=== PATIENT | male | born 1960 | race Hispanic/Latino ===

== ENCOUNTER 2020-02-08 14:04 | Inpatient (IN) | payer OTHER ==
--- OUTSIDE RECORDS SUMMARY | 2020-02-08 14:07 | XMS REPORT | Continuity of Care Document ---
:1960 Author Organization [facility] t Address [address] [place] [address] Dr. Gray [address] [place] [id number] Care Team Providers Name Role Phone Unavailable Unavailable Unavailable Problems This patient has no known problems. Allergies, Adverse Reactions, Alerts This patient has no known allergies or adverse reactions. Medications This patient has no known medications. Procedures This patient has no known procedures. Results This patient has no known results.
--- NOTE | 2020-02-08 15:05 | RAD REPORT ---
EXAM DESCRIPTION: RAD - Chest Single View - 02/08/2020 2:56 pm CLINICAL HISTORY: CONGESTION Chest pain. COMPARISON: No comparisons FINDINGS: Portable technique limits examination quality. Mild bilateral pulmonary opacities are present likely representing interstitial pneumonia. The heart is mildly enlarged in size. No displaced fractures.
[2020-02-08] MEDS ORDERED: AZITHROMYCIN 250 MG TAB ONE (15:24)
[2020-02-08] MEDS ORDERED: prednisoLONE 15 MG/5 ML OSYR ONE (15:25)
--- NOTE | 2020-02-08 15:50 | EDPHYS ---
Physician Documentation [facility] Name: Tobin Alfonso Sr Age: 59 yrs Sex: Male : 1960 Arrival Date: 02/08/2020 Time: 14:11 Bed 19 Private MD: ED Physician Radu Medel HPI: 02/07 14:45 This 59 yrs old Male presents to ER via Ambulatory with complaints of ma2 Weakness, Fever, Vomiting/Diarrhea, Low O2, COVID positive. 14:45 This 59 yrs old Male presents to ER via Ambulatory with complaints of ma2 Weakness, Fever, Vomiting/Diarrhea, Low O2, COVID positive. 14:45 Onset: The symptoms/episode began/occurred gradually. Onset: The symptoms/episode ma2 began/occurred 1 day(s) ago. Associated signs and symptoms: Pertinent negatives: dizziness, headache, paresthesias, syncope, visual field changes, weakness. Severity of symptoms: At their worst the symptoms were moderate in the emergency department the symptoms are unchanged. Current symptoms:. The patient has not experienced similar symptoms in the past. flu like symptoms . Historical: - Allergies: 14:24 No Known Allergies; dm5 - Home Meds: 14:24 unknown HTN and cholesterol meds [Active]; dm5 - PMHx: 14:24 Hypertension; Hyperlipidemia; dm5 - PSHx: 14:24 Hernia repair; nasal surgery; Cholecystectomy; back surgery; dm5 - Immunization history:: Adult Immunizations up to date. - Social history:: Patient/guardian denies using alcohol, street drugs, The patient lives with family, Smoking status: Patient denies any tobacco usage or history of. - Family history:: not pertinent. ROS: 14:47 Constitutional: Negative for fever, chills, and weight loss. ma2 14:47 All other systems are negative. Exam: 14:47 Constitutional: This is a well developed, well nourished patient who is awake, alert, ma2 and in no acute distress. Head/Face: Normocephalic, atraumatic. Eyes: Pupils equal round and reactive to light, extra-ocular motions intact. Lids and lashes normal. Conjunctiva and sclera are non-icteric and not injected. Cornea within normal limits. Periorbital areas with no swelling, redness, or edema. ENT: Nares patent. No nasal discharge, no septal abnormalities noted. Tympanic membranes are normal and external auditory canals are clear. Oropharynx with no redness, swelling, or masses, exudates, or evidence of obstruction, uvula midline. Mucous membranes moist. Neck: Trachea midline, no thyromegaly or masses palpated, and no cervical lymphadenopathy. Supple, full range of motion without nuchal rigidity, or vertebral point tenderness. No Meningismus. Chest/axilla: Normal chest wall appearance and motion. Nontender with no deformity. No lesions are appreciated. Cardiovascular: Regular rate and rhythm with a normal S1 and S2. No gallops, murmurs, or rubs. Normal PMI, no JVD. No pulse deficits. Respiratory: Lungs have equal breath sounds bilaterally, clear to auscultation and percussion. No rales, rhonchi or wheezes noted. No increased work of breathing, no retractions or nasal flaring. Abdomen/GI: Soft, non-tender, with normal bowel sounds. No distension or tympany. No guarding or rebound. No evidence of tenderness throughout. Back: No spinal tenderness. No costovertebral tenderness. Full range of motion. MS/ Extremity: Pulses equal, no cyanosis. Neurovascular intact. Full, normal range of motion. Neuro: Awake and alert, GCS 15, oriented to person, place, time, and situation. Cranial nerves II-XII grossly intact. Motor strength 5/5 in all extremities. Sensory grossly intact. Cerebellar exam normal. Normal gait. Vital Signs: 15:30 BP 158 / 83; Pulse 110; Resp 22; Temp 102.6(O); Pulse Ox 82% on R/A; vc 15:56 BP 171 / 76; Pulse 108; Resp 24; Pulse Ox 93% on R/A; vc 17:00 BP 138 / 77; Pulse 98; Resp 20; Temp 100.7(O); Pulse Ox 92% on 4 lpm NC; vc 17:48 BP 145 / 66; Pulse 99; Resp 20; Pulse Ox 91% on 4 lpm NC; vc MDM: 14:21 Patient medically screened. [facility] 15:48 Data reviewed: vital signs, nurses notes. id2 15:48 Counseling: I had a detailed discussion with the patient and/or guardian regarding: the [facility] historical points, exam findings, and any diagnostic results supporting the discharge/admit diagnosis, the presence of at least one elevated blood pressure reading (>120/80) during this emergency department visit, the need for further work-up and treatment in the hospital. Response to treatment: the patient's symptoms have markedly improved after treatment. 02/07 14:39 Order name: COVID-19 [facility] 02/07 14:39 Order name: Flu [facility] 02/07 14:39 Order name: Strep [facility] 02/07 15:31 Order name: CBC with Diff [facility] 02/07 15:31 Order name: CMP [facility] 02/07 16:20 Order name: Throat Culture [facility] 02/07 14:39 Order name: CXR XRAY; Complete Time: 15:25 [facility] 02/07 16:29 Order name: CBC Smear Scan [facility] 02/07 14:39 Order name: Droplet/Contact Precautions; Complete Time: 16:36 [facility] 02/07 14:39 Order name: Labs collected and sent; Complete Time: 15:54 [facility] 02/07 14:39 Order name: Notify Health Dept [phone]/ ; Complete Time: 16:36 [facility] 02/07 14:39 Order name: O2 Per Protocol; Complete Time: 16:36 [facility] 02/07 14:42 Order name: Vital Signs; Complete Time: 15:54 ma2 Administered Medications: 15:48 CANCELLED (recommend d/c by dr. serna): NS 0.9% 1000 ml IV at 1 bolus Per protocol; ma2 1000 mL bolus 15:53 Drug: Tylenol 1000 mg Route: PO; vc 15:54 Drug: prednisoLONE Liquid 60 mg Route: PO; vc 15:54 Drug: AZITHromycin 500 mg Route: PO; vc 16:32 Drug: Lasix 20 mg Route: IVP; Site: right antecubital; vc 17:00 Follow up: Response: No adverse reaction vc Disposition: 02/08/20 15:50 Hospitalization ordered by Dom Serna for Inpatient Admission. Preliminary diagnosis are Hypoxemia, Pneumonia due to other specified infectious organisms, Coronavirus infection, unspecified. - Bed requested for Intensive Care Unit. - Status is Inpatient Admission. vc - Condition is Stable. - Problem is new. - Symptoms are unchanged. Signatures: Dispatcher [employer] EDPA Asha Shaikh, RN RN Aurelio Berry em1 Radu Medel MD MD id2 Vanessa Hernandez RN RN vc Corrections: (The following items were deleted from the chart) 15:48 15:33 NS 0.9% 1000 ml IV at 1 bolus Per protocol; 1000 mL bolus ordered. id2 id2 16:36 14:39 Document PUI# ordered. id2 vc 17:31 15:50 Hospitalization Ordered by Dom Serna MD for Inpatient Admission. em1 Preliminary diagnosis is Hypoxemia; Pneumonia due to other specified infectious organisms; Coronavirus infection, unspecified. Bed requested for Telemetry/MedSurg (Inpatient). Status is Inpatient Admission. Condition is Stable. Problem is new. Symptoms are unchanged. id2 18:13 17:31 02/08/2020 15:50 Hospitalization Ordered by Dom Serna MD for Inpatient vc Admission. Preliminary diagnosis is Hypoxemia; Pneumonia due to other specified infectious organisms; Coronavirus infection, unspecified. Bed requested for Intensive Care Unit. Status is Inpatient Admission. Condition is Stable. Problem is new. Symptoms are unchanged. em1
--- NOTE | 2020-02-08 15:50 | ER ---
Nurse's Notes [facility] Name: Tobin Alfonso Sr Age: 59 yrs Sex: Male : 1960 Arrival Date: 02/08/2020 Time: 14:11 Bed 19 Private MD: Diagnosis: Hypoxemia;Pneumonia due to other specified infectious organisms;Coronavirus infection, unspecified Presentation: 02/07 14:20 Chief complaint: Patient states: tested for COVID 2 weeks ago and was negative. Mother dm5 in law tested positive and he has been around her. Pt c/o difficulty breathing, cough, sneezing, n/v, temp of 102.8 reported at home. O2 saturation reported to be 85% at home. Coronavirus screen: Surgical mask placed on patient. Patient moved to private room, placed in contact and droplet isolation with eye protection until further assessment. Patient reports a cough. Patient reports shortness of breath or difficulty breathing. Patient reports a measured and/or subjective temperature greater than 100.4F. Patient reports contact with known and/or suspected case of COVID-19. Ebola Screen: Patient negative for fever greater than or equal to 101.5 degrees Fahrenheit, and additional compatible Ebola Virus Disease symptoms Patient denies exposure to infectious person. Patient denies travel to an Ebola-affected area in the 21 days before illness onset. No symptoms or risks identified at this time. Risk Assessment: Do you want to hurt yourself or someone else? Patient reports no desire to harm self or others. Onset of symptoms was February 08, 2020. 14:20 Method Of Arrival: Ambulatory [facility] 14:20 Acuity: ANGELICA 3 dm5 15:15 Initial Sepsis Screen: Does the patient meet any 2 criteria? RR > 20 per min. Temp vc <36.0*C (96.8*F)) or > 38.3*C (100.9*F). HR > 90 bpm. Yes Does the patient have a suspected source of infection? Yes: Productive cough/pneumonia If YES to both, name of provider notified: Radu Medel MD. Historical: - Allergies: 14:24 No Known Allergies; dm5 - Home Meds: 14:24 unknown HTN and cholesterol meds [Active]; dm5 - PMHx: 14:24 Hypertension; Hyperlipidemia; dm5 - PSHx: 14:24 Hernia repair; nasal surgery; Cholecystectomy; back surgery; dm5 - Immunization history:: Adult Immunizations up to date. - Social history:: Patient/guardian denies using alcohol, street drugs, The patient lives with family, Smoking status: Patient denies any tobacco usage or history of. - Family history:: not pertinent. Screenin:15 Abuse screen: Denies threats or abuse. Nutritional screening: No deficits noted. vc Tuberculosis screening: No symptoms or risk factors identified. Fall Risk None identified. Assessment: 15:15 General: Appears in no apparent distress. uncomfortable, ill, Behavior is calm, vc cooperative, appropriate for age. 15:15 Pain: Complains of pain in generalized Pain does not radiate. Pain currently is 8 out vc of 10 on a pain scale. Quality of pain is described as aching. Neuro: Level of Consciousness is awake, alert, obeys commands, Oriented to person, place, time, situation, Appropriate for age. Cardiovascular: Capillary refill < 3 seconds Patient's skin is warm and dry. Respiratory: Airway is patent Respiratory effort is even, unlabored, Respiratory pattern is regular, symmetrical. GI: No signs and/or symptoms were reported involving the gastrointestinal system. : No signs and/or symptoms were reported regarding the genitourinary system. EENT: No signs and/or symptoms were reported regarding the EENT system. Derm: Skin is intact, Skin is clammy, Skin is flushed, Skin temperature is hot. 15:30 Reassessment: No blood cultures need, per MD, symptoms consistent with viral infection. vc 16:15 Reassessment: Patient appears in no apparent distress at this time. Patient and/or vc family updated on plan of care and expected duration. Pain level reassessed. 17:15 Reassessment: Patient appears in no apparent distress at this time. Patient and/or vc family updated on plan of care and expected duration. Pain level reassessed. Patient states feeling better. 17:40 Reassessment: Patient appears in no apparent distress at this time. Patient and/or vc family updated on plan of care and expected duration. Pain level reassessed. Patient is alert, oriented x 3, equal unlabored respirations, skin warm/dry/pink. Patient states feeling better. Patient states symptoms have improved. 18:13 Reassessment: Patient admitted to ICU as a bed 10. Patient will be a tele patient. vc Vital Signs: 15:30 BP 158 / 83; Pulse 110; Resp 22; Temp 102.6(O); Pulse Ox 82% on R/A; vc 15:56 BP 171 / 76; Pulse 108; Resp 24; Pulse Ox 93% on R/A; vc 17:00 BP 138 / 77; Pulse 98; Resp 20; Temp 100.7(O); Pulse Ox 92% on 4 lpm NC; vc 17:48 BP 145 / 66; Pulse 99; Resp 20; Pulse Ox 91% on 4 lpm NC; vc ED Course: 14:11 Patient arrived in ED. mr 14:21 Radu Medel MD is Attending Physician. ma2 14:22 Triage completed. dm5 14:45 Vanessa Hernandez, RN is Primary Nurse. vc 14:56 CXR XRAY In Process Unspecified. EDMS 15:15 Arm band placed on. vc 15:15 Patient has correct armband on for positive identification. Bed in low position. Pulse vc ox on. NIBP on. 15:49 Dom Serna MD is Hospitalizing Provider. ma2 18:12 No provider procedures requiring assistance completed. Patient admitted, IV remains in vc place. Administered Medications: 15:48 CANCELLED (recommend d/c by dr. serna): NS 0.9% 1000 ml IV at 1 bolus Per protocol; ma2 1000 mL bolus 15:53 Drug: Tylenol 1000 mg Route: PO; vc 15:54 Drug: prednisoLONE Liquid 60 mg Route: PO; vc 15:54 Drug: AZITHromycin 500 mg Route: PO; vc 16:32 Drug: Lasix 20 mg Route: IVP; Site: right antecubital; vc 17:00 Follow up: Response: No adverse reaction vc Outcome: 15:50 Decision to Hospitalize by Provider. ma2 18:12 Admitted to accompanied by tech, via wheelchair, with oxygen, with chart, Report called vc to TOMAS Mason 18:12 Condition: improved 18:13 Patient left the ED. vc Signatures: Dispatcher [employer] EDMS Asha Shaikh, RN RN raymundo HernandezaNely mr Radu Medel MD MD ma2 Vanessa Hernandez RN RN vc
[2020-02-08 15:59] LABS: Absolute Lymphocytes (CBC) 0.6 K/uL (0.7-4.9); Hematocrit 44.1 % (39.6-49.0); Lymphocytes % 5.9 % (15.3-44.8); MPV 7.5 fL (7.6-11.3); RBC Red Blood Cell Count 5.03 M/uL (4.33-5.43)
[2020-02-08 16:18] LABS: Albumin 2.8 g/dL (3.4-5.0); Potassium 3.4 mmol/L (3.5-5.1); Protein, Total 7.6 g/dL (6.4-8.2)
[2020-02-08] MEDS ORDERED: FUROSEMIDE 20 MG/ 2ML VIAL ONE (16:21)
[2020-02-08 16:29] LABS: Blood Morphology Comment NOT SEEN (NOT SEEN); Platelet Estimate ADEQ; Urine White Blood Cell Casts OK
--- NOTE | 2020-02-08 16:39 | P.HP ---
Certification for Inpatient Patient admitted to: Observation With expected LOS: <2 Midnights Patient will require the following post-hospital care: None Practitioner: I am a practitioner with admitting privileges, knowledge of patient current condition, hospital course, and medical plan of care. Services: Services provided to patient in accordance with Admission requirements found in Title 42 Section 412.3 of the Code of Federal Regulations <Sergio Wells - Last Filed: 02/08/20 16:44> Patient History Date of Service: 02/08/20 Primary Care Provider: Humberto Wells MD Reason for admission: Covid Pneumonia History of Present Illness: 59-year-old male with past medical history of hypertension and hyperlipidemia presents to the emergency room complaining of worsening shortness of breath. Patient states that 2 weeks ago patient was screened for Covid and was informed last week that he was negative. Since then he states that his [id number], brother and sister have all tested positive. States that brother and sister were in [facility] floating the [place] and shortly after tested positive. Patient also states that at work he is usually in contact with many people. States that he has not been very compliant with wearing a mask. States that approximately 1 week ago patient started with a cough. States that the cough has progressively worsened. States that he vomited 6 x 2 days ago, 2 x 1 day ago and has not vomited today. States that he continues with the cough and feels short of breath. In the emergency room patient was tested for Covid pneumonia. Currently blood work is pending. He is requiring O2 support at 2 L nasal cannula to maintain his oxygen saturations above 90% patient states he does not use oxygen at home. States that he is a little sore across the upper right and left abdominal quadrants likely from vomiting. In emergency room patient received IV steroids and IV Lasix. Fluids were discontinued and patient was placed on O2 support. On examination patient is stable. He is not in respiratory distress. His breath sounds are clear with no wheezing or rhonchi. He is minimally tender to palpation in the left upper and right upper abdominal quadrants. Patient will be admitted to observation. Home medications list reviewed: No - Past Medical/Surgical History Diabetic: No Past Medical History: Reviewed- Non-Contributory -: Nasal septal surgery -: Inguinal Hernia repair Psychosocial/ Personal History: Patient lives at home with - Family History Family History: Reviewed- Non-Contributory - Social History Smoking Status: Never smoker Alcohol use: Yes CD- Drugs: No Caffeine use: Yes Place of Residence: Home <Sergio Wells - Last Filed: 02/08/20 16:44> Date of Service: 02/08/20 <Dom Serna - Last Filed: 02/08/20 17:30> Allergies Unable to Assess Allergy (Unverified 02/08/20 17:22) Review of Systems General: As per HPI Eyes: Unremarkable ENT: Unremarkable Respiratory: Cough, Shortness of Breath Cardiovascular: Unremarkable Gastrointestinal: Vomiting Musculoskeletal: Unremarkable Integumentary: Unremarkable Neurological: Unremarkable <Sergio Wells - Last Filed: 02/08/20 16:44> Physical Examination - Vital Signs Temperature: 100.7 F Blood Pressure: 124/97 Pulse: 107 Respirations: 20 Pulse Ox (%): 90 - Physical Exam General: Alert, In no apparent distress, Oriented x3 HEENT: Atraumatic, Normocephalic, PERRLA Neck: Supple, Other (Trachea midline) Respiratory: Clear to auscultation bilaterally, Normal air movement Cardiovascular: No edema, Normal pulses, Normal S1 S2 Capillary refill: <2 Seconds Gastrointestinal: Normal bowel sounds, Soft and benign, Non-distended, Tenderness (Mild abdominal tenderness with palpation at right and left upper quadrant) Musculoskeletal: No swelling, No contractures, No erythema, No tenderness Integumentary: No rashes, No breakdown, No significant lesion Neurological: Normal gait, Normal speech, Normal strength at 5/5 x4 extr, Normal tone - Studies Laboratory Data (last 24 hrs) 02/08/20 15:48: Sodium 138, Potassium 3.4 L, BUN 25 H, Creatinine 1.71 H, Glucose 134 H, Total Bilirubin 1.0, AST 49 H, ALT 58, Alkaline Phosphatase 92 02/08/20 15:48: WBC 9.6, Hgb 14.7, Hct 44.1, Plt Count 254 Microbiology Data (last 24 hrs): 02/08/20 15:35 Nasopharnyx Influenza Type A Antigen Screen - Final 02/08/20 15:35 Nasopharnyx Influenza Type B Antigen Screen - Final 02/08/20 15:35 Throat Group A Streptococcus Rapid Screen - Final <Sergio Wells - Last Filed: 02/08/20 16:44> - Studies Laboratory Data (last 24 hrs) 02/08/20 15:48: Sodium 138, Potassium 3.4 L, BUN 25 H, Creatinine 1.71 H, Glucose 134 H, Total Bilirubin 1.0, AST 49 H, ALT 58, Alkaline Phosphatase 92 02/08/20 15:48: WBC 9.6, Hgb 14.7, Hct 44.1, Plt Count 254 Microbiology Data (last 24 hrs): 02/08/20 15:35 Nasopharnyx Coronavirus COVID-19 PCR - Final 02/08/20 15:35 Nasopharnyx Influenza Type A Antigen Screen - Final 02/08/20 15:35 Nasopharnyx Influenza Type B Antigen Screen - Final 02/08/20 15:35 Throat Group A Streptococcus Rapid Screen - Final <DaphneDom Pennington - Last Filed: 02/08/20 17:30> Assessment and Plan - Plan Impression: Acute respiratory failure secondary to suspected Covid pneumonia Essential hypertension Hyperlipidemia Cough Plan: Acute respiratory failure secondary to suspected Covid pneumonia: Patient requiring 4 L nasal cannula to maintain oxygen saturations at 90%. Will continue O2 support. Consult pulmonology. Will continue pulmonology recommendations. Continue IV Lasix 20 mg daily dose, IV dexamethasone 2 mg q.8 hr, will hold off on IV fluids. The goal is to return patient to his breathing baseline. Patient does not use home oxygen. Will monitor Covid screen test results. Patient will likely require oral steroids for 10 days on discharge and home isolation until results of Covid screen test are available. Essential hypertension: Will monitor blood pressure. Will resume home medications once verified. Hyperlipidemia: Will resume home medications once verified Cough: Will order Tessalon Perles Discharge Plan: Home Plan to discharge in: 48 Hours - Advance Directives Does patient have a Living Will: No Does patient have a Durable POA for Healthcare: No - Code Status/Comfort Care Code Status Assessed: Yes Time Spent Managing Pts Care (In Minutes): 55 <Sergio Wells - Last Filed: 02/08/20 16:44> Physician Review Additional Text: History and physical reviewed patient interviewed agree with diagnosis of adan virus pneumonia patient has been vomiting start on IV fluids patient has a renal insufficiency probably acute start on IV fluids Dc Lasix monitor electrolytes patient is febrile CBCs normal <Dom Serna - Last Filed: 02/08/20 17:30>
[2020-02-08] MEDS ORDERED: ONDANSETRON 4 MG/2 ML VIAL IV PRN (17:52)
[2020-02-08] MEDS: NA CHLORIDE 0.9% 1,000 ML IV SCH (20:12)
[2020-02-08] MEDS: BENZONATATE 100 MG CAP PO PRN (20:22)
[2020-02-08] MEDS ORDERED: AZITHROMYCIN IV 500 MG in NA CHLORIDE 0.9% 250 ML IVPB ONE (21:08)
[2020-02-08] MEDS: ALBUTEROL INHALER 60 PUFF/8 GM IH PRN (22:30)
[2020-02-09] MEDS: ENOXAPARIN 40 MG/0.4 ML SQ SCH ×3 (00:41→20:17)
[2020-02-09] MEDS: dexAMETHasone 10 MG/ML VIAL IV SCH ×2 (00:41→09:00)
[2020-02-09] MEDS ORDERED: dexAMETHasone 10 MG/ML VIAL IV SCH (02:00)
[2020-02-09 05:45] LABS: Absolute Lymphocytes (CBC) 0.3 K/uL (0.7-4.9); Hematocrit 45.7 % (39.6-49.0); Lymphocytes % 2.8 % (15.3-44.8); MPV 8.2 fL (7.6-11.3); RBC Red Blood Cell Count 5.14 M/uL (4.33-5.43)
[2020-02-09 06:12] LABS: Protime INR 1.36
--- NOTE | 2020-02-09 07:00 | P.PN ---
Date of Service: 02/09/20 Persistent hypoxemia; not in negative pressure room; at this time will increase oxygentaion; do not have high flow O2 available; will place on 100% NRB. Lovenox q12h; antibiotics pending procalc. IV dexamethasone dosage increased.
[2020-02-09] MEDS: NA CHLORIDE 0.9% 1,000 ML IV SCH (07:20)
[2020-02-09 07:51] LABS: ALT/SGPT 55 U/L (12-78); AST/SGOT 49 U/L (15-37); Albumin 2.7 g/dL (3.4-5.0); Alkaline Phosphatase 88 U/L (45-117); BUN Blood Urea Nitrogen 22 mg/dL (7-18); Bicarbonate 24 mmol/L (21-32); Bilirubin Total 0.6 mg/dL (0.2-1.0); Ferritin 826.9 ng/mL (26-388); Glucose Level 165 mg/dL (74-106); Magnesium 2.3 mg/dL (1.8-2.4); NT PRO-BNP 374 pg/mL (<125); Phosphorus 1.4 mg/dL (2.5-4.9); Potassium 3.7 mmol/L (3.5-5.1); Protein, Total 7.8 g/dL (6.4-8.2); Sodium Level 140 mmol/L (136-145); Troponin I < 0.02 ng/mL (0.0-0.045)
[2020-02-09] MEDS ORDERED: FUROSEMIDE 20 MG/ 2ML VIAL IV ONE (08:00)
[2020-02-09] MEDS ORDERED: VALSARTAN 160 MG TAB PO SCH (09:00)
[2020-02-09] MEDS ORDERED: FUROSEMIDE 20 MG/ 2ML VIAL IV SCH (09:00)
[2020-02-09] MEDS: hydroCHLOROthiazide 12.5 MG CAP PO SCH (09:17)
[2020-02-09] MEDS: ASCORBIC ACID 500 MG TABLET PO SCH (09:18)
[2020-02-09] MEDS: EZETIMIBE 10 MG TAB PO SCH (09:18)
[2020-02-09] MEDS: ROSUVASTATIN 10 MG TAB PO SCH (09:22)
[2020-02-09] MEDS: dexAMETHasone 4 MG/ML VIAL IV SCH ×2 (09:23→17:24)
[2020-02-09] MEDS: levoFLOXacin 500 MG TAB PO SCH (09:53)
[2020-02-09] MEDS: BENZONATATE 100 MG CAP PO PRN (09:54)
[2020-02-09] MEDS: BISOPROLOL 5 MG TABLET PO SCH (09:59)
[2020-02-09] MEDS: ZINC SULFATE 220 MG CAP PO SCH ×2 (09:59→20:18)
--- NOTE | 2020-02-09 11:00 | P.PN ---
Subjective Date of Service: 02/09/20 Primary Care Provider: Humberto Wells MD Chief Complaint: Covid Pneumonia Subjective: Tolerating diet, New changes (Patient was having difficulty with breathing. Despite being on a non-rebreather mask patient was having difficulty maintaining O2 saturations above 90%. He was placed on BiPAP to help with his breathing. Is doing well now.) Review of Systems General: Fever Eyes: Unremarkable ENT: Unremarkable Respiratory: Cough, Shortness of Breath, As per HPI Cardiovascular: Unremarkable Gastrointestinal: Unremarkable Musculoskeletal: Unremarkable Integumentary: Unremarkable Neurological: Unremarkable Physical Examination - Vital Signs Temperature: 99.8 F Blood Pressure: 157/76 Pulse: 123 Respirations: 24 Pulse Ox (%): 93 - Physical Exam General: Alert, In no apparent distress, Oriented x3 HEENT: Atraumatic, Normocephalic, PERRLA Neck: Supple, Other (Trachea midline) Respiratory: Normal air movement Cardiovascular: No edema, Normal pulses, Regular rate/rhythm, Normal S1 S2 Capillary refill: <2 Seconds Gastrointestinal: Normal bowel sounds, Soft and benign, Non-distended Musculoskeletal: No swelling, No erythema Integumentary: No rashes, No breakdown, No significant lesion Neurological: Normal gait, Normal speech, Normal strength at 5/5 x4 extr - Studies Laboratory Data (last 24 hrs) 02/09/20 05:00: Sodium Cancelled, Potassium Cancelled, BUN Cancelled, Creatinine Cancelled, Glucose Cancelled 02/09/20 04:50: Sodium 140, Potassium 3.7, BUN 22 H, Creatinine 1.39 H, Glucose 165 H, Phosphorus 1.4 L, Magnesium 2.3, Total Bilirubin 0.6, AST 49 H, ALT 55, Alkaline Phosphatase 88, Troponin I < 0.02 02/09/20 04:50: PT 15.9 H, INR 1.36, APTT 35.9 02/09/20 04:50: WBC 12.1 H D, Hgb 15.2, Hct 45.7, Plt Count 290 02/08/20 15:48: Sodium 138, Potassium 3.4 L, BUN 25 H, Creatinine 1.71 H, Glucose 134 H, Total Bilirubin 1.0, AST 49 H, ALT 58, Alkaline Phosphatase 92 02/08/20 15:48: WBC 9.6, Hgb 14.7, Hct 44.1, Plt Count 254 Microbiology Data (last 24 hrs): 02/08/20 15:35 Nasopharnyx Coronavirus COVID-19 PCR - Final 02/08/20 15:35 Nasopharnyx Influenza Type A Antigen Screen - Final 02/08/20 15:35 Nasopharnyx Influenza Type B Antigen Screen - Final 02/08/20 15:35 Throat Group A Streptococcus Rapid Screen - Final Assessment And Plan - Plan Impression: Acute respiratory failure secondary to suspected Covid pneumonia Essential hypertension Hyperlipidemia Cough Plan: Acute respiratory failure secondary to suspected Covid pneumonia: Patient was having difficulty maintaining O2 saturations above 90% on nasal cannula and then on non-rebreather mask. Patient was placed on BiPAP support and is doing well with current settings. Will continue O2/BiPAP support. Will continue pulmonology recommendations. Continue IV Lasix 20 mg daily dose as needed, IV dexamethasone 2 mg q.8 hr, will hold off on IV fluids. Will start p.o. levofloxacin 500 mg daily dose for empiric coverage. Of note, patient's D-dimer is 1209 this morning, procalcitonin is 3.59 and creatinine improved from 1.7 down to 1.3. After speaking to Pulmonology - Dr Serna Elevation in D-dimer and procalcitonin related to Covid PNA. Patient has adequate anticoagulation with Lovenox 40 mg subq b.i.d. Patient does not appear septic. Patient is tolerating p.o. diet but desaturates quickly when eating. The goal is to return patient to his breathing baseline. Patient does not use home oxygen. Will monitor Covid screen test results. Patient will likely require oral steroids for 10 days on discharge and home isolation until results of Covid screen test are available. Spoke with patient's -Carlene today. Gave updated on patient's status. very appreciative of update. Essential hypertension: Will monitor blood pressure. Will resume home medications once verified. Blood pressure slightly elevated at 150 7/76 this morning with a pulse rate of 123 Hyperlipidemia: Will resume home medications once verified Cough: Continue Tespromiseon Alison Physician Review Additional Text: History and physical reviewed patient interviewed agree with diagnosis of adan virus pneumonia patient has been vomiting start on IV fluids patient has a renal insufficiency probably acute start on IV fluids Dc Lasix monitor electrolytes patient is febrile CBCs normal
[2020-02-09] MEDS: ACETAMINOPHEN 325 MG TABLET PO PRN ×2 (11:23→17:47)
[2020-02-09] MEDS ORDERED: AZITHROMYCIN IV 500 MG in NA CHLORIDE 0.9% 250 ML IVPB SCH (17:00)
[2020-02-10] MEDS: dexAMETHasone 4 MG/ML VIAL IV SCH ×3 (00:08→17:16)
[2020-02-10] MEDS: ALBUTEROL INHALER 60 PUFF/8 GM IH PRN (04:40)
[2020-02-10] MEDS: BISOPROLOL 5 MG TABLET PO SCH (08:05)
[2020-02-10] MEDS: EZETIMIBE 10 MG TAB PO SCH (08:06)
[2020-02-10] MEDS: ASCORBIC ACID 500 MG TABLET PO SCH (08:06)
[2020-02-10] MEDS: levoFLOXacin 500 MG TAB PO SCH (08:06)
[2020-02-10] MEDS: ROSUVASTATIN 10 MG TAB PO SCH (08:06)
[2020-02-10] MEDS: hydroCHLOROthiazide 12.5 MG CAP PO SCH (08:07)
[2020-02-10] MEDS: ZINC SULFATE 220 MG CAP PO SCH ×2 (08:07→19:30)
[2020-02-10] MEDS: ENOXAPARIN 40 MG/0.4 ML SQ SCH ×2 (08:08→19:29)
[2020-02-10] MEDS: BENZONATATE 100 MG CAP PO PRN ×2 (08:39→20:04)
[2020-02-10] MEDS ORDERED: FUROSEMIDE 20 MG/ 2ML VIAL IV SCH (09:00)
[2020-02-10 10:49] LABS: Absolute Lymphocytes (CBC) 0.3 K/uL (0.7-4.9); Basophils % 1.2 % (0-1.3); Hematocrit 42.7 % (39.6-49.0); MPV 8.2 fL (7.6-11.3)
[2020-02-10 11:12] LABS: Potassium 3.9 mmol/L (3.5-5.1)
--- NOTE | 2020-02-10 11:15 | P.PN ---
Subjective Date of Service: 02/10/20 Primary Care Provider: Humberto Wells MD Chief Complaint: Covid Pneumonia Subjective: Tolerating diet, Doing well (Still on CPAP oxygen support. Maintaining oxygen saturations at 93%.) Review of Systems General: Unremarkable Eyes: Unremarkable ENT: Unremarkable Respiratory: Cough, Shortness of Breath Cardiovascular: Unremarkable Gastrointestinal: Unremarkable Musculoskeletal: Unremarkable Neurological: Unremarkable Physical Examination - Vital Signs Temperature: 97.5 F Blood Pressure: 125/58 Pulse: 88 Respirations: 28 Pulse Ox (%): 95 - Physical Exam General: Alert, In no apparent distress, Oriented x3, Cooperative HEENT: Atraumatic, Normocephalic, PERRLA Neck: Supple, Other (Trachea midline) Respiratory: Clear to auscultation bilaterally, Normal air movement, Other (On CPAP) Cardiovascular: No edema, Regular rate/rhythm, Normal S1 S2 Capillary refill: <2 Seconds Gastrointestinal: Normal bowel sounds, Soft and benign, Non-distended Musculoskeletal: No swelling, No erythema, No tenderness Integumentary: No breakdown, No significant lesion, No tenderness/swelling Neurological: Normal speech, Normal strength at 5/5 x4 extr, Normal tone - Studies Microbiology Data (last 24 hrs): 02/08/20 15:35 Throat Culture & Sensitivity - Final NORMAL UPPER RESPIRATORY MARISSA GROWN. Assessment And Plan - Plan Impression: Acute respiratory failure secondary to suspected Covid pneumonia Essential hypertension Hyperlipidemia Cough Plan: Acute respiratory failure secondary to suspected Covid pneumonia: Patient continues having difficulty maintaining O2 saturations above 90%. Patient zoraida nues on BiPAP support and is doing well with current settings. He is maintaining oxygen saturations of 95% this morning. Will continue O2/CPAP support. Will continue pulmonology recommendations. Continue IV Lasix 20 mg daily dose as needed, IV dexamethasone 2 mg q.8 hr, will hold off on IV fluids. Continue p.o. levofloxacin 500 mg daily dose for empiric coverage. Patient will also receive convalescent plasma this morning. Of note, patient's D-dimer is 1209 this morning, procalcitonin is 3.59 and creatinine improved from 1.7 down to 1.3 and has remained at 1.3 today. After speaking to Pulmonology - Dr Serna Elevation in D-dimer and procalcitonin related to Covid PNA. Patient has adequate anticoagulation with Lovenox 40 mg subq b.i.d. Patient does not appear septic. Patient is tolerating p.o. diet but desaturates quickly when eating. The goal is to return patient to his breathing baseline. Patient does not use home oxygen. Will continue to wean patient off CPAP as tolerated. Covid screen test was positive results. Patient will likely require oral steroids for 10 days on discharge and home isolation. Spoke with patient's -Carlene today. Gave updated on patient's status. very appreciative of update. Essential hypertension: Continue to monitor blood pressure. Continue hydrochlorothiazide 12.5 p.o. daily. Blood pressure has remained stable today. Hyperlipidemia: Will resume home medications as needed. Cough: Continue Tessalon Perles Discharge Plan: Home Plan to discharge in: 48 Hours - Code Status/Comfort Care Code Status Assessed: Yes Physician Review Additional Text: History and physical reviewed patient interviewed agree with diagnosis of adan virus pneumonia patient has been vomiting start on IV fluids patient has a renal insufficiency probably acute start on IV fluids Dc Lasix monitor electrolytes patient is febrile CBCs normal Time Spent Managing PTS Care (In Minutes): 45
[2020-02-10 12:46] LABS: Blood Morphology Comment NOT SEEN (NOT SEEN); Platelet Estimate ADEQ; Urine White Blood Cell Casts OK
[2020-02-10] MEDS ORDERED: NA CHLORIDE 0.9% 250 ML IV SCH (16:00)
--- NOTE | 2020-02-10 16:16 | P.CNS ---
Date of Consult: 02/10/20 Primary Care Provider: Humberto Wells MD Chief Complaint: respiratory failure History of Present Illness: patient is 59 years of age medical history of hypertension hyperlipidemia admitted with coronal virus pneumonia he was hypoxic became worse was placed on BiPAP currently requiring very high concentrations of oxygen multiple family members of tested positive been sick for about a week his cough has gotten progressively worse Allergies No Known Allergies Allergy (Unverified 02/08/20 18:43) Home Medications: Candesartan/Hydrochlorothiazid [Candesartan-Hctz 32-12.5 mg Tb] 1 tab PO DAILY 02/08/20 Ezetimibe [Zetia] 10 mg PO DAILY 02/08/20 Rosuvastatin [Crestor] 10 mg PO DAILY 02/08/20 bisoproloL fumarate [Zebeta] 10 mg PO DAILY 02/08/20 - Past Medical/Surgical History Diabetic: No -: HTN -: HLD -: Nasal septal surgery -: Inguinal Hernia repair -: back sx -: ligia Psychosocial/ Personal History: Patient lives at home with - Social History Alcohol use: Yes CD- Drugs: No Caffeine use: Yes Place of Residence: Home Review of Systems is unable to be obtained Physical Examination Temp Pulse Resp BP Pulse Ox 98.5 F 80 21 H 126/75 89 L 02/10/20 12:00 02/10/20 13:00 02/10/20 13:00 02/10/20 13:00 02/10/20 13:00 General: Other ( deferred) - Problems (1) Pneumonia due to human coronavirus Current Visit: Yes Status: Acute Plan: patient is 59 years of age admitted with pneumonia due to jonel is very hypoxic continue with steroids anti in negative fluid balance agree with the convalescent plasma he is in no longer febrile renal function is mildly impaired increase Lasix to 40 mg daily is currently on CPAP of 14 this 75% FiO2
[2020-02-10] MEDS ORDERED: ONDANSETRON 4 MG/2 ML VIAL IV PRN (16:17)
[2020-02-10] MEDS: FUROSEMIDE 20 MG/ 2ML VIAL IV SCH (17:15)
[2020-02-10] MEDS ORDERED: NA CHLORIDE 0.9% 250 ML ONE (22:04)
[2020-02-11] MEDS: dexAMETHasone 4 MG/ML VIAL IV SCH ×3 (00:11→17:04)
--- NOTE | 2020-02-11 07:31 | RAD REPORT ---
EXAM DESCRIPTION: RAD - Chest Single View - 02/11/2020 6:55 am CLINICAL HISTORY: respiratory failure COMPARISON: Portable February 07 TECHNIQUE: AP portable chest image was obtained 02/11/2020 6:55 am . FINDINGS: Lung volumes remain low. Interstitial and minimal alveolar opacities are scattered in the lung spencer. Chest is not substantially different from the February 07 imaging. Heart and vasculature are normal. No measurable pleural effusion and no pneumothorax. No acute bony abnormality seen. No acute aortic findings suspected. IMPRESSION: Patchy interstitial and alveolar opacities similar to the February 07 study. No new or progressive finding.
[2020-02-11] MEDS: ENOXAPARIN 40 MG/0.4 ML SQ SCH ×2 (08:07→19:32)
[2020-02-11] MEDS: levoFLOXacin 500 MG TAB PO SCH (08:08)
[2020-02-11] MEDS: ROSUVASTATIN 10 MG TAB PO SCH (08:08)
[2020-02-11] MEDS: FUROSEMIDE 20 MG/ 2ML VIAL IV SCH ×2 (08:08→17:03)
[2020-02-11] MEDS: EZETIMIBE 10 MG TAB PO SCH (08:09)
[2020-02-11] MEDS: ZINC SULFATE 220 MG CAP PO SCH ×2 (08:09→19:32)
[2020-02-11] MEDS: BISOPROLOL 5 MG TABLET PO SCH (08:09)
[2020-02-11] MEDS: ASCORBIC ACID 500 MG TABLET PO SCH (08:09)
[2020-02-11] MEDS: hydroCHLOROthiazide 12.5 MG CAP PO SCH (08:09)
[2020-02-11] MEDS: BENZONATATE 100 MG CAP PO PRN ×2 (08:09→17:04)
[2020-02-11] MEDS ORDERED: Remdesivir 200 MG in NA CHLORIDE 0.9% 250 ML IV ONE (09:00)
[2020-02-11 11:04] LABS: Blood Gas Oxyhemoglobin 87.1 % (94-97); Blood O2 Saturation 88.9 % (92-98.5)
[2020-02-11 11:07] LABS: Albumin 2.3 g/dL (3.4-5.0); Bilirubin Direct 0.2 mg/dL (0-0.2); Bilirubin Total 0.4 mg/dL (0.2-1.0); Protein, Total 7.2 g/dL (6.4-8.2)
--- NOTE | 2020-02-11 12:10 | P.PN ---
Subjective Date of Service: 02/11/20 Primary Care Provider: Humberto Wells MD Chief Complaint: respiratory failure Subjective: Other (Patient clinically it appears improved. He reports some improvement but still requiring BiPAP at high-level oxygen.) Physical Examination - Vital Signs Temperature: 97 F Blood Pressure: 122/69 Pulse: 67 Respirations: 34 Pulse Ox (%): 100 - Physical Exam General: Alert Neck: Supple Respiratory: Clear to auscultation bilaterally (Anteriorly), Diminished (Decreased to the bases) Cardiovascular: Normal pulses, Regular rate/rhythm Gastrointestinal: Normal bowel sounds, Soft and benign, Non-distended Neurological: Normal speech, Normal strength at 5/5 x4 extr, Normal tone, Normal affect - Studies Microbiology Data (last 24 hrs): 02/08/20 15:35 Throat Culture & Sensitivity - Final NORMAL UPPER RESPIRATORY MARISSA GROWN. Medications List Reviewed: Yes Assessment & Plan Discharge Plan: Home Plan to discharge in: Greater than 2 days Physician Review Additional Text: Impression: Acute respiratory failure secondary to Covid pneumonia Essential hypertension Hyperlipidemia Chronic renal disease stage III Elevated liver function Plan: Acute respiratory failure secondary to Covid pneumonia: Patient has received plasma. Patient still requires BiPAP at 90% Fi02. Case discussed at length with pulmonology. Continue IV antibiotic therapy for secondary infection. Continue Lasix and dexamethasone. Will add Remdesivir at this time. Patient on DVT prophylaxis. Continue monitor closely. If the patient continues to decline patient will likely require intubation. Will monitor closely. Essential hypertension: Continue to monitor blood pressure. Continue bisoprolol hydrochlorothiazide. Blood pressure has remained stable today. Hyperlipidemia: Will hold medication since the patient will be on Remdesivir Chronic renal disease stage III: Will continue monitor closely. Patient on diuretic therapy due to COVID. Elevated liver function: Will hold statin medication at this time. Will need to monitor this closely as the patient will be started on Remdesivir Time Spent Managing Pts Care (In Minutes): 55
[2020-02-11] MEDS: ALBUTEROL INHALER 60 PUFF/8 GM IH PRN (15:00)
--- NOTE | 2020-02-11 16:49 | P.PN ---
Subjective Date of Service: 02/11/20 Primary Care Provider: Humberto Wells MD Chief Complaint: respiratory failure Patient requiring high concentrations of oxygen [place] trying high-flow nasal cannula oxygen he is on 100% at think he will benefit more from BiPAP and high- flow otherwise he is alert trying to eat vitals are stable Review of Systems is unable to be obtained Physical Examination - Vital Signs Temperature: 97 F Blood Pressure: 115/69 Pulse: 74 Respirations: 20 Pulse Ox (%): 95 - Physical Exam General: Other (Day for) - Studies Medications List Reviewed: Yes Assessment & Plan - Problems (Diagnosis) (1) Pneumonia due to human coronavirus Current Visit: Yes Status: Acute Plan: Patient has respiratory failure from adan virus he is getting redesmir and convalescent plasma in addition to steroids labs reviewed white count is mildly elevated blood sugar is less than 200 he probably be better off on BiPAP resin high-flow nasal cannula
[2020-02-12] MEDS: dexAMETHasone 4 MG/ML VIAL IV SCH ×3 (01:49→16:58)
[2020-02-12 05:37] LABS: Albumin 2.2 g/dL (3.4-5.0); Bilirubin Direct 0.2 mg/dL (0-0.2); Bilirubin Total 0.4 mg/dL (0.2-1.0); Potassium 3.8 mmol/L (3.5-5.1); Protein, Total 6.9 g/dL (6.4-8.2)
[2020-02-12] MEDS: BISOPROLOL 5 MG TABLET PO SCH (08:06)
[2020-02-12] MEDS: ZINC SULFATE 220 MG CAP PO SCH ×2 (08:06→20:07)
[2020-02-12] MEDS: ASCORBIC ACID 500 MG TABLET PO SCH (08:06)
[2020-02-12] MEDS: hydroCHLOROthiazide 12.5 MG CAP PO SCH (08:07)
[2020-02-12] MEDS: levoFLOXacin 500 MG TAB PO SCH (08:07)
[2020-02-12] MEDS: FUROSEMIDE 20 MG/ 2ML VIAL IV SCH ×2 (08:07→16:57)
[2020-02-12] MEDS: ENOXAPARIN 40 MG/0.4 ML SQ SCH (08:07)
[2020-02-12] MEDS: Remdesivir 100 MG in NA CHLORIDE 0.9% 250 ML IV SCH (08:14)
--- NOTE | 2020-02-12 11:10 | P.PN ---
Subjective Date of Service: 02/12/20 Primary Care Provider: Humberto Wells MD Chief Complaint: respiratory failure Subjective: Other (Stable. Patient has received plasma and remdesivir) Physical Examination - Vital Signs Temperature: 98.3 F Blood Pressure: 131/68 Pulse: 66 Respirations: 27 Pulse Ox (%): 96 - Physical Exam General: Alert, In no apparent distress, Cooperative HEENT: Atraumatic Neck: Supple Respiratory: Other (Patient require BiPAP last night. Expect to use high-flow today.) Cardiovascular: Normal pulses, Regular rate/rhythm Neurological: Normal speech, Normal strength at 5/5 x4 extr, Normal tone, Normal affect - Studies Medications List Reviewed: Yes Assessment & Plan Discharge Plan: Home Plan to discharge in: Greater than 2 days Physician Review Additional Text: Impression: Acute respiratory failure secondary to Covid pneumonia Essential hypertension Hyperlipidemia Chronic renal disease stage III Elevated liver function Plan: Acute respiratory failure secondary to Covid pneumonia: Patient has received plasma and remdisiver. Liver function slightly high. Statin medication will be discontinued. Will need to monitor liver function on remdisiver. Will discuss with pulmonology and pharmacology. Patient to continue with BiPAP at night and high-flow oxygen during the day. Patient is slowly improving. Continue current medications. Will further address with pulmonology. Anticipate improvement over the next several days. Essential hypertension: Continue to monitor blood pressure. Continue bisoprolol hydrochlorothiazide. Blood pressure has remained stable today. Hyperlipidemia: Discontinue medication Chronic renal disease stage III: Will continue monitor closely. Patient on diuretic therapy due to COVID. Elevated liver function: Discontinue statin medication. Will need to monitor this closely as the patient will be started on Remdesivir. Will discuss with pharmacology. Time Spent Managing Pts Care (In Minutes): 55
--- NOTE | 2020-02-12 12:58 | P.PN ---
Subjective Date of Service: 02/12/20 Primary Care Provider: Humberto Wells MD Chief Complaint: respiratory failure Patient is improving is looking better did not tolerate high-flow nasal oxygen does better on a BiPAP eating and drinking Review of Systems General: Weakness Physical Examination - Vital Signs Temperature: 98.3 F Blood Pressure: 144/67 Pulse: 62 Respirations: 27 Pulse Ox (%): 91 - Physical Exam General: Other (Deferred) - Studies Medications List Reviewed: Yes Assessment & Plan - Problems (Diagnosis) (1) Pneumonia due to human coronavirus Current Visit: Yes Status: Acute Plan: Patient admitted with respiratory failure due to coronal virus infection continu e with BiPAP Dc high-flow nasal cannula oxygen he is not eating and drinking titrate EPAP down slowly and can be weaned off the BiPAP white count mildly elevated he is improving no significant change in his chest x-ray the be able to be transferred to the floor if is tolerating less than 50% oxygen on BiPAP he has had convalescent plasma and resdesmir
[2020-02-12] MEDS: LORAZEPAM 0.5 MG TABLET PO PRN (16:57)
[2020-02-12] MEDS: ACETAMINOPHEN 325 MG TABLET PO PRN (16:59)
[2020-02-12] MEDS: Enoxaparin 120 MG/0.8 ML SYR SQ SCH (20:06)
[2020-02-13] MEDS: LORAZEPAM 0.5 MG TABLET PO PRN ×3 (00:30→20:45)
[2020-02-13] MEDS: dexAMETHasone 4 MG/ML VIAL IV SCH ×3 (00:30→17:21)
[2020-02-13 05:41] LABS: Albumin 2.3 g/dL (3.4-5.0); Bilirubin Direct 0.3 mg/dL (0-0.2); Bilirubin Total 0.6 mg/dL (0.2-1.0); Potassium 3.8 mmol/L (3.5-5.1); Protein, Total 6.8 g/dL (6.4-8.2)
[2020-02-13] MEDS: levoFLOXacin 500 MG TAB PO SCH (08:11)
[2020-02-13] MEDS: hydroCHLOROthiazide 12.5 MG CAP PO SCH (08:12)
[2020-02-13] MEDS: THIAMINE 200 MG/2 ML INJ IVP SCH (08:12)
[2020-02-13] MEDS: ASCORBIC ACID 500 MG TABLET PO SCH (08:12)
[2020-02-13] MEDS: FUROSEMIDE 20 MG/ 2ML VIAL IV SCH (08:13)
[2020-02-13] MEDS: Enoxaparin 120 MG/0.8 ML SYR SQ SCH ×2 (08:14→20:12)
[2020-02-13] MEDS: ZINC SULFATE 220 MG CAP PO SCH ×2 (08:14→20:12)
[2020-02-13] MEDS: BISOPROLOL 5 MG TABLET PO SCH (08:14)
[2020-02-13] MEDS: Remdesivir 100 MG in NA CHLORIDE 0.9% 250 ML IV SCH (09:18)
[2020-02-13] MEDS: SPIRONOLACTONE 25 MG TABLET PO SCH ×2 (09:19→20:12)
[2020-02-13 10:57] LABS: Arterial Blood Carboxyhemoglob 1.1 % (0-1.5); Blood O2 Saturation 90.1 % (92-98.5)
--- NOTE | 2020-02-13 12:30 | P.PN ---
Subjective Date of Service: 02/13/20 Primary Care Provider: Humberto Wells MD Chief Complaint: respiratory failure Condition stable still requiring 70% oxygen on BiPAP vital signs have been improving renal function improving patient i no fever Review of Systems is unable to be obtained Physical Examination - Vital Signs Temperature: 97.6 F Blood Pressure: 140/78 Pulse: 68 Respirations: 27 Pulse Ox (%): 92 - Physical Exam General: Alert, Oriented x3, Cooperative - Studies Medications List Reviewed: Yes Assessment & Plan - Problems (Diagnosis) (1) Pneumonia due to human coronavirus Current Visit: Yes Status: Acute Plan: Patient admitted with pneumonia due to adan virus as at maximum therapy with anti wire else plasma and is on steroids still requiring around 70% oxygen increase Lasix to 40 mg 1 dose IV daily another dose today
--- NOTE | 2020-02-13 17:20 | P.PN ---
Subjective Date of Service: 02/13/20 Primary Care Provider: Humberto Wells MD Chief Complaint: respiratory failure Subjective: Other (Patient appears improved.) Physical Examination - Vital Signs Temperature: 97.6 F Blood Pressure: 139/68 Pulse: 79 Respirations: 27 Pulse Ox (%): 90 - Physical Exam General: Alert Respiratory: Other (Patient currently on BiPAP.) Cardiovascular: Normal pulses Other Physical/Emotional Findings: I did not go physically in his room today. I was able to visualize and speak to him through the window. He seemed okay. He did not appear in any distress. Patient on BiPAP. Patient using less Fi02. Patient reports he is feeling better. - Studies Medications List Reviewed: Yes Assessment & Plan Discharge Plan: Home Plan to discharge in: 48 Hours Physician Review Additional Text: Impression: Acute respiratory failure secondary to Covid pneumonia Essential hypertension Hyperlipidemia Chronic renal disease stage III Elevated liver function Plan: Acute respiratory failure secondary to Covid pneumonia: Patient has received plasma and remdisiver. Continue monitor liver function. Continue to wean off BiPAP. Patient using less Fi02. Case discussed with pulmonology. Continue with current measures. He appears improved. Anticipate improvement over the next 3 days. Essential hypertension: Continue to monitor blood pressure. Continue bisoprolol hydrochlorothiazide. Blood pressure has remained stable today. Hyperlipidemia: Discontinue medication Chronic renal disease stage III: Will continue monitor closely. Patient on diuretic therapy due to COVID. Elevated liver function: Discontinue statin medication. Will need to monitor this closely as the patient will be started on Remdesivir. Case discussed with pharmacology. Time Spent Managing Pts Care (In Minutes): 55
[2020-02-14] MEDS: dexAMETHasone 4 MG/ML VIAL IV SCH ×3 (01:53→16:23)
[2020-02-14 06:51] LABS: Potassium 4.1 mmol/L (3.5-5.1)
[2020-02-14 06:52] LABS: Albumin 2.2 g/dL (3.4-5.0); Bilirubin Direct 0.2 mg/dL (0-0.2); Bilirubin Total 0.7 mg/dL (0.2-1.0); Protein, Total 7.1 g/dL (6.4-8.2)
[2020-02-14 08:33] LABS: Arterial Blood Carboxyhemoglob 1.1 % (0-1.5); Blood Gas Oxyhemoglobin 90.7 % (94-97); Blood O2 Saturation 92.5 % (92-98.5)
[2020-02-14] MEDS: ZINC SULFATE 220 MG CAP PO SCH ×2 (09:08→20:14)
[2020-02-14] MEDS: levoFLOXacin 500 MG TAB PO SCH (09:09)
[2020-02-14] MEDS: SPIRONOLACTONE 25 MG TABLET PO SCH ×2 (09:09→20:13)
[2020-02-14] MEDS: ASCORBIC ACID 500 MG TABLET PO SCH (09:09)
[2020-02-14] MEDS: Remdesivir 100 MG in NA CHLORIDE 0.9% 250 ML IV SCH (09:10)
[2020-02-14] MEDS: THIAMINE 200 MG/2 ML INJ IVP SCH (09:10)
[2020-02-14] MEDS: Enoxaparin 120 MG/0.8 ML SYR SQ SCH ×2 (09:10→20:14)
[2020-02-14] MEDS: FUROSEMIDE 40 MG/4 ML VIAL IV SCH (09:12)
[2020-02-14] MEDS ORDERED: FUROSEMIDE 40 MG/4 ML VIAL IV ONE (12:29)
--- NOTE | 2020-02-14 12:52 | P.PN ---
Subjective Date of Service: 02/14/20 Primary Care Provider: Humberto Wells MD Chief Complaint: respiratory failure from adan virus Patient is still requiring significant amount of oxygen on BiPAP over is alert he is feeling better a febrile a rapid desaturation off O2 tolerating BiPAP no GI symptoms Review of Systems General: Weakness Respiratory: Shortness of Breath Physical Examination - Vital Signs Temperature: 97.4 F Blood Pressure: 131/70 Pulse: 80 Respirations: 27 Pulse Ox (%): 98 - Physical Exam Other Physical/Emotional Findings: I did not go physically in his room today. I was able to visualize and speak to him through the window. He seemed okay. He did not appear in any distress. Patient on BiPAP. Patient using less Fi02. Patient reports he is feeling better. - Studies Medications List Reviewed: Yes Assessment & Plan - Problems (Diagnosis) (1) Pneumonia due to human coronavirus Current Visit: Yes Status: Acute Plan: Patient is clinically improving although is requiring a lot of oxygen right now continue with BiPAP as able to eat labs reviewed renal function is normal chemistries unremarkable white count is mildly elevated and use dose of Decadron continue with the diuretics maintain in negative fluid balance patient is fully anti coagulated
[2020-02-14] MEDS ORDERED: ENSURE HIGH PROTEIN 237 ML CAN PO PRN (16:12)
--- NOTE | 2020-02-14 16:56 | P.PN ---
Subjective Date of Service: 02/14/20 Primary Care Provider: Humberto Wells MD Chief Complaint: respiratory failure from adan virus Subjective: Other (Patient reports improvement. Still requiring BiPAP at 95% Fi02.) Physical Examination - Vital Signs Temperature: 97.4 F Blood Pressure: 129/74 Pulse: 101 Respirations: 26 Pulse Ox (%): 96 - Physical Exam General: Alert HEENT: Atraumatic Neck: Supple Respiratory: Other (Patient still with increasing shortness of breath especially with exertion. Patient on BiPAP at if I 02-95%) Neurological: Normal speech, Normal strength at 5/5 x4 extr, Normal tone - Studies Medications List Reviewed: Yes Assessment & Plan Discharge Plan: Home Plan to discharge in: Greater than 2 days Physician Review Additional Text: Impression: Acute respiratory failure secondary to Covid pneumonia Essential hypertension Hyperlipidemia Chronic renal disease stage III Elevated liver function Plan: Acute respiratory failure secondary to Covid pneumonia: Patient has received, less some plasma. Patient continues on room to severe. Continue monitor liver function test. Patient currently on BiPAP. Continue to try to wean off. Case discussed with pulmonology. Patient stable this time. Anticipate improvement over the next 3 days. Essential hypertension: Continue to monitor blood pressure. Continue bisoprolol hydrochlorothiazide. Blood pressure has remained stable today. Hyperlipidemia: Medication has been discontinued Chronic renal disease stage III: Will continue monitor closely. Patient on diuretic therapy due to COVID. Elevated liver function: Discontinue statin medication. Will need to monitor this closely as the patient will be started on Remdesivir. Case discussed with pharmacology. Time Spent Managing Pts Care (In Minutes): 55
[2020-02-14] MEDS: TRAMADOL HCL 50 MG TAB PO PRN (16:57)
[2020-02-14] MEDS: LORAZEPAM 0.5 MG TABLET PO PRN (21:28)
[2020-02-15] MEDS: dexAMETHasone 4 MG/ML VIAL IV SCH ×3 (01:01→16:02)
[2020-02-15] MEDS: TRAMADOL HCL 50 MG TAB PO PRN ×2 (05:56→12:30)
[2020-02-15 06:28] LABS: Albumin 2.1 g/dL (3.4-5.0); Bilirubin Direct 0.2 mg/dL (0-0.2); Bilirubin Total 0.7 mg/dL (0.2-1.0); Potassium 3.9 mmol/L (3.5-5.1); Protein, Total 7.1 g/dL (6.4-8.2)
[2020-02-15] MEDS: FUROSEMIDE 40 MG/4 ML VIAL IV SCH (08:05)
[2020-02-15] MEDS: Enoxaparin 120 MG/0.8 ML SYR SQ SCH ×2 (08:05→23:13)
[2020-02-15] MEDS: ZINC SULFATE 220 MG CAP PO SCH ×2 (08:06→21:00)
[2020-02-15] MEDS: THIAMINE 200 MG/2 ML INJ IVP SCH (08:06)
[2020-02-15] MEDS: ASCORBIC ACID 500 MG TABLET PO SCH (08:07)
[2020-02-15] MEDS: SPIRONOLACTONE 25 MG TABLET PO SCH ×2 (08:07→21:00)
[2020-02-15] MEDS: levoFLOXacin 500 MG TAB PO SCH (08:07)
--- NOTE | 2020-02-15 08:42 | RAD REPORT ---
EXAM DESCRIPTION: RAD - Chest Single View - 02/15/2020 7:14 am CLINICAL HISTORY: Pneumonia, COVID positive COMPARISON: Portable chest February 10 TECHNIQUE: AP portable chest image was obtained 02/15/2020 7:14 am . FINDINGS: Lung volumes remain relatively low. Left base pneumonia changes are present. There is wanda tional hazy airspace opacification in both lung spencer. Since the prior examination patient has developed extensive subcutaneous emphysema across the chest a nd extending into the neck. Pneumomediastinum is not confirmed but may well be present. Heart and vasculature are normal. No measurable pleural effusion and no pneumothorax. No acute bony abnormality seen. No acute aortic findings suspected. IMPRESSION: Left base pneumonia with hazy ground-glass opacities scattered in both lung spencer. Extensive subcutaneous emphysema in the chest and neck has developed since the February 10 examination.
--- NOTE | 2020-02-15 09:48 | P.PN ---
Subjective Date of Service: 02/15/20 Primary Care Provider: Humberto Wells MD Chief Complaint: respiratory failure from adan virus Patient is not doing well requiring significant amount of oxygen as not developed subcutaneous emphysema unable to decrease the oxygen concentration Review of Systems General: Weakness Respiratory: Cough, Shortness of Breath Physical Examination - Vital Signs Temperature: 97 F Blood Pressure: 136/81 Pulse: 95 Respirations: 25 Pulse Ox (%): 89 - Physical Exam Other Physical/Emotional Findings: I did not go physically in his room today. I was able to visualize and speak to him through the window. He seemed okay. He did not appear in any distress. Patient on BiPAP. Patient using less Fi02. Patient reports he is feeling better. - Studies Medications List Reviewed: Yes Assessment & Plan - Problems (Diagnosis) (1) Pneumonia due to human coronavirus Current Visit: Yes Status: Acute Plan: Patient has ARDS from adan wire S acquiring high concentrations of oxygen has now subcutaneous emphysema on the chest x-ray BiPAP has been adjusted pill requiring high concentrations of oxygen vital signs are stable renal function is improving no fever prognosis guarded neck step would be to intubate him if needed
[2020-02-15] MEDS: Remdesivir 100 MG in NA CHLORIDE 0.9% 250 ML IV SCH (10:10)
[2020-02-15] MEDS: BENZONATATE 100 MG CAP PO PRN (12:30)
--- NOTE | 2020-02-15 16:16 | P.PN ---
Subjective Date of Service: 02/15/20 Primary Care Provider: Humberto Wells MD Chief Complaint: respiratory failure from adan virus Subjective: Other (Patient remains stable on BiPAP. 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 Patient still desats when eating or going to the bedside commode.) Physical Examination - Vital Signs Temperature: 97 F Blood Pressure: 136/81 Pulse: 95 Respirations: 23 Pulse Ox (%): 91 - Physical Exam General: Alert, Cooperative HEENT: Atraumatic Neck: Supple, Other (Subcutaneous emphysema to the chest area) Respiratory: Clear to auscultation bilaterally Cardiovascular: Normal pulses, Regular rate/rhythm Gastrointestinal: Normal bowel sounds, No masses, No rebound, No guarding Neurological: Normal speech, Normal strength at 5/5 x4 extr, Normal tone, Normal affect - Studies Medications List Reviewed: Yes Assessment & Plan Discharge Plan: Home Plan to discharge in: Greater than 2 days Physician Review Additional Text: Impression: Acute respiratory failure with hypoxia secondary to Covid pneumonia Subcutaneous emphysema Essential hypertension Hyperlipidemia Chronic renal disease stage III Elevated liver function Plan: Acute respiratory failure with hypoxia secondary to Covid pneumonia: Still no change in status. Patient on BiPAP at 95% Fi02. Case discussed at length with patient, and pulmonology. Will continue to monitor closely. If the patient continues to decline then will consider intubation. No intubation at this time. Medications reviewed. Today is the last day of Remdesvir. Patient on full-dose anti coagulation therapy. Pulmonology has adjusted other medication. Continue to monitor closely. Hopefully improvement over the next 24-48 hr. Subcutaneous emphysema: Will monitor closely. Continue with above Essential hypertension: Continue to monitor blood pressure. Continue bisoprol ol hydrochlorothiazide. Blood pressure has remained stable today. Hyperlipidemia: Medication has been discontinued Chronic renal disease stage III: Will continue monitor closely. Patient on diuretic therapy due to COVID. Elevated liver function: Discontinue statin medication. Time Spent Managing Pts Care (In Minutes): 55
[2020-02-15] MEDS ORDERED: RSI MEDICATION KIT IV ONE (19:12)
[2020-02-15] MEDS ORDERED: propofoL 1,000 MG/100 ML VIAL IV ONE ×2 (20:16→21:57)
[2020-02-15] MEDS ORDERED: LORazepam 2 MG/ML VIAL ONE ×2 (20:51→21:22)
--- NOTE | 2020-02-15 21:12 | RAD REPORT ---
EXAM DESCRIPTION: RAD - Chest Single View - 02/15/2020 8:56 pm CLINICAL HISTORY: S/P Intubation COMPARISON: February 14 TECHNIQUE: AP portable chest image was obtained 02/15/2020 8:56 pm . FINDINGS: Endotracheal tube has been placed. Tip is top of the aortic arch T4-5 level. NG tube is in place extending below the diaphragm. Lung volumes remain low. Bilateral airspace opacification present. Pattern is consistent with known C OVID-19 pneumonia. Heart size is normal range. Pulmonary vasculature is prominent. No measurable pleu ral effusion and no pneumothorax. No acute bony abnormality seen. No acute aortic finding. Extensive subcutaneous emphysema again identified. Findings appear slightly worse than examination earlier in . IMPRESSION: Endotracheal tube and NG tube in good position. Bilateral lung field COVID-19 pneumonia pattern is seen. Slight worsening of the subcutaneous emphysema.
[2020-02-15] MEDS ORDERED: FENTANYL CITR 100 MCG/2 ML ONE (21:23)
[2020-02-15] MEDS ORDERED: MIDAZOLAM HCL 2 MG/2 ML INJ ONE (21:58)
[2020-02-15] MEDS ORDERED: HALOPERIDOL LACT 5 MG/ML INJ IV PRN (23:07)
[2020-02-15] MEDS ORDERED: NA CHLORIDE 0.9% 250 ML IV PRN (23:07)
[2020-02-16 00:22] LABS: Arterial Blood Carboxyhemoglob 0.9 % (0-1.5); Blood Gas Oxyhemoglobin 90.1 % (94-97); Blood O2 Saturation 91.8 % (92-98.5)
[2020-02-16] MEDS: dexAMETHasone 4 MG/ML VIAL IV SCH ×3 (00:53→16:22)
[2020-02-16] MEDS: propofoL 1,000 MG/100 ML VIAL IV PRN ×6 (01:32→23:57)
[2020-02-16 05:45] LABS: Albumin 2.1 g/dL (3.4-5.0); Bilirubin Total 0.9 mg/dL (0.2-1.0); Potassium 4.3 mmol/L (3.5-5.1); Protein, Total 6.8 g/dL (6.4-8.2)
[2020-02-16 06:07] LABS: Absolute Lymphocytes (CBC) 0.4 K/uL (0.7-4.9); Basophils % 0.1 % (0-1.3); Hematocrit 43.9 % (39.6-49.0); Lymphocytes % 1.6 % (15.3-44.8); MPV 8.4 fL (7.6-11.3)
[2020-02-16] MEDS ORDERED: CEFEPIME 1 GM/VIAL IV SCH (09:00)
[2020-02-16 09:35] LABS: Blood Morphology Comment NOT SEEN (NOT SEEN); Platelet Estimate ADEQ; Urine White Blood Cell Casts OK
[2020-02-16] MEDS: Enoxaparin 120 MG/0.8 ML SYR SQ SCH ×2 (09:38→19:54)
[2020-02-16] MEDS: levoFLOXacin 500 MG TAB PO SCH (09:39)
[2020-02-16] MEDS: FAMOTIDINE 20 MG/2 ML VIAL IV SCH ×2 (09:39→19:55)
[2020-02-16] MEDS: THIAMINE 200 MG/2 ML INJ IVP SCH (09:39)
[2020-02-16] MEDS: FUROSEMIDE 40 MG/4 ML VIAL IV SCH (09:39)
[2020-02-16] MEDS: ASCORBIC ACID 500 MG TABLET PO SCH (09:40)
[2020-02-16] MEDS: ZINC SULFATE 220 MG CAP PO SCH ×2 (09:40→19:55)
--- NOTE | 2020-02-16 10:06 | P.PN ---
Subjective Date of Service: 02/16/20 Primary Care Provider: Humberto Wells MD Chief Complaint: respiratory failure from adan virus Patient's condition worsened he had to be intubated was a difficult intubation currently he is on a propofol drip Review of Systems is unable to be obtained Physical Examination - Vital Signs Temperature: 98.3 F Blood Pressure: 134/99 Pulse: 112 Respirations: 40 Pulse Ox (%): 93 - Physical Exam General: Other (Deferred) Other Physical/Emotional Findings: I did not go physically in his room today. I was able to visualize and speak to him through the window. He seemed okay. He did not appear in any distress. Patient on BiPAP. Patient using less Fi02. Patient reports he is feeling better. - Studies Medications List Reviewed: Yes Assessment & Plan - Problems (Diagnosis) (1) Pneumonia due to human coronavirus Current Visit: Yes Status: Acute Plan: Patient has ARDS from coronal wire he was intubated last night on 80% oxygen currently stable assist-control ventilator kidney function is slightly worse fold often diuretic patient has some subcutaneous emphysema prognosis is poor I have added cefepime is at risk for hospital-acquired infection patient's white count is elevated start tube feeds
[2020-02-16] MEDS: CEFEPIME/SWI 1gm 10 ML IVP SCH ×2 (10:15→19:54)
--- NOTE | 2020-02-16 11:23 | P.PN ---
Subjective Date of Service: 02/16/20 Primary Care Provider: Humberto Wells MD Chief Complaint: respiratory failure from adan virus Subjective: Other (Patient required intubation yesterday. Intubation was difficult. Patient now stable.) Physical Examination - Vital Signs Temperature: 98.3 F Blood Pressure: 134/99 Pulse: 112 Respirations: 40 Pulse Ox (%): 93 - Physical Exam General: Other (Patient intubated and sedated.) Respiratory: Clear to auscultation bilaterally Cardiovascular: Abnormal pulses (Sinus tachycardia around 112) Neurological: Other (Patient sedated) - Studies Medications List Reviewed: Yes Assessment & Plan Discharge Plan: Home Plan to discharge in: Greater than 2 days Physician Review Additional Text: Impression: Acute respiratory failure with hypoxia secondary to Covid pneumonia Subcutaneous emphysema Essential hypertension Hyperlipidemia Chronic renal disease stage III Elevated liver function Plan: Acute respiratory failure with hypoxia secondary to Covid pneumonia: Patient required intubation yesterday. He was very difficult. Patient now sedated on ventilator. Case discussed with pulmonology. IV antibiotic therapy adjusted, now on IV cefepime. Continue to wean off ventilator. Medications reviewed. Continue with pulmonology recommendations. Will start tube feeds. Will discuss with . Subcutaneous emphysema: Will monitor closely. Continue with above Essential hypertension: Will provide medication for blood pressure as needed Hyperlipidemia: Medication has been discontinued Chronic renal disease stage III: Will continue monitor closely. Pulmonology continues with IV Lasix Elevated liver function: Patient off medication. Time Spent Managing Pts Care (In Minutes): 55
[2020-02-16] MEDS: VITAL AF 1,000 ML BOT RTH SCH (12:30)
[2020-02-17] MEDS: dexAMETHasone 4 MG/ML VIAL IV SCH ×3 (00:27→22:28)
[2020-02-17] MEDS: propofoL 1,000 MG/100 ML VIAL IV PRN ×6 (03:44→23:31)
[2020-02-17] MEDS: MIDAZOLAM HCL 2 MG/2 ML INJ IV PRN (03:44)
[2020-02-17 08:40] LABS: Absolute Lymphocytes (CBC) 0.4 K/uL (0.7-4.9); Basophils % 0.2 % (0-1.3); Hematocrit 43.4 % (39.6-49.0); Lymphocytes % 1.8 % (15.3-44.8); MPV 8.3 fL (7.6-11.3); RBC Red Blood Cell Count 4.93 M/uL (4.33-5.43)
[2020-02-17 08:44] LABS: Albumin 1.9 g/dL (3.4-5.0); Bilirubin Total 0.6 mg/dL (0.2-1.0); Potassium 4.2 mmol/L (3.5-5.1)
[2020-02-17] MEDS: CEFEPIME/SWI 1gm 10 ML IVP SCH ×2 (09:24→22:29)
[2020-02-17] MEDS: VANCOMYCIN 2 GM in NA CHLORIDE 0.9% 500 ML IVPB SCH (09:24)
[2020-02-17] MEDS: FLUCONAZOLE 400 MG IVPB 400 MG/200 ML BAG IV SCH (09:24)
[2020-02-17] MEDS: ZINC SULFATE 220 MG CAP PO SCH ×2 (09:25→22:28)
[2020-02-17] MEDS: ASCORBIC ACID 500 MG TABLET PO SCH (09:25)
[2020-02-17] MEDS: THIAMINE 200 MG/2 ML INJ IVP SCH (09:25)
[2020-02-17] MEDS: FAMOTIDINE 20 MG/2 ML VIAL IV SCH ×2 (09:25→22:28)
[2020-02-17] MEDS: Enoxaparin 120 MG/0.8 ML SYR SQ SCH ×2 (09:26→22:29)
--- NOTE | 2020-02-17 09:42 | RAD REPORT ---
EXAM DESCRIPTION: RAD - Chest Single View - 02/15/2020 10:59 pm CLINICAL HISTORY: S/P PICC insertion COMPARISON: None. TECHNIQUE: AP Chest. FINDINGS: Cardiac size is minimally enlarged. There is bilateral lower lobe airspace consolidation. Small pleural effusions are present bilaterally. No pneumothorax. There is diffuse chest wall subcutaneous emphysema. Endotracheal tube is at the thoracic inlet. Feedi ng tube extends into the left upper abdomen. Right subclavian PICC line terminates at the cavoatrial junction. Moderate thoracic spondylosis. IMPRESSION: 1. Right subclavian PICC line placed without complication. 2. Bilateral lower lobe consolidation with small pleural effusions. 3. Diffuse subcutaneous emphysema. Electronically signed by: Nida Vu DO 02/16/2020 2:49 AM CDT Due to temporary technical issues with the PACS/Fluency reporting system, reports are being signed by the in house radiologist without review as a courtesy to ensure prompt reporting. The interpreting r adiologist is fully responsible for the content of the report.
[2020-02-17 10:13] LABS: Blood Morphology Comment NOT SEEN (NOT SEEN); Platelet Estimate ADEQ; Toxic Granulation 1+; Urine White Blood Cell Casts OK
[2020-02-17] MEDS: FENTANYL CITR 100 MCG/2 ML IV PRN ×3 (10:54→23:32)
--- NOTE | 2020-02-17 10:56 | P.PN ---
Subjective Date of Service: 02/17/20 Primary Care Provider: Humberto Wells MD Chief Complaint: respiratory failure from adan virus No change in patient's condition is still on high concentrations of oxygen Review of Systems is unable to be obtained Physical Examination - Vital Signs Temperature: 97.8 F Blood Pressure: 118/67 Pulse: 97 Respirations: 26 Pulse Ox (%): 93 - Physical Exam General: Other (Deferred) Other Physical/Emotional Findings: I did not go physically in his room today. I was able to visualize and speak to him through the window. He seemed okay. He did not appear in any distress. Patient on BiPAP. Patient using less Fi02. Patient reports he is feeling better. - Studies Medications List Reviewed: Yes Assessment & Plan - Problems (Diagnosis) (1) Pneumonia due to human coronavirus Current Visit: Yes Status: Acute Plan: Patient has ARDS due to adan virus he is on maximal oxygen assist-control ventilation not stable to be transferred for ECMO be an is a little elevated hold Lasix white count is also elevated he is at risk for hospital-acquired infections agree with adding vancomycin culture blood and urine labs reviewed consider NG read tube water flushes ovoid IV fluids agree with IV Diflucan he is at risk for optimistic fungal infections
[2020-02-17] MEDS: ACETYLCYST 20% 800 MG/4 ML VIAL PO SCH ×2 (13:19→22:29)
[2020-02-17 16:54] LABS: Urine Appearance TURBID; Urine Blood 3+ (NEG); Urine Color RED; Urine Glucose NEGATIVE (NEG); Urine Protein 2+ (NEG); Urine Specific Gravity 1.025 (1.005-1.030)
[2020-02-17 17:03] LABS: Urine Bilirubin 3+ (NEG); Urine Microscopic Reflex ORDER UMIC
[2020-02-17 17:04] LABS: Urine Bacteria 20-50 /HPF (NONE SEEN); Urine Culture Reflex Order NOT NEEDED; Urine Mucus 1+ /HPF (NONE SEEN); Urine RBC TNTC /HPF (NONE SEEN)
--- NOTE | 2020-02-17 18:34 | P.PN ---
Subjective Date of Service: 02/17/20 Primary Care Provider: Humberto Wells MD Chief Complaint: respiratory failure from adan virus Subjective: Other (No significant change. Still requiring max ventilation) Physical Examination - Vital Signs Temperature: 98.9 F Blood Pressure: 103/72 Pulse: 99 Respirations: 23 Pulse Ox (%): 94 - Physical Exam General: Other (Patient intubated) Respiratory: Clear to auscultation bilaterally Cardiovascular: Normal pulses, Regular rate/rhythm Gastrointestinal: Normal bowel sounds Neurological: Normal speech, Normal strength at 5/5 x4 extr, Normal tone, Normal affect - Studies Medications List Reviewed: Yes Assessment & Plan Discharge Plan: Transfer Plan to discharge in: 24 Hours Physician Review Additional Text: Impression: Acute respiratory failure with hypoxia secondary to Covid pneumonia Subcutaneous emphysema Essential hypertension Hyperlipidemia Chronic renal disease stage III Elevated liver function Plan: Acute respiratory failure with hypoxia secondary to Covid pneumonia: Spoke with pulmonology. Patient likely requires ECMO. Will pursue transfer for ECMO as the patient requires max settings on ventilation. Case discussed with is well. Subcutaneous emphysema: Will monitor closely. Continue with above Essential hypertension: Will provide medication for blood pressure as needed Hyperlipidemia: Medication has been discontinued Chronic renal disease stage III: Will continue monitor closely. Hold Lasix. Will consult nephrology for further recommendation. Elevated liver function: Patient off medication. Time Spent Managing Pts Care (In Minutes): 55
[2020-02-17] MEDS: VITAL AF 1,000 ML BOT RTH SCH (20:11)
--- NOTE | 2020-02-17 23:28 | CON ---
Date of Consultation: 02/17/2020 Chief Complaint: Acute kidney injury. History Of Present Illness: The patient is in ICU. He has respiratory failure. He remains intubate d. He has Coronavirus pneumonia with severe respiratory failure. He has acute on chronic kidney inj ury. Urine output remains nonoliguric. Electrolytes in stable range. Patient primarily came to the hospital on February 08 and he was seen by Pulmonary Service. He is 59-year-old man with history of hy pertension, hyperlipidemia, admitted with COVID viral infection with hypoxemia. He was started on by pass and recently he required intubation. He is on high FiO2 concentration, oxygen up to 90% and he is to be transferred to higher level of care for ECMO. Review of Systems: Unobtainable because of patient's condition and patient remains intubated in ICU. Home Medications: Candesartan, hydrochlorothiazide, Zetia, rosuvastatin, bisoprolol. Past Medical History: Hypertension, hyperlipidemia, nasal septal surgery, renal hernia repair, back surgery, cholecystectomy. Social History: No history of tobacco, alcohol, or illicit drug. Laboratory Data: WBC 20.4, hemoglobin 14.4, platelet count 347,000, neutrophils 96.4, lymphocytes 1. 8. Sodium 140, potassium 4.2, chloride 104, CO2 29, BUN 70, creatinine 1.63, glucose 288, calcium 7. 9, AST 40, ALT 99, magnesium 2.9, phosphorus is pending. BUN on arrival to the hospital was 25, over 48 hours increased gradually from 36 to 70 and creatinine is ranging from 1.17 to 1.63 and creatinine improved from 1.78 to 1.63 yesterday. Chest x-ray was done on February 14 showed bilateral lower lobe consolidation with small pleural effusion , diffuse subcutaneous emphysema. Endotracheal tube is in the thoracic inlet. Feeding tube has exte nt into the left upper abdomen. Right subclavian PICC line terminates in the cavoatrial junction. C ardiac size is minimal large. There is bilateral lower lobe airspace consolidation, small pleural ef fusion is present bilaterally. No pneumothorax. Physical Examination: Deferred to hospitalist, patient has COVID infection. Impression And Plan: Acute on chronic kidney injury. Patient has likely nonoliguric acute tubular n ecrosis. Electrolytes are stable. Creatinine level is improving since yesterday and BUN is elevated due to hypercarbic state and prerenal azotemia. Patient although is on steroids, which is also cont ributory to high BUN level. Plan is to monitor electrolytes and evaluate the blood work tomorrow. P atient may need dialysis if urine output is declining, there is indication related to electrolyte abn ormalities and worsening of the azotemia. At this point, plan is to use diuretic and monitor urine o utput. Patient is intubated and is under care of Pulmonary Service on treatment per protocol for coronavirus disease pneumonia. EB/MODL Voice ID: [id number] Report ID: [id number]
[2020-02-18] MEDS: propofoL 1,000 MG/100 ML VIAL IV PRN ×5 (03:25→23:03)
[2020-02-18] MEDS: FENTANYL CITR 100 MCG/2 ML IV PRN ×2 (05:17→09:48)
[2020-02-18] MEDS: THIAMINE 200 MG/2 ML INJ IVP SCH (08:24)
[2020-02-18] MEDS: dexAMETHasone 4 MG/ML VIAL IV SCH ×2 (08:24→21:11)
[2020-02-18] MEDS: ZINC SULFATE 220 MG CAP PO SCH ×2 (08:25→21:13)
[2020-02-18] MEDS: ASCORBIC ACID 500 MG TABLET PO SCH (08:25)
[2020-02-18] MEDS: VANCOMYCIN 2 GM in NA CHLORIDE 0.9% 500 ML IVPB SCH (08:25)
[2020-02-18] MEDS: FAMOTIDINE 20 MG/2 ML VIAL IV SCH ×2 (08:25→21:13)
[2020-02-18] MEDS: CEFEPIME/SWI 1gm 10 ML IVP SCH ×2 (08:26→21:12)
--- NOTE | 2020-02-18 08:31 | RAD REPORT ---
EXAM DESCRIPTION: RAD - Chest Single View - 02/18/2020 5:54 am CLINICAL HISTORY: Patient on a ventilator Chest pain. COMPARISON: Chest Single View dated 02/15/2020; Chest Single View dated 02/15/2020; Chest Single View dated 02/15/2020; Chest Single View dated 02/11/2020 FINDINGS: Portable technique limits examination quality. Tip of the ET tube is above the jonel. Right-sided PICC line has its tip in the SVC, unchanged. Bila teral interstitial pulmonary opacities again noted. Significant subcutaneous emphysema is again seen. The heart is moderately enlarged.
[2020-02-18] MEDS: Enoxaparin 120 MG/0.8 ML SYR SQ SCH ×2 (09:48→21:11)
[2020-02-18] MEDS: ACETYLCYST 20% 800 MG/4 ML VIAL PO SCH ×2 (09:48→21:12)
[2020-02-18] MEDS: FLUCONAZOLE 400 MG IVPB 400 MG/200 ML BAG IV SCH (09:49)
[2020-02-18] MEDS: FUROSEMIDE 40 MG/4 ML VIAL IV SCH (09:49)
[2020-02-18 11:26] LABS: Arterial Blood Carboxyhemoglob 0.8 % (0-1.5); Blood Gas Oxyhemoglobin 83.9 % (94-97); Blood O2 Saturation 85.5 % (92-98.5)
--- NOTE | 2020-02-18 12:01 | P.PN ---
Subjective Date of Service: 02/18/20 Primary Care Provider: Humberto Wells MD Chief Complaint: respiratory failure from adan virus No change patient stable his oxygen requirement at 85-90% Review of Systems is unable to be obtained Physical Examination - Vital Signs Temperature: 97.0 F Blood Pressure: 147/81 Pulse: 78 Respirations: 19 Pulse Ox (%): 93 - Physical Exam General: Unresponsive Other Physical/Emotional Findings: I did not go physically in his room today. I was able to visualize and speak to him through the window. He seemed okay. He did not appear in any distress. Patient on BiPAP. Patient using less Fi02. Patient reports he is feeling better. - Studies Medications List Reviewed: Yes Assessment & Plan - Problems (Diagnosis) (1) Pneumonia due to human coronavirus Current Visit: Yes Status: Acute Plan: Patient's condition is stable his stay requiring 80 Monday 90% FiO2 blood gases were PO2 of 52 tolerating tube feeds with also started Mucomyst fully anti inflammatory effect patient may benefit from ECMO no labs done today cultures ne gative patient is on multiple antibiotic I risk for sepsis including Diflucan so far is clinic and condition has not worsened they have been stabilized are improving
[2020-02-18] MEDS ORDERED: ETOMIDATE 20 MG/10 ML VIAL IV ONE (16:45)
[2020-02-18] MEDS ORDERED: SUCCINYLCHOLINE 20 MG/ML (10 ML) IV ONE (16:45)
[2020-02-18 17:15] LABS: Urine Protein/Creatinine Ratio 1.6 ratio (<0.15)
--- NOTE | 2020-02-18 18:13 | P.PN ---
Subjective Date of Service: 02/18/20 Primary Care Provider: Humberto Wells MD Chief Complaint: respiratory failure from adan virus Subjective: Other (No changes. Still requiring high FiO2 on ventilator.) Physical Examination - Vital Signs Temperature: 97.0 F Blood Pressure: 117/74 Pulse: 100 Respirations: 23 Pulse Ox (%): 93 - Physical Exam General: Other (Patient intubated) Respiratory: Clear to auscultation bilaterally Cardiovascular: Normal pulses - Studies Medications List Reviewed: Yes Assessment & Plan Discharge Plan: Transfer Plan to discharge in: Greater than 2 days Physician Review Additional Text: Impression: Acute respiratory failure with hypoxia secondary to Covid pneumonia Subcutaneous emphysema Essential hypertension Hyperlipidemia Chronic renal disease stage III Elevated liver function Plan: Acute respiratory failure with hypoxia secondary to Covid pneumonia: Spoke with pulmonology. Continue to reach out to tertiary care centers for ECMO transfer. Patient denied at [facility], [facility], and [facility] due to ECMO diversion. Will continue transfer process. Subcutaneous emphysema: Will monitor closely. Continue with above Essential hypertension: Will provide medication for blood pressure as needed Hyperlipidemia: Medication has been discontinued Chronic renal disease stage III: Await recommendations by nephrology. Elevated liver function: Patient off medication. Time Spent Managing Pts Care (In Minutes): 55
--- NOTE | 2020-02-18 18:59 | PN ---
Subjective: The patient was admitted with COVID pneumonia. Patient developed respiratory failure. Patient was admitted back on 02/08/2020, was placed on BiPAP high-flow. Respiratory status has been deteriorated. Patient was started on treatment. Then, patient required intubation. Patient maintai irena on high FiO2 and high PEEP. Gradually, kidney function started to decline. For that reason, we have been consulted. Upon admission, creatinine was 1.7, trended down to 1.1 on 02/15/2020, then gra dually trended up yesterday and day before. Reviewing the record for the patient, the lowest blood p ressure had on 02/16/2020; blood pressure was down to the 90. Physical Examination: Vital Signs: When I saw the patient, blood pressure 147/81, pulse of 90. CHEST: Crackles bilateral. HEART: S1, S2. Systolic murmur. ABDOMEN: Soft, nontender. EXTREMITY: No edema. Laboratory Data: Sodium 140, potassium 4.2, bicarb 29, BUN 70, creatinine 1.6. GFR of 44, glucose 2 88, calcium 7.9, magnesium 2.9. Albumin 1.9. ABG; pH of 7.39, O2 of 52, CO2 of 44, saturation of 83 . Urinalysis; patient had hematuria on the lab done yesterday. Chest x-ray; subcutaneous emphysema and interstitial infiltration. Patient had good urine output of 1525 in the last 24 hours. Current Medications: Current medications the patient is on include: 1.Cefepime. 2.Fluconazole. 3.Vancomycin. 4.Sedation. 5.Lasix 40 daily. 6.Pepcid. 7.Tramadol. 8.Vitamin C. 9.Thiamine. Assessment And Plan: 1.Acute kidney injury secondary to poor perfusion acute tubular necrosis secondary to low blood pres sure, superimposed with prerenal secondary to toxic acute tubular necrosis secondary to sepsis. Give n the presence of COVID pneumonia, we will accept decline in the kidney function currently in favor o f establishing more dry status for the patient to achieve better ventilation. 2.Given the presence of the hematuria, I am going to repeat the urinalysis to evaluate and we will s end for full serology to rule out any pulmonary, renal. 3.Hypertension with the presence of septic shock. Hold all blood pressure medications. I am going to keep only the Lasix for the time being to establish better volume control. 4.Hematuria, mostly traumatic. To rule out any questionable vasculitis, pulmonary, renal. We will send for serology. We will repeat UA. 5.Respiratory failure, secondary to COVID pneumonia. Follow up with Pulmonary. Continue current ve nt support. Follow up with the hospitalist. JUAN Voice ID: [id number] Report ID: [id number]
--- NOTE | 2020-02-18 19:58 | RAD REPORT ---
EXAM DESCRIPTION: US - Renal Ultrasound-Complete - 02/18/2020 7:45 pm CLINICAL HISTORY: . Acute renal insufficiency COMPARISON: None. FINDINGS: The right kidney measures 10 cm with a normal echotexture. The left kidney measures 10 cm with a normal echotexture. Hydronephrosis is not seen. A Mon catheter is present within decompressed bladder IMPRESSION: Unremarkable renal ultrasound.
[2020-02-18] MEDS: MIDAZOLAM HCL 2 MG/2 ML INJ IV PRN (21:13)
[2020-02-18] MEDS: VITAL AF 1,000 ML BOT RTH SCH (21:13)
[2020-02-19] MEDS: propofoL 1,000 MG/100 ML VIAL IV PRN ×5 (02:52→15:46)
[2020-02-19 06:13] LABS: Albumin 1.9 g/dL (3.4-5.0); Phosphorus 3.7 mg/dL (2.5-4.9); Thyroid Stimulating Hormone 0.224 uIU/mL (0.360-3.740)
--- NOTE | 2020-02-19 08:01 | P.PN ---
Subjective Date of Service: 02/25/20 Primary Care Provider: Humberto Wells MD Chief Complaint: respiratory failure from adan virus No significant change still requiring high concentrations of oxygen will tight to titrate his sats down today Review of Systems is unable to be obtained Physical Examination - Vital Signs Temperature: 99.1 F Blood Pressure: 119/73 Pulse: 97 Respirations: 21 Pulse Ox (%): 91 - Physical Exam Other Physical/Emotional Findings: I did not go physically in his room today. I was able to visualize and speak to him through the window. He seemed okay. He did not appear in any distress. Patient on BiPAP. Patient using less Fi02. Brandon moreira reports he is feeling better. - Studies Medications List Reviewed: Yes Assessment & Plan - Problems (Diagnosis) (1) Pneumonia due to human coronavirus Current Visit: Yes Status: Acute Plan: Will recheck CBC today can Dc vancomycin change to p.o. doxycycline and p.o. Diflucan high risk for fungal infection (2) Respiratory failure Current Visit: Yes Status: Acute Plan: Patient has respiratory failure from ARDS secondary to adan virus continue to titrate sat to 90% repeat arterial blood gases patient is on Lasix renal f unction is improving start some NG tube f water feet vital signs are stable patient is on broad-spectrum antibiotic Qualifiers: Chronicity: acute Physician Review Additional Text: I
[2020-02-19] MEDS: dexAMETHasone 4 MG/ML VIAL IV SCH ×2 (08:30→20:15)
[2020-02-19] MEDS: ZINC SULFATE 220 MG CAP PO SCH ×2 (08:30→20:19)
[2020-02-19] MEDS: FUROSEMIDE 40 MG/4 ML VIAL IV SCH ×2 (08:30→20:15)
[2020-02-19] MEDS: ASCORBIC ACID 500 MG TABLET PO SCH (08:30)
[2020-02-19] MEDS: CEFEPIME/SWI 1gm 10 ML IVP SCH ×2 (08:30→20:15)
[2020-02-19] MEDS: FAMOTIDINE 20 MG/2 ML VIAL IV SCH ×2 (08:30→20:14)
[2020-02-19] MEDS: THIAMINE HCL 100 MG TABLET PO SCH (08:34)
[2020-02-19] MEDS: FLUCONAZOLE 100 MG TAB PO SCH (08:34)
[2020-02-19] MEDS: APIXABAN 5 MG TABLET PO SCH ×2 (08:34→20:17)
[2020-02-19 09:02] LABS: Arterial Blood Carboxyhemoglob 0.8 % (0-1.5); Blood Gas Oxyhemoglobin 88.7 % (94-97); Blood O2 Saturation 90.4 % (92-98.5)
[2020-02-19] MEDS: DOXYCYCLINE 100 MG CAP PO SCH ×2 (09:08→20:16)
[2020-02-19 10:18] LABS: Absolute Lymphocytes (CBC) 0.4 K/uL (0.7-4.9); Basophils % 0.6 % (0-1.3); Hematocrit 42.4 % (39.6-49.0); Lymphocytes % 1.6 % (15.3-44.8); MPV 8.8 fL (7.6-11.3); RBC Red Blood Cell Count 4.74 M/uL (4.33-5.43)
[2020-02-19 10:46] LABS: Blood Morphology Comment NOT SEEN (NOT SEEN); Platelet Estimate ADEQ
--- NOTE | 2020-02-19 10:57 | PN ---
Date of Progress Note: 02/19/2020 Subjective: The patient was admitted with COVID pneumonia. The patient developed respiratory failure, had to be intubated after he failed on high-flow BiPAP complicated with subcutaneous emphysema. Over the night, FiO2 has been dropped to below 80, still on high PEEP. The patient has been on diuresis to maintain good urine output and to maintain a dry status for the patient. Objective: Vital Signs: The patient's blood pressure 119/73, pulse of 97, afebrile. The patient had good urine output of 2400. General: The patient is in positive balance in the last 24 hours. Chest: Crackles bilateral. Heart: S1, S2. Systolic murmur. Abdomen: Soft, nontender. Extremities: No edema. Laboratory Data: WBC 20.4, H and H 14.4/43.4, platelets 347. Sodium 144, potassium 5, bicarb 30, chloride 108, BUN 57 trending down, creatinine 1.4 trending down, GFR up to 51, uric acid of 3, calcium 7.8, phosphorus 3.7. Serum protein electrophoresis is still pending. PTH of 170. TSH 0.2. Albumin 1.9. Corrected calcium is 9.4. ABG; pH 7.4, CO2 43, O2 61, saturation of 88. Current Medications: The patient on include cefepime, doxycycline, fluconazole, Eliquis 5 mg b.i.d., Tylenol, Lasix 40 daily, zinc sulfate, dexamethasone 2 mg b.i.d., Pepcid, Zofran, sedation, tramadol, vitamin C, and thiamine. Assessment And Plan: 1. Acute kidney injury secondary to COVID pneumonia, toxic ATN, slightly on the wet side, normal size kidney, proteinuric, nonnephrotic, with hematuria. Serology still pending for pulmonary, renal. Rhabdomyolysis has been ruled out and obstruction has to be ruled out given the low uric acid. The patient is still on the over volume side. I am going to go ahead and increase his Lasix to 40 mg b.i.d. to maintain the patient on negative balance. Hopefully that will help in his respiratory status. 2. Marginal hypernatremia. Free water has been increased. We will follow up. 3. Hyperkalemia, resolved. Increase Lasix. 4. Questionable pulmonary, renal follow up serology. Continue vent support. 5. COVID pneumonia. Continue current antibiotic. We will continue vent support. We will follow up with Pulmonary. 6. Secondary SHPT, corrected calcium within normal limit. Phosphorus within normal limit. I do not see the need for any binder or vitamin D for the time being. JUAN Voice ID: [id number] Report ID: [id number]
[2020-02-19] MEDS: FENTANYL CITR 100 MCG/2 ML IV PRN ×2 (12:12→20:30)
[2020-02-19 12:53] LABS: Urine Appearance TURBID; Urine Color RED
[2020-02-19 12:54] LABS: Urine Bilirubin NEGATIVE (NEG); Urine Blood 4+ (NEG); Urine Glucose NEGATIVE (NEG); Urine Microscopic Reflex ORDER UMIC; Urine Protein 3+ (NEG); Urine Specific Gravity >1.030 (1.005-1.030); Urine Urobilinogen 0.2 mg/dL (0.2-1.0)
[2020-02-19 12:55] LABS: Urine Bacteria 20-50 /HPF (NONE SEEN); Urine Culture Reflex Order REFLEXED; Urine RBC TNTC /HPF (NONE SEEN)
[2020-02-19] MEDS ORDERED: GLUCAGON 1 MG/VIAL IM PRN (13:31)
[2020-02-19] MEDS ORDERED: D50W 25 GM/50 ML SYRINGE/VIAL IV PRN (13:31)
--- NOTE | 2020-02-19 13:49 | P.PN ---
Subjective Date of Service: 02/19/20 Primary Care Provider: Humberto Wells MD Chief Complaint: respiratory failure from adan virus Subjective: Other (remains on ventilator) Physical Examination - Vital Signs Temperature: 99.1 F Blood Pressure: 127/83 Pulse: 103 Respirations: 23 Pulse Ox (%): 87 - Physical Exam General: Other (Patient remains intubated and sedated pre) Respiratory: Clear to auscultation bilaterally Cardiovascular: Normal pulses Neurological: Other (Patient main stable.) Other Physical/Emotional Findings: I did not go physically in his room today. I was able to visualize and speak to him through the window. He seemed okay. He did not appear in any distress. Patient on BiPAP. Patient using less Fi02. Patient reports he is feeling better. - Studies Medications List Reviewed: Yes Assessment & Plan Discharge Plan: Transfer Plan to discharge in: Greater than 2 days Physician Review Additional Text: Impression: Acute respiratory failure with hypoxia secondary to Covid pneumonia Subcutaneous emphysema Essential hypertension Hyperlipidemia Chronic renal disease stage III Elevated liver function Plan: Acute respiratory failure with hypoxia secondary to Covid pneumonia: Patient remains stable. Still intubated and slightly sedated. Patient requiring around 80-85 Fio2 on ventilator. Patient denied by [facility], [facility], [facility] and [facility] due to ECMO diversion. Will continue to reach out to [facility] for bed availability for ECMO. Case discussed with pulmonology. Antibiotics adjusted by Pulmonary. Await urine and blood culture results. Patient being covered for bacterial and fungal infection. Patient on Eliquis as well. Case also discuss with BEHAVIORAL HEALTH THERAPIST of Transfer at [facility]. Subcutaneous emphysema: Will monitor closely. Continue with above Essential hypertension: Will provide medication for blood pressure as needed Hyperlipidemia: Medication has been discontinued Acute on Chronic renal disease stage III: Continue with Nephrology recommendations. Lasix slightly increased. Elevated liver function: Patient off medication. Time Spent Managing Pts Care (In Minutes): 55
[2020-02-19] MEDS: INSULIN -REGULAR HUMAN 50 UNIT/0.5 ML ML SQ SCH (17:21)
[2020-02-19] MEDS: LORazepam 2 MG/ML VIAL IV PRN (17:28)
[2020-02-19 19:47] LABS: Rheumatoid Factor NEG (NEG)
[2020-02-20] MEDS: INSULIN -REGULAR HUMAN 50 UNIT/0.5 ML ML SQ SCH ×5 (00:05→23:57)
[2020-02-20] MEDS: LORazepam 2 MG/ML VIAL IV PRN ×5 (00:07→17:52)
[2020-02-20] MEDS: propofoL 1,000 MG/100 ML VIAL IV PRN ×6 (02:34→23:20)
[2020-02-20] MEDS: VITAL AF 1,000 ML BOT RTH SCH (04:00)
[2020-02-20] MEDS: FENTANYL CITR 100 MCG/2 ML IV PRN ×2 (05:30→12:17)
[2020-02-20 06:03] LABS: Blood Gas Oxyhemoglobin 88.9 % (94-97); Blood O2 Saturation 90.7 % (92-98.5)
[2020-02-20 06:59] LABS: Absolute Lymphocytes (CBC) 0.4 K/uL (0.7-4.9); Basophils % 0.1 % (0-1.3); Hematocrit 40.6 % (39.6-49.0); Lymphocytes % 2.2 % (15.3-44.8); MPV 8.3 fL (7.6-11.3)
[2020-02-20 07:05] LABS: Albumin 1.8 g/dL (3.4-5.0); Phosphorus 3.6 mg/dL (2.5-4.9); Potassium 5.3 mmol/L (3.5-5.1)
[2020-02-20] MEDS: MIDAZOLAM HCL 2 MG/2 ML INJ IV PRN (09:26)
[2020-02-20] MEDS: FLUCONAZOLE 100 MG TAB PO SCH (09:30)
[2020-02-20] MEDS: dexAMETHasone 4 MG/ML VIAL IV SCH ×2 (09:30→19:54)
[2020-02-20] MEDS: FUROSEMIDE 40 MG/4 ML VIAL IV SCH ×2 (09:30→19:55)
[2020-02-20] MEDS: DOXYCYCLINE 100 MG CAP PO SCH ×2 (09:31→19:55)
[2020-02-20] MEDS: FAMOTIDINE 20 MG/2 ML VIAL IV SCH ×2 (09:31→19:55)
[2020-02-20] MEDS: ASCORBIC ACID 500 MG TABLET PO SCH (09:31)
[2020-02-20] MEDS: APIXABAN 5 MG TABLET PO SCH ×2 (09:31→19:55)
[2020-02-20] MEDS: THIAMINE HCL 100 MG TABLET PO SCH (09:32)
[2020-02-20] MEDS: ZINC SULFATE 220 MG CAP PO SCH ×2 (09:32→19:55)
[2020-02-20] MEDS: CEFEPIME/SWI 1gm 10 ML IVP SCH ×2 (09:33→19:56)
--- NOTE | 2020-02-20 10:38 | RAD REPORT ---
EXAM DESCRIPTION: RAD - Chest Single View - 02/20/2020 10:17 am CLINICAL HISTORY: Resp. Distress COMPARISON: February 17, February 14 TECHNIQUE: AP portable chest image was obtained 02/20/2020 10:17 am . FINDINGS: Endotracheal tube remains in place. NG tube is in place extending below the diaphragm, off the field of view. Right-side PICC line is in place. Subcutaneous emphysema changes are present in the chest and neck. Pattern is not clearly different fr om comparison. Patchy airspace opacification is scattered in the lung spencer. No significant change from the prior s tudies. Progressive lung parenchymal process is not suspected. Heart size is prominent but stable. Vasculature is prominent and stable. No measurable pleural effus ion and no pneumothorax. No acute bony abnormality seen. No acute aortic findings suspected. IMPRESSION: Bilateral airspace opacification stable from February 17 imaging. Subcutaneous emphysema of the chest and neck present and without progression.
[2020-02-20] MEDS ORDERED: BUDESONIDE 0.5 MG/2 ML NEB ONE (13:59)
[2020-02-20] MEDS: BUDESONIDE 0.5 MG/2 ML NEB NEB SCH ×2 (14:00→19:50)
--- NOTE | 2020-02-20 15:15 | P.PN ---
Subjective Date of Service: 02/20/20 Primary Care Provider: Humberto Wells MD Chief Complaint: respiratory failure from adan virus Subjective: Other (Patient stable. Patient remains intubated) Physical Examination - Vital Signs Temperature: 99.1 F Blood Pressure: 124/82 Pulse: 115 Respirations: 20 Pulse Ox (%): 95 - Physical Exam General: Other (Patient intubated and sedated) Neck: Supple Respiratory: Clear to auscultation bilaterally Cardiovascular: Normal pulses Integumentary: No tenderness/swelling, No erythema, No warmth, No cyanosis Other Physical/Emotional Findings: Patient remains on BiPAP. - Studies Medications List Reviewed: Yes Assessment & Plan Discharge Plan: Transfer Plan to discharge in: Unknown Physician Review Additional Text: Impression: Acute respiratory distress syndrome secondary to Covid pneumonia Leukocytosis suspect underlying secondary bacterial versus fungal infection: Acute on chronic renal failure stage 3 with hypernatremia and hyperkalemia with ATN related to COVID Subcutaneous emphysema Diabetes mellitus type 2 Essential hypertension Hyperlipidemia Chronic renal disease stage III Elevated liver function Plan: Acute respiratory distress syndrome secondary to Covid pneumonia: Patient remains stable. During the course of his stay patient has received plasma and Remdesivir. ET tube was advanced as per pulmonology. This was attempted but patient desatted. ET tube replaced 2 prior setting. Patient recovered. Repeat x-ray shows better placement. Will discuss further with pulmonology to see if this will require further adjustment. Continue IV steroids. Pulmicort nebs added. Continue to wean off ventilator. Suspect underlying secondary bacterial/fungal infection. Awaiting cultures. Patient on IV antibiotic therapy/oral therapy and IV antifungal. Continue DVT prophylaxis. Patient previously denied by [facility], [facility], [facility] [place] [facility] and [facility]Y re-attempted today. still no bed availability. Will continue to reach out. Patient still requires improvement in vent settings to be transported if bed available. Will need to consider tracheostomy after 14 days with current ET tube. If still with current settings this would still be very difficult. Nephrology continues to adjust medication. Will discuss with pulmonology, ne phrology. Will discuss further with . I will transfer care to the next hospitalist tomorrow. I will go over the plan of care with him. Leukocytosis suspect underlying secondary bacterial versus fungal infection: Continue current antibiotic therapy and antifungal therapy. Await blood, sputum and urine culture results. Acute on chronic renal failure stage 3 with hypernatremia and hyperkalemia with ATN related to COVID: Nephrology continues to adjust input and output. Lasix increased. Subcutaneous emphysema: Will monitor closely. Continue with above Diabetes mellitus type 2: Will check A1c. Continue Accu-Cheks. Will start basal insulin Lantus 10 units b.i.d.. Will adjust accordingly. Essential hypertension: Will provide medication for blood pressure as needed Hyperlipidemia: Medication has been discontinued Elevated liver function: Patient off medication statin medication. Time Spent Managing Pts Care (In Minutes): 55
--- NOTE | 2020-02-20 15:43 | PN ---
Date of Progress Note: 02/20/2020 Subjective: The patient was admitted with COVID pneumonia, respiratory failure, developed subcutaneo us emphysema, developed ARDS and process of COVID pneumonia. The patient had acute injury. We start ed the patient on Lasix. The patient is still requiring high FiO2 today to adjust the E-tube. The p atient desaturated again. Physical Examination: Vital Signs: Blood pressure 108/76, pulse of 92. The patient had good urine output of 2800. The pa tient is negative of 700. Chest: Crackles bilateral, subcutaneous emphysema. Heart: Tachycardic. Abdomen: Soft, nontender. Extremities: No edema. Neuro: On vent, sedated. Laboratory Data: WBC 18.5, H and H 13.2/40.6, and platelets 321. Sodium 143, potassium 5.3, bicarb 31, BUN 65, creatinine 1.5, GFR of 48, glucose of 300, calcium 7.9, phosphorus 3.6. Chest x-ray, con gestion/ARDS. Assessment And Plan: 1.Acute kidney injury secondary to COVID pneumonia/toxic acute tubular necrosis, COVID nephropathy, still on the wet side. I am going to continue the patient on current dose of Lasix to maintain good urine output to the side of the dry side. 2.Marginal hyperkalemia. Continue diuresis. 3.Hypertension, controlled, optimal. Continue current medication. 4.Respiratory failure secondary to COVID pneumonia. Continue follow up with ID. 5.Secondary hyperpara calcium and phosphorus on the normal side. I do not see any need for vitamin D analog for the time being. 6.Marginal hypernatremia. Continue free water. Continue diuresis. MA/MODL Voice ID: [id number] Report ID: [id number]
[2020-02-20] MEDS: INSULIN GLARGINE 100 UNITS/ML SQ SCH (20:29)
[2020-02-21] MEDS: FENTANYL CITR 100 MCG/2 ML IV PRN ×2 (01:50→13:55)
[2020-02-21] MEDS: propofoL 1,000 MG/100 ML VIAL IV PRN ×6 (02:59→21:00)
[2020-02-21 05:04] LABS: Absolute Lymphocytes (CBC) 0.4 K/uL (0.7-4.9); Basophils % 0.8 % (0-1.3); Hematocrit 41.4 % (39.6-49.0); Lymphocytes % 1.6 % (15.3-44.8); MPV 8.3 fL (7.6-11.3); RBC Red Blood Cell Count 4.59 M/uL (4.33-5.43)
[2020-02-21 05:17] LABS: Albumin 1.9 g/dL (3.4-5.0); Phosphorus 4.8 mg/dL (2.5-4.9); Potassium 5.5 mmol/L (3.5-5.1)
[2020-02-21 05:23] LABS: Blood Morphology Comment NOT SEEN (NOT SEEN); Platelet Estimate ADEQ
[2020-02-21] MEDS: INSULIN -REGULAR HUMAN 50 UNIT/0.5 ML ML SQ SCH ×3 (05:46→17:53)
[2020-02-21] MEDS: BUDESONIDE 0.5 MG/2 ML NEB NEB SCH ×2 (08:15→20:00)
[2020-02-21] MEDS: THIAMINE HCL 100 MG TABLET PO SCH (08:25)
[2020-02-21] MEDS: FLUCONAZOLE 100 MG TAB PO SCH (08:25)
[2020-02-21] MEDS: ZINC SULFATE 220 MG CAP PO SCH ×2 (08:26→21:04)
[2020-02-21] MEDS: MIDAZOLAM HCL 2 MG/2 ML INJ IV PRN (08:26)
[2020-02-21] MEDS: FAMOTIDINE 20 MG/2 ML VIAL IV SCH ×2 (08:26→21:04)
[2020-02-21] MEDS: ASCORBIC ACID 500 MG TABLET PO SCH (08:26)
[2020-02-21] MEDS: dexAMETHasone 4 MG/ML VIAL IV SCH ×2 (08:26→21:03)
[2020-02-21] MEDS: APIXABAN 5 MG TABLET PO SCH ×2 (08:26→21:03)
[2020-02-21] MEDS: DOXYCYCLINE 100 MG CAP PO SCH ×2 (08:27→21:04)
[2020-02-21] MEDS: CEFEPIME/SWI 1gm 10 ML IVP SCH ×2 (08:28→21:04)
[2020-02-21] MEDS: INSULIN GLARGINE 100 UNITS/ML SQ SCH ×3 (08:30→21:03)
--- NOTE | 2020-02-21 08:52 | P.PN ---
Subjective Date of Service: 02/20/20 Primary Care Provider: Humberto Wells MD Chief Complaint: respiratory failure from adan virus Patient still has significant desaturation as endotracheal tube was advanced he developed desaturation to go approximately 50 min to return to his baseline otherwise on propofol tolerating tube feeds no change Review of Systems is unable to be obtained Physical Examination - Vital Signs Temperature: 98 F Blood Pressure: 117/63 Pulse: 99 Respirations: 18 Pulse Ox (%): 93 - Physical Exam General: Other (Deferred) Other Physical/Emotional Findings: Patient remains on BiPAP. - Studies Medications List Reviewed: Yes Assessment & Plan - Problems (Diagnosis) (1) Respiratory failure Current Visit: Yes Status: Acute Plan: Patient has respiratory failure stable continued titrate his O2 down to a sat of 90% his Lasix was recently increase may be responsible for his worsening renal function. Nephrology with just is dose white count elevated blood sugars elevated at insulin has been increased Qualifiers: Chronicity: acute
--- NOTE | 2020-02-21 08:55 | P.PN ---
Subjective Date of Service: 02/21/20 Primary Care Provider: Humberto Wells MD Chief Complaint: respiratory failure from adan virus Patient's condition is stable will plan to titrate his O2 down desat on minimal exertion Review of Systems is unable to be obtained Physical Examination - Vital Signs Temperature: 98 F Blood Pressure: 117/63 Pulse: 99 Respirations: 18 Pulse Ox (%): 93 - Physical Exam General: Other (Unresponsive on propofol subcutaneous emphysema) Other Physical/Emotional Findings: Patient remains on BiPAP. - Studies Medications List Reviewed: Yes Assessment & Plan - Problems (Diagnosis) (1) Respiratory failure Current Visit: Yes Status: Acute Plan: No other change nephrology to adjust his Lasix dose insulin increased titrate O2 down to a sat of 90% labs reviewed Pulmicort was added yesterday he is on maximum therapy triple antibiotics chest x-ray reviewed endotracheal tube position is satisfactory little bit high the reluctant to advance it vital signs stable otherwise Qualifiers: Chronicity: acute
[2020-02-21] MEDS ORDERED: D50W 25 GM/50 ML SYRINGE/VIAL IV ONE (09:20)
[2020-02-21] MEDS ORDERED: INSULIN -REGULAR HUMAN 50 UNIT/0.5 ML ML SQ ONE (09:21)
--- NOTE | 2020-02-21 09:43 | P.PN ---
Subjective Date of Service: 02/21/20 Primary Care Provider: Humberto Wells MD Chief Complaint: respiratory failure from adan virus Subjective Pt with resp. failure due to COVID 19, intubated, course complicated by subcutaneous emphysema , nephrology consulted for MANAN Today Cr stable Bun and K trending up, which is could be due to overdiuresis, will reduce lasix to once daily will change feeding formula to Nepro will repeat CXR tomorrow Physical exam general: sedated and intubated Neck; Supple, No elevated JVD heart: RRR, normal S1,2 no murmur or rub Chest: CTAB, no rlaes or wheezes Abdomen: Soft , Nt Extremities trace Lt hand swelling Assessment And Plan: Acute kidney injury possibly due to COVID Nephropathy Cr stable , but BUN trending up which is could be due to diuresis and steroids will reduce lasix will change feeding formula to NEpro Hyperkalmeia as above will give insulin and D50 and calcium gluconate and change fromula Respiratory failure intubated due to COVID 19 COVID 19 Pneumonia cont supportive care S/P plama and Remdesvir DM as per PCP total time spent 55 min Prognosis guarded Physical Examination - Vital Signs Temperature: 98 F Blood Pressure: 117/63 Pulse: 99 Respirations: 18 Pulse Ox (%): 93 - Physical Exam Other Physical/Emotional Findings: Patient remains on BiPAP. - Studies Medications List Reviewed: Yes
[2020-02-21] MEDS ORDERED: CALCIUM GLUC 10% INJ 4.65 MEQ in NA CHLORIDE 0.9% 100 ML IV ONE (09:45)
[2020-02-21] MEDS: FUROSEMIDE 40 MG/4 ML VIAL IV SCH (09:48)
--- NOTE | 2020-02-21 10:38 | P.PN ---
Subjective Date of Service: 02/21/20 Primary Care Provider: Humberto Wells MD Chief Complaint: respiratory failure from adan virus Subjective: No new changes Review of Systems is unable to be obtained Physical Examination - Vital Signs Temperature: 98 F Blood Pressure: 120/62 Pulse: 91 Respirations: 18 Pulse Ox (%): 93 - Physical Exam General: Mild distress HEENT: Atraumatic, Normocephalic Neck: Supple Respiratory: Diminished, Crackles/rales Cardiovascular: Normal pulses, Regular rate/rhythm Capillary refill: <2 Seconds Gastrointestinal: Soft and benign, W/out hepatosplenomegaly Musculoskeletal: No swelling Integumentary: No rashes, No tenderness/swelling Neurological: Other (Sedated) Lymphatics: No axilla or inguinal lymphadenopathy Urinary: Other (No bladder distention) - Studies Laboratory Tests 02/08/20 02/08/20 02/09/20 15:48 15:48 04:50 WBC 9.6 12.1 H D RBC 5.03 5.14 Hgb 14.7 15.2 Hct 44.1 45.7 MCV 87.6 88.9 MCH 29.2 29.5 MCHC 33.3 33.2 RDW 14.2 14.4 Plt Count 254 290 MPV 7.5 L 8.2 Neutrophils % 86.4 H 94.4 H Lymphocytes % 5.9 L 2.8 L Monocytes % 6.7 2.8 L Eosinophils % 0.0 0.0 Basophils % 1.0 0.0 Absolute Neutrophils 8.3 H 11.4 H Absolute Lymphocytes 0.6 L 0.3 L Absolute Monocytes 0.6 0.3 Absolute Eosinophils 0.0 0.0 Absolute Basophils 0.1 0.0 Morphology Comment Not seen PT INR APTT D-Dimer Sodium 138 Potassium 3.4 L Chloride 105 Carbon Dioxide 26 BUN 25 H Creatinine 1.71 H Estimated GFR 41 L Glucose 134 H Lactic Acid Calcium 8.2 L Phosphorus Magnesium Ferritin Total Bilirubin 1.0 AST 49 H ALT 58 Alkaline Phosphatase 92 Lactate Dehydrogenase Troponin I C-Reactive Protein NT-Pro-B Natriuret Pep Serum Total Protein 7.6 Albumin 2.8 L Globulin 4.8 H Albumin/Globulin Ratio 0.6 L Procalcitonin 02/09/20 02/09/20 02/09/20 04:50 04:50 04:50 WBC RBC Hgb Hct MCV MCH MCHC RDW Plt Count MPV Neutrophils % Lymphocytes % Monocytes % Eosinophils % Basophils % Absolute Neutrophils Absolute Lymphocytes Absolute Monocytes Absolute Eosinophils Absolute Basophils Morphology Comment PT 15.9 H INR 1.36 APTT 35.9 D-Dimer 1209 H* Sodium 140 Potassium 3.7 Chloride 107 Carbon Dioxide 24 BUN 22 H Creatinine 1.39 H Estimated GFR 52 L Glucose 165 H Lactic Acid 1.9 Calcium 8.4 L Phosphorus 1.4 L Magnesium 2.3 Ferritin 826.9 H Total Bilirubin 0.6 AST 49 H ALT 55 Alkaline Phosphatase 88 Lactate Dehydrogenase 638 H Troponin I < 0.02 C-Reactive Protein 288.00 H NT-Pro-B Natriuret Pep 374 H Serum Total Protein 7.8 Albumin 2.7 L Globulin 5.1 H Albumin/Globulin Ratio 0.5 L Procalcitonin 02/09/20 02/09/20 04:50 05:00 WBC RBC Hgb Hct MCV MCH MCHC RDW Plt Count MPV Neutrophils % Lymphocytes % Monocytes % Eosinophils % Basophils % Absolute Neutrophils Absolute Lymphocytes Absolute Monocytes Absolute Eosinophils Absolute Basophils Morphology Comment PT INR APTT D-Dimer Sodium Cancelled Potassium Cancelled Chloride Cancelled Carbon Dioxide Cancelled BUN Cancelled Creatinine Cancelled Estimated GFR Cancelled Glucose Cancelled Lactic Acid Calcium Cancelled Phosphorus Magnesium Ferritin Total Bilirubin AST ALT Alkaline Phosphatase Lactate Dehydrogenase Troponin I C-Reactive Protein NT-Pro-B Natriuret Pep Serum Total Protein Albumin Globulin Albumin/Globulin Ratio Procalcitonin 3.59 H Medications List Reviewed: Yes Assessment & Plan - Problems (Diagnosis) (1) Pneumonia due to human coronavirus Current Visit: Yes Status: Acute (2) Respiratory failure Current Visit: Yes Status: Acute Plan: Assessment and plan Acute respiratory distress syndrome secondary to Covid pneumonia Leukocytosis suspect underlying secondary bacterial versus fungal infection: Acute on chronic renal failure stage 3 with hypernatremia and hyperkalemia with ATN related to COVID Subcutaneous emphysema Diabetes mellitus type 2 Essential hypertension Hyperlipidemia Chronic renal disease stage III Elevated liver function Plan: Acute respiratory distress syndrome secondary to Covid pneumonia: Patient remains stable. Status post convalescent plasma and Remdesivir. Appreciate help from pulmonology Continue IV steroids. Pulmicort nebs added. Continue to wean off ventilator. Possible underlying secondary bacterial/fungal infection. Awaiting cultures. IV antibiotic therapy/oral therapy and IV antifungal. Continue DVT prophylaxis. Patient previously denied by [facility], [facility] and [facility]. [facility] and MATY re-attempted still no bed availability. Will continue to reach out. Appreciate help from pulmonology and nephrology Leukocytosis suspect underlying secondary bacterial versus fungal infection: Steroids also will be contributing to leukocytosis Continue current antibiotic therapy and antifungal therapy. Monitor blood, sputum and urine culture results. Acute on chronic renal failure stage 3 with hypernatremia and hyperkalemia with ATN related to COVID: Nephrology continues to adjust input and output. Optimize Lasix dosage. Subcutaneous emphysema: Will monitor closely. Diabetes mellitus type 2: Continue Accu-Cheks. On basal insulin Lantus 10 units b.i.d.. Will adjust accordingly. Essential hypertension: Antihypertensives titrated Hyperlipidemia: Statin held due to elevated LFTs Elevated liver function: Patient off medication statin medication. Time Spent Managing Pts Care (In Minutes): 55 Qualifiers: Chronicity: acute Physician Review Additional Text: Impression: Acute respiratory distress syndrome secondary to Covid pneumonia Leukocytosis suspect underlying secondary bacterial versus fungal infection: Acute on chronic renal failure stage 3 with hypernatremia and hyperkalemia with ATN related to COVID Subcutaneous emphysema Diabetes mellitus type 2 Essential hypertension Hyperlipidemia Chronic renal disease stage III Elevated liver function Plan: Acute respiratory distress syndrome secondary to Covid pneumonia: Patient remains stable. During the course of his stay patient has received plasma and Remdesivir. ET tube was advanced as per pulmonology. This was attempted but patient desatted. ET tube replaced 2 prior setting. Patient recovered. Repeat x-ray shows better placement. Will discuss further with pulmonology to see if this will require further adjustment. Continue IV steroids. Pulmicort nebs added. Continue to wean off ventilator. Suspect underlying secondary bacterial/fungal infection. Awaiting cultures. Patient on IV antibiotic therapy/oral therapy and IV antifungal. Continue DVT prophylaxis. Patient previously denied by [facility], [facility] and [facility]. Anmol re-attempted today. still no bed availability. Will continue to reach out. Patient still requires improvement in vent settings to be transported if bed available. Will need to consider tracheostomy after 14 days with current ET tube. If still with current settings this would still be very difficult. Nephrology continues to adjust medication. Will discuss with pulmonology, nephrology. Will discuss further with . I will transfer care to the next hospitalist tomorrow. I will go over the plan of care with him. Leukocytosis suspect underlying secondary bacterial versus fungal infection: Continue current antibiotic therapy and antifungal therapy. Await blood, sputum and urine culture results. Acute on chronic renal failure stage 3 with hypernatremia and hyperkalemia with ATN related to COVID: Nephrology continues to adjust input and output. Lasix increased. Subcutaneous emphysema: Will monitor closely. Continue with above Diabetes mellitus type 2: Will check A1c. Continue Accu-Cheks. Will start basal insulin Lantus 10 units b.i.d.. Will adjust accordingly. Essential hypertension: Will provide medication for blood pressure as needed Hyperlipidemia: Medication has been discontinued Elevated liver function: Patient off medication statin medication.
[2020-02-21] MEDS: LORazepam 2 MG/ML VIAL IV PRN ×3 (11:09→23:07)
[2020-02-22] MEDS: INSULIN -REGULAR HUMAN 50 UNIT/0.5 ML ML SQ SCH ×5 (00:03→23:55)
[2020-02-22] MEDS: propofoL 1,000 MG/100 ML VIAL IV PRN ×8 (00:40→23:49)
[2020-02-22] MEDS: FENTANYL CITR 100 MCG/2 ML IV PRN ×2 (01:49→13:32)
[2020-02-22] MEDS: LORazepam 2 MG/ML VIAL IV PRN (04:30)
[2020-02-22 06:48] LABS: Absolute Lymphocytes (CBC) 0.3 K/uL (0.7-4.9); Basophils % 0.8 % (0-1.3); Hematocrit 42.2 % (39.6-49.0); Lymphocytes % 1.3 % (15.3-44.8); MPV 8.9 fL (7.6-11.3); RBC Red Blood Cell Count 4.64 M/uL (4.33-5.43)
[2020-02-22 07:02] LABS: Phosphorus 5.3 mg/dL (2.5-4.9)
[2020-02-22 07:03] LABS: Potassium 5.8 mmol/L (3.5-5.1)
[2020-02-22] MEDS ORDERED: Pharmacy Consult 1 EA XX PRN (07:17)
[2020-02-22] MEDS ORDERED: NA CHLORIDE 0.9% 1,000 ML IV ONE (07:33)
[2020-02-22] MEDS ORDERED: ALBUTEROL 2.5 MG/3 ML NEB SOL NEB ONE (07:34)
[2020-02-22] MEDS ORDERED: GLUCAGON 1 MG/VIAL IM PRN (07:35)
[2020-02-22] MEDS ORDERED: D50W 25 GM/50 ML SYRINGE/VIAL IV ONE (07:35)
[2020-02-22] MEDS ORDERED: D50W 25 GM/50 ML SYRINGE/VIAL IV PRN (07:35)
[2020-02-22] MEDS ORDERED: INSULIN -REGULAR HUMAN 50 UNIT/0.5 ML ML IV ONE (07:36)
--- NOTE | 2020-02-22 07:53 | RAD REPORT ---
EXAM DESCRIPTION: Lm Single View02/22/2020 7:12 am CLINICAL HISTORY: Chest pain COMPARISON: February 19 FINDINGS: Endotracheal tube has its tip 5 centimeters from the jonel PICC line in place Mild bilateral pulmonary opacities have partially resolved. Significant improvement in the subcutaneo us emphysema
[2020-02-22] MEDS: BUDESONIDE 0.5 MG/2 ML NEB NEB SCH ×2 (08:00→20:00)
[2020-02-22] MEDS: FAMOTIDINE 20 MG/2 ML VIAL IV SCH ×2 (08:25→20:32)
[2020-02-22] MEDS: dexAMETHasone 4 MG/ML VIAL IV SCH ×2 (08:25→20:31)
[2020-02-22] MEDS: INSULIN GLARGINE 100 UNITS/ML SQ SCH ×2 (08:26→20:31)
[2020-02-22] MEDS: THIAMINE HCL 100 MG TABLET PO SCH (08:26)
[2020-02-22] MEDS: ASCORBIC ACID 500 MG TABLET PO SCH (08:27)
[2020-02-22] MEDS: APIXABAN 5 MG TABLET PO SCH ×2 (08:28→20:31)
[2020-02-22] MEDS: ZINC SULFATE 220 MG CAP PO SCH ×2 (08:28→20:32)
[2020-02-22] MEDS: FLUCONAZOLE 100 MG TAB PO SCH (08:28)
[2020-02-22 08:29] LABS: Thyroid Stimulating Hormone 0.217 uIU/mL (0.360-3.740)
[2020-02-22 08:53] LABS: Blood Morphology Comment NOT SEEN (NOT SEEN); Platelet Estimate ADEQ
[2020-02-22] MEDS ORDERED: Meropenem 500 MG VIAL IV SCH (09:00)
[2020-02-22] MEDS: Meropenem 500 MG in NA CHLORIDE 0.9% 100 ML IV SCH ×2 (09:56→20:32)
[2020-02-22] MEDS: FUROSEMIDE 40 MG/4 ML VIAL IV SCH (09:57)
[2020-02-22] MEDS ORDERED: VANCOMYCIN 2.75 GM in NA CHLORIDE 0.9% 500 ML IVPB ONE (10:00)
--- NOTE | 2020-02-22 10:18 | P.PN ---
Subjective Date of Service: 02/22/20 Primary Care Provider: Humberto Wells MD Chief Complaint: respiratory failure from adan virus Subjective: No new changes Review of Systems is unable to be obtained Physical Examination - Vital Signs Temperature: 97.4 F Blood Pressure: 134/73 Pulse: 81 Respirations: 17 Pulse Ox (%): 93 - Physical Exam General: Other (Sedated ) HEENT: Atraumatic, Normocephalic Neck: Supple Respiratory: Diminished, Crackles/rales Cardiovascular: Regular rate/rhythm, Normal S1 S2 Capillary refill: <2 Seconds Gastrointestinal: Soft and benign, Non-distended Musculoskeletal: No clubbing, No swelling Integumentary: No rashes, No significant lesion Neurological: Other (Sedated ) Lymphatics: No axilla or inguinal lymphadenopathy Other Physical/Emotional Findings: Patient remains on BiPAP. - Studies Laboratory Tests 02/08/20 02/08/20 02/09/20 15:48 15:48 04:50 WBC 9.6 12.1 H D RBC 5.03 5.14 Hgb 14.7 15.2 Hct 44.1 45.7 MCV 87.6 88.9 MCH 29.2 29.5 MCHC 33.3 33.2 RDW 14.2 14.4 Plt Count 254 290 MPV 7.5 L 8.2 Neutrophils % 86.4 H 94.4 H Lymphocytes % 5.9 L 2.8 L Monocytes % 6.7 2.8 L Eosinophils % 0.0 0.0 Basophils % 1.0 0.0 Absolute Neutrophils 8.3 H 11.4 H Absolute Lymphocytes 0.6 L 0.3 L Absolute Monocytes 0.6 0.3 Absolute Eosinophils 0.0 0.0 Absolute Basophils 0.1 0.0 Morphology Comment Not seen PT INR APTT D-Dimer Sodium 138 Potassium 3.4 L Chloride 105 Carbon Dioxide 26 BUN 25 H Creatinine 1.71 H Estimated GFR 41 L Glucose 134 H Lactic Acid Calcium 8.2 L Phosphorus Magnesium Ferritin Total Bilirubin 1.0 AST 49 H ALT 58 Alkaline Phosphatase 92 Lactate Dehydrogenase Troponin I C-Reactive Protein NT-Pro-B Natriuret Pep Serum Total Protein 7.6 Albumin 2.8 L Globulin 4.8 H Albumin/Globulin Ratio 0.6 L Procalcitonin 02/09/20 02/09/20 02/09/20 04:50 04:50 04:50 WBC RBC Hgb Hct MCV MCH MCHC RDW Plt Count MPV Neutrophils % Lymphocytes % Monocytes % Eosinophils % Basophils % Absolute Neutrophils Absolute Lymphocytes Absolute Monocytes Absolute Eosinophils Absolute Basophils Morphology Comment PT 15.9 H INR 1.36 APTT 35.9 D-Dimer 1209 H* Sodium 140 Potassium 3.7 Chloride 107 Carbon Dioxide 24 BUN 22 H Creatinine 1.39 H Estimated GFR 52 L Glucose 165 H Lactic Acid 1.9 Calcium 8.4 L Phosphorus 1.4 L Magnesium 2.3 Ferritin 826.9 H Total Bilirubin 0.6 AST 49 H ALT 55 Alkaline Phosphatase 88 Lactate Dehydrogenase 638 H Troponin I < 0.02 C-Reactive Protein 288.00 H NT-Pro-B Natriuret Pep 374 H Serum Total Protein 7.8 Albumin 2.7 L Globulin 5.1 H Albumin/Globulin Ratio 0.5 L Procalcitonin 02/09/20 02/09/20 04:50 05:00 WBC RBC Hgb Hct MCV MCH MCHC RDW Plt Count MPV Neutrophils % Lymphocytes % Monocytes % Eosinophils % Basophils % Absolute Neutrophils Absolute Lymphocytes Absolute Monocytes Absolute Eosinophils Absolute Basophils Morphology Comment PT INR APTT D-Dimer Sodium Cancelled Potassium Cancelled Chloride Cancelled Carbon Dioxide Cancelled BUN Cancelled Creatinine Cancelled Estimated GFR Cancelled Glucose Cancelled Lactic Acid Calcium Cancelled Phosphorus Magnesium Ferritin Total Bilirubin AST ALT Alkaline Phosphatase Lactate Dehydrogenase Troponin I C-Reactive Protein NT-Pro-B Natriuret Pep Serum Total Protein Albumin Globulin Albumin/Globulin Ratio Procalcitonin 3.59 H Medications List Reviewed: Yes Assessment & Plan - Problems (Diagnosis) (1) Pneumonia due to human coronavirus Current Visit: Yes Status: Acute (2) Respiratory failure Current Visit: Yes Status: Acute Plan: Assessment and plan Acute respiratory distress syndrome secondary to Covid pneumonia Leukocytosis suspect underlying secondary bacterial versus fungal infection: Acute on chronic renal failure stage 3 with hypernatremia and hyperkalemia with ATN related to COVID Subcutaneous emphysema Diabetes mellitus type 2 Essential hypertension Hyperlipidemia Chronic renal disease stage III Elevated liver function Plan: Acute respiratory distress syndrome secondary to Covid pneumonia: Intubated on mechanical ventilator support Appreciate help from pulmonology Status post convalescent plasma and Remdesivir. Appreciate help from pulmonology Continue IV steroids. Pulmicort nebs Will try to wean off ventilator. Possible underlying secondary bacterial/fungal infection. Cultures negative so far Continue antibiotics and IV antifungal. Continue DVT prophylaxis. Patient previously denied by [facility], [facility] and [employer]. Appreciate help from pulmonology and nephrology Leukocytosis suspect underlying secondary bacterial versus fungal infection: Steroids Continue current antibiotic therapy and antifungal therapy. Monitor blood, sputum and urine culture results. Acute on chronic renal failure stage 3 with hypernatremia and hyperkalemia with ATN related to COVID: Appreciate help from Nephrology Monitor Is& Os Optimize Lasix dosage. Subcutaneous emphysema: Will monitor closely. Diabetes mellitus type 2: Continue Accu-Cheks. On basal insulin as well Will adjust accordingly. Essential hypertension: Antihypertensives titrated Hyperlipidemia: Statin held due to elevated LFTs Elevated liver function: Patient off medication statin medication. Will monitor LFTs Hyperkalemia Antihyper kalemic measures with D5, insulin, albuterol, Lasix and IV fluids will recheck a BMP in the afternoon Qualifiers: Chronicity: acute Time Spent Managing Pts Care (In Minutes): 45
[2020-02-22] MEDS: FUROSEMIDE 40 MG/4 ML VIAL IV ONE ×2 (11:37→12:00)
--- NOTE | 2020-02-22 12:42 | PN ---
Date of Progress Note: 02/22/2020 Subjective: The patient was admitted with COVID pneumonia, respiratory failure, and patient been on vent. The patient had acute kidney injury secondary to toxic acute tubular necrosis. The patient wilson s been on diuresis. Physical Examination: Vital Signs: Blood pressure 134/73, pulse of 81. The patient had good urine output of 2700, negativ e of 300. Chest: Crackles bilateral. Heart: S1 and S2. Systolic murmur. The patient is on vent. Abdomen: Soft, nontender. Extremities: No edema. Neuro: The patient sedated on vent. Physical exam was done by the Critical Care nurse as the patient on isolation for COVID pneumonia. Laboratory Data: WBC 13.9, H and H 13.6/24.2, platelets 329. Sodium 139, potassium 5.8, bicarb 33, BUN 84, creatinine 1.6, glucose , calcium 9.1, phos 5.3, albumin 2. Chest x-ray done today showing interstitial infiltration bilateral, the same as before. Current Medications: The patient on include: 1.Fluconazole. 2.Meropenem. 3.Vancomycin. 4.Eliquis. 5.Lasix 40 daily. 6.Dexamethasone. 7.Zofran. Assessment And Plan: 1.Acute kidney injury secondary to COVID pneumonia, toxic acute tubular necrosis, nonoliguric, looke d to me start to be normal volume. We going to continue to monitor. 2.Continue current dose of Lasix to maintain on the dry status given the COVID pneumonia. 3.Hyperkalemia. The patient on anticoagulation. Hemoglobin been stable, but he has persistent lay turia. I am going to go ahead and repeat a TSH and CK. Agree with changed the tube feeding and we w ill give the patient a bolus of normal 500 and we will give Lasix. We will give albuterol and D50 wi th insulin, and we will follow up the patient. 4.Diabetes, not controlled. I am going to go ahead and increase his Lantus to 25. We will follow u p with hospitalist. 5.Respiratory failure secondary to COVID pneumonia superimposed with bacterial pneumonia. Continue current vent support. We will follow up with Pulmonary. 6.Acidosis secondary to renal failure, recovered, resolved. 7.Hyponatremia, marginal. Continue current free water. Continue diuresis. MA/MODL Voice ID: [id number] Report ID: [id number]
[2020-02-22 15:24] LABS: Magnesium 2.7 mg/dL (1.8-2.4); Phosphorus 5.6 mg/dL (2.5-4.9); Potassium 5.1 mmol/L (3.5-5.1)
[2020-02-22] MEDS ORDERED: NA CHLORIDE 0.9% 100 ML ONE (19:53)
[2020-02-22] MEDS: NEPRO 1,000 ML BOT RTH PRN (20:33)
[2020-02-23] MEDS: propofoL 1,000 MG/100 ML VIAL IV PRN ×4 (03:30→16:56)
[2020-02-23] MEDS: LORazepam 2 MG/ML VIAL IV PRN ×4 (04:48→21:00)
[2020-02-23 05:14] LABS: Absolute Lymphocytes (CBC) 0.2 K/uL (0.7-4.9); Basophils % 0.6 % (0-1.3); Hematocrit 39.2 % (39.6-49.0); MPV 8.5 fL (7.6-11.3); RBC Red Blood Cell Count 4.33 M/uL (4.33-5.43)
[2020-02-23 05:36] LABS: Albumin 1.9 g/dL (3.4-5.0); Bilirubin Total 0.3 mg/dL (0.2-1.0)
[2020-02-23 05:37] LABS: Potassium 5.7 mmol/L (3.5-5.1)
[2020-02-23] MEDS: INSULIN -REGULAR HUMAN 50 UNIT/0.5 ML ML SQ SCH ×3 (06:15→17:34)
[2020-02-23 06:18] LABS: Albumin 1.9 g/dL (3.4-5.0); Phosphorus 5.1 mg/dL (2.5-4.9)
[2020-02-23 06:22] LABS: Potassium 5.7 mmol/L (3.5-5.1)
[2020-02-23] MEDS ORDERED: ALBUTEROL 2.5 MG/3 ML NEB SOL NEB ONE (06:35)
[2020-02-23] MEDS ORDERED: D50W 25 GM/50 ML SYRINGE/VIAL IV ONE (06:45)
[2020-02-23] MEDS ORDERED: INSULIN -REGULAR HUMAN 50 UNIT/0.5 ML ML IV ONE (06:45)
[2020-02-23] MEDS ORDERED: NA CHLORIDE 0.9% 500 ML IV ONE (06:45)
[2020-02-23 07:07] LABS: CKMB Creatine Kinase MB 1.2 ng/mL (0.3-3.6); Thyroid Stimulating Hormone 0.261 uIU/mL (0.360-3.740)
[2020-02-23] MEDS ORDERED: FUROSEMIDE 40 MG/4 ML VIAL IV ONE (07:15)
[2020-02-23] MEDS: dexAMETHasone 4 MG/ML VIAL IV SCH ×2 (08:17→20:20)
[2020-02-23] MEDS: FAMOTIDINE 20 MG/2 ML VIAL IV SCH ×2 (08:18→20:20)
[2020-02-23] MEDS: FUROSEMIDE 40 MG/4 ML VIAL IV SCH (08:18)
[2020-02-23] MEDS: APIXABAN 5 MG TABLET PO SCH ×2 (08:19→20:20)
[2020-02-23] MEDS: THIAMINE HCL 100 MG TABLET PO SCH (08:19)
[2020-02-23] MEDS: INSULIN GLARGINE 100 UNITS/ML SQ SCH ×2 (08:19→21:14)
[2020-02-23] MEDS: FLUCONAZOLE 100 MG TAB PO SCH (08:20)
[2020-02-23] MEDS: ASCORBIC ACID 500 MG TABLET PO SCH (08:20)
[2020-02-23] MEDS: ZINC SULFATE 220 MG CAP PO SCH ×2 (08:20→20:20)
[2020-02-23] MEDS: Meropenem 500 MG in NA CHLORIDE 0.9% 100 ML IV SCH ×2 (08:20→20:20)
[2020-02-23] MEDS: BUDESONIDE 0.5 MG/2 ML NEB NEB SCH ×2 (09:20→19:35)
[2020-02-23] MEDS: VANCOMYCIN 2 GM in NA CHLORIDE 0.9% 500 ML IVPB SCH (09:22)
[2020-02-23] MEDS: FENTANYL CITR 100 MCG/2 ML IV PRN ×3 (09:22→19:45)
[2020-02-23 09:54] LABS: UR SODIUM 8 mmol/L (27-287)
[2020-02-23 10:11] LABS: UR CL RANDOM < 10 mmol/L (25-40)
[2020-02-23] MEDS: MIDAZOLAM HCL 2 MG/2 ML INJ IV PRN ×4 (10:20→23:10)
--- NOTE | 2020-02-23 10:53 | P.PN ---
Subjective Date of Service: 02/23/20 Primary Care Provider: Humberto Wells MD Chief Complaint: respiratory failure from adan virus Subjective: No new changes (Still Intubated and on mechanical vent support) Review of Systems is unable to be obtained Physical Examination - Vital Signs Temperature: 98.9 F Blood Pressure: 124/73 Pulse: 90 Respirations: 22 Pulse Ox (%): 93 - Physical Exam General: Other (Sedated , Intubated ) HEENT: Atraumatic, Normocephalic Neck: Supple Respiratory: Diminished, Crackles/rales Cardiovascular: Regular rate/rhythm Capillary refill: <2 Seconds Gastrointestinal: Soft and benign, W/out hepatosplenomegaly Musculoskeletal: No swelling, No contractures Integumentary: No rashes, No significant lesion Neurological: Other (Sedated ) Lymphatics: No axilla or inguinal lymphadenopathy Urinary: Other (No bladder distention) - Studies Laboratory Tests 02/08/20 02/08/20 02/09/20 15:48 15:48 04:50 WBC 9.6 12.1 H D RBC 5.03 5.14 Hgb 14.7 15.2 Hct 44.1 45.7 MCV 87.6 88.9 MCH 29.2 29.5 MCHC 33.3 33.2 RDW 14.2 14.4 Plt Count 254 290 MPV 7.5 L 8.2 Neutrophils % 86.4 H 94.4 H Lymphocytes % 5.9 L 2.8 L Monocytes % 6.7 2.8 L Eosinophils % 0.0 0.0 Basophils % 1.0 0.0 Absolute Neutrophils 8.3 H 11.4 H Absolute Lymphocytes 0.6 L 0.3 L Absolute Monocytes 0.6 0.3 Absolute Eosinophils 0.0 0.0 Absolute Basophils 0.1 0.0 Morphology Comment Not seen PT INR APTT D-Dimer Sodium 138 Potassium 3.4 L Chloride 105 Carbon Dioxide 26 BUN 25 H Creatinine 1.71 H Estimated GFR 41 L Glucose 134 H Lactic Acid Calcium 8.2 L Phosphorus Magnesium Ferritin Total Bilirubin 1.0 AST 49 H ALT 58 Alkaline Phosphatase 92 Lactate Dehydrogenase Troponin I C-Reactive Protein NT-Pro-B Natriuret Pep Serum Total Protein 7.6 Albumin 2.8 L Globulin 4.8 H Albumin/Globulin Ratio 0.6 L Procalcitonin 02/09/20 02/09/20 02/09/20 04:50 04:50 04:50 WBC RBC Hgb Hct MCV MCH MCHC RDW Plt Count MPV Neutrophils % Lymphocytes % Monocytes % Eosinophils % Basophils % Absolute Neutrophils Absolute Lymphocytes Absolute Monocytes Absolute Eosinophils Absolute Basophils Morphology Comment PT 15.9 H INR 1.36 APTT 35.9 D-Dimer 1209 H* Sodium 140 Potassium 3.7 Chloride 107 Carbon Dioxide 24 BUN 22 H Creatinine 1.39 H Estimated GFR 52 L Glucose 165 H Lactic Acid 1.9 Calcium 8.4 L Phosphorus 1.4 L Magnesium 2.3 Ferritin 826.9 H Total Bilirubin 0.6 AST 49 H ALT 55 Alkaline Phosphatase 88 Lactate Dehydrogenase 638 H Troponin I < 0.02 C-Reactive Protein 288.00 H NT-Pro-B Natriuret Pep 374 H Serum Total Protein 7.8 Albumin 2.7 L Globulin 5.1 H Albumin/Globulin Ratio 0.5 L Procalcitonin 02/09/20 02/09/20 04:50 05:00 WBC RBC Hgb Hct MCV MCH MCHC RDW Plt Count MPV Neutrophils % Lymphocytes % Monocytes % Eosinophils % Basophils % Absolute Neutrophils Absolute Lymphocytes Absolute Monocytes Absolute Eosinophils Absolute Basophils Morphology Comment PT INR APTT D-Dimer Sodium Cancelled Potassium Cancelled Chloride Cancelled Carbon Dioxide Cancelled BUN Cancelled Creatinine Cancelled Estimated GFR Cancelled Glucose Cancelled Lactic Acid Calcium Cancelled Phosphorus Magnesium Ferritin Total Bilirubin AST ALT Alkaline Phosphatase Lactate Dehydrogenase Troponin I C-Reactive Protein NT-Pro-B Natriuret Pep Serum Total Protein Albumin Globulin Albumin/Globulin Ratio Procalcitonin 3.59 H Medications List Reviewed: Yes Assessment & Plan - Problems (Diagnosis) (1) Pneumonia due to human coronavirus Current Visit: Yes Status: Acute (2) Respiratory failure Current Visit: Yes Status: Acute Plan: Assessment and plan Acute respiratory distress syndrome secondary to Covid pneumonia Leukocytosis suspect underlying secondary bacterial versus fungal infection: Acute on chronic renal failure stage 3 with hypernatremia and hyperkalemia with ATN related to COVID Subcutaneous emphysema Diabetes mellitus type 2 Essential hypertension Hyperlipidemia Chronic renal disease stage III Elevated liver function Plan: Acute respiratory distress syndrome secondary to Covid pneumonia: Intubated on mechanical ventilator support Appreciate help from pulmonology Status post convalescent plasma and Remdesivir. Appreciate help from pulmonology Continue IV steroids. Pulmicort nebs Will try to wean off ventilator. Possible underlying secondary bacterial/fungal infection. Cultures negative so far Continue antibiotics and IV antifungal. Continue DVT prophylaxis. Patient previously denied by [facility], [facility], [facility] and [employer]. Appreciate help from pulmonology and nephrology Leukocytosis suspect underlying secondary bacterial versus fungal infection: Steroids Continue current antibiotic therapy and antifungal therapy. Monitor blood, sputum and urine culture results. Acute on chronic renal failure stage 3 with hypernatremia and hyperkalemia with ATN related to COVID: Appreciate help from Nephrology Monitor Is& Os Optimize Lasix dosage. Subcutaneous emphysema: Will monitor closely. Diabetes mellitus type 2: Continue Accu-Cheks. On basal insulin as well Will adjust accordingly. Essential hypertension: Antihypertensives titrated Hyperlipidemia: Statin held due to elevated LFTs Elevated liver function: Patient off medication statin medication. Will monitor LFTs Hyperkalemia Antihyper kalemic measures with D5, insulin, albuterol, Lasix and IV fluids Propofol may be contributing to hyperkalemia Will try to taper off propofol Monitor closely Qualifiers: Chronicity: acute Time Spent Managing Pts Care (In Minutes): 40
--- NOTE | 2020-02-23 13:43 | P.PN ---
Subjective Date of Service: 02/25/20 Primary Care Provider: Humberto Wells MD Chief Complaint: respiratory failure from adan virus Condition stable and is hyperkalemia ache still on 85% FiO2 chest x-ray seems to have improved Review of Systems is unable to be obtained Physical Examination - Vital Signs Temperature: 98.9 F Blood Pressure: 124/73 Pulse: 90 Respirations: 22 Pulse Ox (%): 93 - Physical Exam General: Other (Deferred) Other Physical/Emotional Findings: Patient remains on BiPAP. - Studies Medications List Reviewed: Yes Assessment & Plan - Problems (Diagnosis) (1) Respiratory failure Current Visit: Yes Status: Acute Plan: Patient is in respiratory failure condition stable renal failure hypoglycemia the to be concerned about propofol infusion syndrome of ordered lipid profile for tomorrow associated with the acidosis and rhabdomyolysis will discuss with ENT regarding possibility of for trach adan virus test is been ordered patient's antibiotics were changed yesterday it to meropenem vancomycin white count has declined blood pressure stable start patient on Mucomyst a possible anti inflammatory effect currently on 85% oxygen FiO2 peep of 15 Qualifiers: Chronicity: acute
[2020-02-23 13:47] LABS: Magnesium 2.6 mg/dL (1.8-2.4); Phosphorus 4.4 mg/dL (2.5-4.9); Potassium 4.9 mmol/L (3.5-5.1)
--- NOTE | 2020-02-23 13:47 | P.PN ---
Subjective Date of Service: 02/25/20 Primary Care Provider: Humberto Wells MD Chief Complaint: respiratory failure from adan virus No change in patient's condition still requiring high concentrations of oxygen renal failure Review of Systems is unable to be obtained Physical Examination - Vital Signs Temperature: 98.9 F Blood Pressure: 124/73 Pulse: 90 Respirations: 22 Pulse Ox (%): 93 - Physical Exam General: Other (Deferred) Other Physical/Emotional Findings: Patient remains on BiPAP. - Studies Medications List Reviewed: Yes Assessment & Plan - Problems (Diagnosis) (1) Respiratory failure Current Visit: Yes Status: Acute Plan: Patient's white count is elevated antibiotics change to meropenem and vancomycin doxycycline has been stopped renal function stable his hyperkalemia patient was started on Pulmicort seems to have some improvement Qualifiers: Chronicity: acute
--- NOTE | 2020-02-23 17:49 | PN ---
Date of Progress Note: 02/23/2020 History Of Present Illness: The patient was admitted with COVID pneumonia, had respiratory failure, has acute kidney injury, been experiencing recurrent hyperkalemia. Physical Examination: Vital Signs: When I saw the patient, blood pressure 124/73, pulse of 90, afebrile. The patient had good urine output on the last 24 hour, has 2400, the patient negative of 260. The rest of the exam h as been done by the nurse as the patient on isolation for COVID. Chest: Crackles bilateral. Heart: S1, S2. Regular. Abdomen: Soft, nontender. Extremities: No edema. Neuro: The patient sedated. Laboratory Data: WBC 18.3, H and H 12.7/39.2, platelets 265. Sodium 145, potassium 5.7, bicarb 34, BUN 73, creatinine 1.5, calcium 9.2, phos 5.1, albumin 1.9. TSH 2.6. CK 44, PTH of 170. Urinalysis , specific gravity of 1.030. Urine sodium of 8, urine potassium 22, urine chloride less than 10, tra nstubular potassium gradient calculated 27. Current Medications: The patient is on include; 1.Fluconazole. 2.Meropenem. 3.Vancomycin. 4.Albuterol. 5.Eliquis. 6.Lorazepam. 7.Zinc sulfate. 8.Nepro. 9.Pepcid. Assessment And Plan: 1.Acute kidney injury secondary to COVID nephropathy, nonoliguric, normal volume/toxic acute tubular necrosis. I am going to continue to monitor the patient. The patient received a dose of Lasix toda y to facilitate more potassium diuresis given the hyperkalemia. 2.We will continue p.r.n. Lasix to establish better volume control and to establish more negative ba meilnda given that the patient on respiratory distress. We will accept the marginal decline in the kid wilder function to keep the patient on the dry side. 3.Hyperkalemia. Our differential before it was secondary to RTA questionable secondary to propofol. Transtubular potassium gradient did not support that diagnosis. The patient had leukocytosis persi stently. TSH and CK also were negative. Possibility is secondary to the leukocytosis. The patient received the cocktail treatment of today including Lasix, D50 with insulin, and albuterol. Repeat po tassium after 3 hours and we will repeat potassium serum tomorrow. 4.Diabetes, not controlled. We just increased the Lantus. We will follow up. 5.Respiratory failure secondary to COVID pneumonia. We will follow up with Pulmonary. 6.Acidosis secondary to renal failure, recovered, resolved. Currently hypercapnic respiratory acido sis with compensation of alkalosis superimposed with diuresis of the Lasix. Again, we are going to a ccept this marginal elevation in the bicarb and favor of establishing dry status on the on the patien t. 7.Hypernatremia, stable. We will continue free water. Continue Lasix. SOLANGE/TESFAYE Voice ID: [id number] Report ID: [id number]
[2020-02-23] MEDS: ALBUTEROL 2.5 MG/3 ML NEB SOL NEB SCH (19:35)
[2020-02-23] MEDS ORDERED: ACETYLCYST 6,000 MG/30 ML VIAL ONE (19:37)
[2020-02-23] MEDS: ACETYLCYST 20% 800 MG/4 ML VIAL PO SCH (20:20)
[2020-02-24] MEDS: INSULIN -REGULAR HUMAN 50 UNIT/0.5 ML ML SQ SCH ×4 (00:28→18:31)
[2020-02-24] MEDS: FENTANYL CITR 100 MCG/2 ML IV PRN ×4 (01:48→20:35)
[2020-02-24] MEDS: LORazepam 2 MG/ML VIAL IV PRN ×3 (03:00→14:12)
[2020-02-24] MEDS: MIDAZOLAM HCL 2 MG/2 ML INJ IV PRN ×2 (04:30→10:15)
[2020-02-24 05:39] LABS: Albumin 1.9 g/dL (3.4-5.0); Bilirubin Total 0.4 mg/dL (0.2-1.0); Magnesium 2.6 mg/dL (1.8-2.4); Phosphorus 3.5 mg/dL (2.5-4.9); Potassium 5.2 mmol/L (3.5-5.1); Protein, Total 5.6 g/dL (6.4-8.2)
[2020-02-24] MEDS: propofoL 1,000 MG/100 ML VIAL IV PRN ×3 (05:55→22:58)
[2020-02-24] MEDS: BUDESONIDE 0.5 MG/2 ML NEB NEB SCH ×2 (07:30→21:10)
[2020-02-24] MEDS: ALBUTEROL 2.5 MG/3 ML NEB SOL NEB SCH ×2 (07:30→21:10)
[2020-02-24] MEDS: ZINC SULFATE 220 MG CAP PO SCH ×2 (08:17→20:28)
[2020-02-24] MEDS: Meropenem 500 MG in NA CHLORIDE 0.9% 100 ML IV SCH ×2 (08:17→17:07)
[2020-02-24] MEDS: ASCORBIC ACID 500 MG TABLET PO SCH (08:18)
[2020-02-24] MEDS: FLUCONAZOLE 100 MG TAB PO SCH (08:18)
[2020-02-24] MEDS: INSULIN GLARGINE 100 UNITS/ML SQ SCH ×2 (08:18→20:56)
[2020-02-24] MEDS: THIAMINE HCL 100 MG TABLET PO SCH (08:18)
[2020-02-24] MEDS: dexAMETHasone 4 MG/ML VIAL IV SCH (08:19)
[2020-02-24] MEDS: FAMOTIDINE 20 MG/2 ML VIAL IV SCH (08:19)
[2020-02-24] MEDS: FUROSEMIDE 40 MG/4 ML VIAL IV SCH (08:19)
[2020-02-24] MEDS: ACETYLCYST 20% 800 MG/4 ML VIAL PO SCH ×2 (08:20→20:28)
[2020-02-24] MEDS: ACETAMINOPHEN 325 MG TABLET PO PRN (08:22)
[2020-02-24] MEDS: VANCOMYCIN 2 GM in NA CHLORIDE 0.9% 500 ML IVPB SCH (10:16)
[2020-02-24] MEDS: APIXABAN 5 MG TABLET PO SCH ×2 (10:59→20:28)
--- NOTE | 2020-02-24 11:16 | P.PN ---
Subjective Date of Service: 02/24/20 Primary Care Provider: Humberto Wells MD Chief Complaint: respiratory failure from adan virus Subjective: No new changes Review of Systems is unable to be obtained Physical Examination - Vital Signs Temperature: 99.2 F Blood Pressure: 159/64 Pulse: 111 Respirations: 26 Pulse Ox (%): 90 - Physical Exam General: Other (Sedated , on mechanical ventilator support) HEENT: Atraumatic, Normocephalic Neck: Supple Respiratory: Diminished Cardiovascular: Normal pulses, Regular rate/rhythm Capillary refill: <2 Seconds Gastrointestinal: Soft and benign, W/out hepatosplenomegaly Musculoskeletal: No clubbing, No swelling Integumentary: No rashes Neurological: Other (Sedated) Lymphatics: No axilla or inguinal lymphadenopathy - Studies Medications List Reviewed: Yes Assessment & Plan - Problems (Diagnosis) (1) Pneumonia due to human coronavirus Current Visit: Yes Status: Acute (2) Respiratory failure Current Visit: Yes Status: Acute Plan: Assessment and plan Acute respiratory distress syndrome secondary to Covid pneumonia Leukocytosis suspect underlying secondary bacterial versus fungal infection: Acute on chronic renal failure stage 3 with hypernatremia and hyperkalemia with ATN related to COVID Subcutaneous emphysema Diabetes mellitus type 2 Essential hypertension Hyperlipidemia Chronic renal disease stage III Elevated liver function Plan: Acute respiratory distress syndrome secondary to Covid pneumonia: Intubated on mechanical ventilator support Appreciate help from pulmonology Currently stable on ventilator Status post convalescent plasma and Remdesivir. Appreciate help from pulmonology Held IV steroids due to hyperglycemia Pulmicort nebs Will try to wean off ventilator. Possible underlying secondary bacterial/fungal infection. Cultures negative so far Continue antibiotics and IV antifungal. Continue DVT prophylaxis. Patient previously denied by [facility], [facility], [facility] and [employer]. Appreciate help from pulmonology and nephrology Leukocytosis suspect underlying secondary bacterial versus fungal infection: Continue current antibiotic therapy and antifungal therapy. Monitor blood, sputum and urine culture results. Acute on chronic renal failure stage 3 with hypernatremia and hyperkalemia with ATN related to COVID: Appreciate help from Nephrology Monitor Is& Os Optimize Lasix dosage. Hypernatremia We increase the free water flushes Monitor closely BMP daily appreciate help from nephrology Diabetes mellitus type 2: Continue Accu-Cheks. On basal insulin as well Will adjust Essential hypertension: Antihypertensives titrated Hyperlipidemia: Statin held due to elevated LFTs Elevated liver function: Patient off medication statin medication. Will monitor LFTs Hyperkalemia Antihyper kalemic measures Will try to taper off propofol Monitor closely Qualifiers: Chronicity: acute Physician Review Additional Text: Impression: Acute respiratory distress syndrome secondary to Covid pneumonia Leukocytosis suspect underlying secondary bacterial versus fungal infection: Acute on chronic renal failure stage 3 with hypernatremia and hyperkalemia with ATN related to COVID Subcutaneous emphysema Diabetes mellitus type 2 Essential hypertension Hyperlipidemia Chronic renal disease stage III Elevated liver function Plan: Acute respiratory distress syndrome secondary to Covid pneumonia: Patient remains stable. During the course of his stay patient has received plasma and Remdesivir. ET tube was advanced as per pulmonology. This was attempted but patient desatted. ET tube replaced 2 prior setting. Patient recovered. Repeat x-ray shows better placement. Will discuss further with pulmonology to see if this will require further adjustment. Continue IV steroids. Pulmicort nebs added. Continue to wean off ventilator. Suspect underlying secondary bacterial/fungal infection. Awaiting cultures. Patient on IV antibiotic therapy/oral therapy and IV antifungal. Continue DVT prophylaxis. Patient previously denied by [facility], [facility], [facility] and [employer]. [employer] and [facility] re-attempted today. still no bed availability. Will continue to reach out. Patient still requires improvement in vent settings to be transported if bed available. Will need to consider tracheostomy after 14 days with current ET tube. If still with current settings this would still be very difficult. Nephrology continues to adjust medication. Will discuss with pulmonology, nephrology. Will discuss further with . I will transfer care to the next hospitalist tomorrow. I will go over the plan of care with him. Leukocytosis suspect underlying secondary bacterial versus fungal infection: Continue current antibiotic therapy and antifungal therapy. Await blood, sputum and urine culture results. Acute on chronic renal failure stage 3 with hypernatremia and hyperkalemia with ATN related to COVID: Nephrology continues to adjust input and output. Lasix increased. Subcutaneous emphysema: Will monitor closely. Continue with above Diabetes mellitus type 2: Will check A1c. Continue Accu-Cheks. Will start basal insulin Lantus 10 units b.i.d.. Will adjust accordingly. Essential hypertension: Will provide medication for blood pressure as needed Hyperlipidemia: Medication has been discontinued Elevated liver function: Patient off medication statin medication. Hyperkalemia start on anti hypercalcemic measures with dextrose insulin, albuterol, IV fluids, Lasix Appreciate help from nephrology Time Spent Managing Pts Care (In Minutes): 45
--- NOTE | 2020-02-24 11:35 | P.PN ---
Subjective Date of Service: 02/24/20 Primary Care Provider: Humberto Wells MD Chief Complaint: respiratory failure from adan virus No change condition stable still requiring very high concentrations of oxygen normal electrolytes Review of Systems is unable to be obtained Physical Examination - Vital Signs Temperature: 99.2 F Blood Pressure: 159/64 Pulse: 111 Respirations: 26 Pulse Ox (%): 90 - Physical Exam General: Unresponsive Other Physical/Emotional Findings: Patient remains on BiPAP. - Studies Medications List Reviewed: Yes Assessment & Plan - Problems (Diagnosis) (1) Respiratory failure Current Visit: Yes Status: Acute Plan: Patient's condition remains stable is still requiring at least 90% oxygen all the chest x-ray did show some improvement electrolytes to be addressed by Nephrology he is hypernatremic renal function is better white count was lower yesterday blood pressure is stable repeat adan virus test was positive continues to remain in isolation Dc Decadron increase insulin Qualifiers: Chronicity: acute Physician Review Additional Text: Impression: Acute respiratory distress syndrome secondary to Covid pneumonia Leukocytosis suspect underlying secondary bacterial versus fungal infection: Acute on chronic renal failure stage 3 with hypernatremia and hyperkalemia with ATN related to COVID Subcutaneous emphysema Diabetes mellitus type 2 Essential hypertension Hyperlipidemia Chronic renal disease stage III Elevated liver function Plan: Acute respiratory distress syndrome secondary to Covid pneumonia: Patient remains stable. During the course of his stay patient has received plasma and Remdesivir. ET tube was advanced as per pulmonology. This was attempted but patient desatted. ET tube replaced 2 prior setting. Patient recovered. Repeat x-ray shows better placement. Will discuss further with pulmonology to see if this will require further adjustment. Continue IV steroids. Pulmicort nebs added. Continue to wean off ventilator. Suspect underlying secondary bacterial/fungal infection. Awaiting cultures. Patient on IV antibiotic therapy/oral therapy and IV antifungal. Continue DVT prophylaxis. Patient previously denied by [facility], [facility], [facility] and [facility]. [facility] and [facility] re-attempted today. still no bed availability. Will continue to reach out. Patient still requires improvement in vent settings to be transported if bed available. Will need to consider tracheostomy after 14 days with current ET tube. If still with current settings this would still be very difficult. Nephrology continues to adjust medication. Will discuss with pulmonology, nephrology. Will discuss further with . I will transfer care to the next hospitalist tomorrow. I will go over the plan of care with him. Leukocytosis suspect underlying secondary bacterial versus fungal infection: Continue current antibiotic therapy and antifungal therapy. Await blood, sputum and urine culture results. Acute on chronic renal failure stage 3 with hypernatremia and hyperkalemia with ATN related to COVID: Nephrology continues to adjust input and output. Lasix increased. Subcutaneous emphysema: Will monitor closely. Continue with above Diabetes mellitus type 2: Will check A1c. Continue Accu-Cheks. Will start basal insulin Lantus 10 units b.i.d.. Will adjust accordingly. Essential hypertension: Will provide medication for blood pressure as needed Hyperlipidemia: Medication has been discontinued Elevated liver function: Patient off medication statin medication. Hyperkalemia start on anti hypercalcemic measures with dextrose insulin, albuterol, IV fluids, Lasix Appreciate help from nephrology
[2020-02-24 15:27] LABS: Magnesium 2.3 mg/dL (1.8-2.4); Potassium 5.1 mmol/L (3.5-5.1)
[2020-02-24 19:51] LABS: HBsAG Nonreactive (Nonreactive)
[2020-02-25] MEDS: Meropenem 500 MG in NA CHLORIDE 0.9% 100 ML IV SCH ×2 (00:22→08:12)
[2020-02-25] MEDS: INSULIN -REGULAR HUMAN 50 UNIT/0.5 ML ML SQ SCH ×4 (00:34→17:17)
--- NOTE | 2020-02-25 02:36 | PN ---
Date of Progress Note: 02/24/2020 Chief Complaint: Acute on chronic kidney injury, hyperkalemia, hypernatremia. History Of Present Illness: The patient is on IV fluids. He is on a free water intake via the tube feeding. There is high BUN-creatinine ratio. The patient has nonoliguric urine output. The patient has COVID pneumonia, respiratory failure, acute kidney injury. Hyperkalemia has been controlled. H e received IV calcium gluconate and albuterol. Potassium level slightly improved from 5.7 to 5.1. Physical Examination: VITAL SIGNS: Blood pressure is 120/73, heart rate is 90. CHEST: Crackles bilaterally. HEART: S1 and S2. EXTREMITIES: No edema. Laboratory Data: Hemoglobin 12.7, WBC 18.3, platelet count is 265,000. Chemistry; sodium 141, potassium 5.1, CO2 109, carbon dioxide 37, BUN 66, today creatinine 1.44, gluc ose 255, phosphorus 4.0, calcium 8.0, magnesium 2.3. Impression And Plan: 1.Acute on chronic kidney injury, nonoliguric. Electrolytes are improving. Continue free water flu shes with tube feeding and monitor potassium level. 2.The patient is on multiple antibiotics for pneumonia. He has COVID pneumonitis and pneumonia. Th e patient is on vancomycin. Continue to monitor vancomycin trough level. 3.Respiratory failure per Pulmonary team. 4.The patient will continue Lasix to control volemia. 5.Acute kidney injury with acute tubular necrosis. Renal function is gradually improving. Monitor electrolytes. Adjust treatment accordingly. EB/MODL Voice ID: [id number] Report ID: [id number]
[2020-02-25] MEDS: FENTANYL CITR 100 MCG/2 ML IV PRN ×3 (04:09→14:22)
[2020-02-25] MEDS: propofoL 1,000 MG/100 ML VIAL IV PRN ×3 (05:02→20:54)
[2020-02-25 06:01] LABS: Albumin 1.9 g/dL (3.4-5.0); Bilirubin Total 0.5 mg/dL (0.2-1.0); Protein, Total 6.2 g/dL (6.4-8.2)
[2020-02-25] MEDS: INSULIN GLARGINE 100 UNITS/ML SQ SCH ×2 (08:06→21:24)
[2020-02-25] MEDS: FUROSEMIDE 40 MG/4 ML VIAL IV SCH (08:07)
[2020-02-25] MEDS: ZINC SULFATE 220 MG CAP PO SCH ×2 (08:07→19:57)
[2020-02-25] MEDS: THIAMINE HCL 100 MG TABLET PO SCH (08:08)
[2020-02-25] MEDS: ASCORBIC ACID 500 MG TABLET PO SCH (08:08)
[2020-02-25] MEDS: APIXABAN 5 MG TABLET PO SCH ×2 (08:08→19:57)
[2020-02-25] MEDS: FLUCONAZOLE 100 MG TAB PO SCH (08:09)
[2020-02-25] MEDS: ACETYLCYST 20% 800 MG/4 ML VIAL PO SCH (08:11)
[2020-02-25] MEDS: FAMOTIDINE 20 MG TAB PO SCH (08:11)
[2020-02-25] MEDS: BUDESONIDE 0.5 MG/2 ML NEB NEB SCH ×2 (08:44→20:00)
[2020-02-25] MEDS: ALBUTEROL 2.5 MG/3 ML NEB SOL NEB SCH ×2 (08:44→20:00)
--- NOTE | 2020-02-25 10:46 | P.PN ---
Subjective Date of Service: 02/25/20 Primary Care Provider: Humberto Wells MD Chief Complaint: respiratory failure from adan virus Subjective: No new changes, Improving Review of Systems is unable to be obtained Physical Examination - Vital Signs Temperature: 99.1 F Blood Pressure: 152/67 Pulse: 118 Respirations: 16 Pulse Ox (%): 90 - Physical Exam General: Other (Sedated ) HEENT: Atraumatic, Normocephalic Neck: Supple Respiratory: Diminished, Crackles/rales Cardiovascular: Normal pulses, Regular rate/rhythm, Normal S1 S2 Capillary refill: <2 Seconds Gastrointestinal: Soft and benign, W/out hepatosplenomegaly Musculoskeletal: No clubbing, No swelling Integumentary: No rashes Neurological: Other Lymphatics: No axilla or inguinal lymphadenopathy - Studies Medications List Reviewed: Yes Assessment & Plan - Problems (Diagnosis) (1) Pneumonia due to human coronavirus Current Visit: Yes Status: Acute (2) Respiratory failure Current Visit: Yes Status: Acute Plan: Assessment and plan Acute respiratory distress syndrome secondary to Covid pneumonia Leukocytosis suspect underlying secondary bacterial versus fungal infection: Acute on chronic renal failure stage 3 with hypernatremia and hyperkalemia with ATN related to COVID Subcutaneous emphysema Diabetes mellitus type 2 Essential hypertension Hyperlipidemia Chronic renal disease stage III Elevated liver function Plan: Acute respiratory distress syndrome secondary to Covid pneumonia: Intubated on mechanical ventilator support Appreciate help from pulmonology Currently stable on ventilator Will try to wean off ventilator. Status post convalescent plasma and Remdesivir. Appreciate help from pulmonology Held IV steroids due to hyperglycemia Pulmicort nebs Cultures negative so far Continue anticoagulation May need tracheostomy as he is not ready yet to be weaned off ventilator Leukocytosis suspect underlying secondary bacterial versus fungal infection: Continue current treatment Monitor blood, sputum and urine culture results. Acute on chronic renal failure stage 3 with hypernatremia and hyperkalemia with ATN related to COVID: Appreciate help from Nephrology Monitor Is& Os Optimize Lasix dosage. Hypernatremia Is better than yesterday increased the free water flushes Monitor closely BMP daily Appreciate help from nephrology Diabetes mellitus type 2: Continue Accu-Cheks. On basal insulin as well Will adjust Essential hypertension: Antihypertensives titrated Hyperlipidemia: Statin held due to elevated LFTs Elevated liver function: Patient off medication statin medication. Will monitor LFTs Hyperkalemia Resolved taper off propofol Monitor closely Disposition : Prognosis guarded, patient may need tracheostomy. May need to be transferred to LTAC Qualifiers: Chronicity: acute Time Spent Managing Pts Care (In Minutes): 45
[2020-02-25] MEDS: VANCOMYCIN 2 GM in NA CHLORIDE 0.9% 500 ML IVPB SCH (10:51)
[2020-02-25] MEDS ORDERED: MIDAZOLAM HCL 100 MG in NA CHLORIDE 0.9% 80 ML IV PRN (11:37)
--- NOTE | 2020-02-25 11:44 | P.PN ---
Subjective Date of Service: 03/05/20 Primary Care Provider: Humberto Wells MD Chief Complaint: respiratory failure from adan virus patient is still requiring high concentration of oxygen no change he has been a propofol drip for the past 2 weeks triglycerides are elevated renal function is improving Review of Systems is unable to be obtained Physical Examination - Vital Signs Temperature: 99.1 F Blood Pressure: 138/64 Pulse: 120 Respirations: 25 Pulse Ox (%): 92 - Physical Exam General: Unresponsive - Studies Medications List Reviewed: Yes Assessment & Plan - Problems (Diagnosis) (1) Respiratory failure Status: Acute Plan: patient has ARDS is stable is requiring 90% FiO2 for now will loom changeover operator to IV Versed said renal function is improving patient's triglycerides are elevated chest x-ray labs ordered Nimbex p.r.n. possible trach. Pt deveopled distress today with tachcardia and reduced lung volumes Vent adjusted. Did not tolerated AC TV, Now back of PS. Fentanyl helped. Weanoff propofola and try versed. Spoke to . Trach as per ENT Qualifiers: Chronicity: acute
[2020-02-25] MEDS: CISATRACURIUM INJECTION 2 MG/ML (10 ML Vial) IV SCH ×4 (12:35→23:45)
--- NOTE | 2020-02-25 13:07 | RAD REPORT ---
EXAM DESCRIPTION: RAD - Chest Single View - 02/25/2020 12:48 pm CLINICAL HISTORY: pneumonia respiratory failure Chest pain. COMPARISON: Chest Single View dated 02/22/2020; Chest Single View dated 02/20/2020; Chest Single View dated 02/18/2020; Chest Single View dated 02/15/2020 FINDINGS: Portable technique limits examination quality. Tip of the ET tube is above the jonel. Enteric tube coils in the stomach. Right-sided PICC line is u nchanged in position. Interstitial lung opacities bilaterally appear essentially unchanged. The heart is mildly enlarged in size. IMPRESSION: Stable chest since 02/22/2020.
[2020-02-25 13:14] LABS: Hematocrit 38.8 % (39.6-49.0); MPV 9.1 fL (7.6-11.3); RBC Red Blood Cell Count 4.26 M/uL (4.33-5.43)
[2020-02-25] MEDS ORDERED: LABETALOL 20 MG/4ML SYRINGE IV ONE (13:30)
[2020-02-25] MEDS ORDERED: MIDAZOLAM HCL 100 MG in D5W 80 ML IV PRN (14:07)
--- NOTE | 2020-02-25 14:25 | P.PN ---
Subjective Date of Service: 02/25/20 Primary Care Provider: Humberto Wells MD Chief Complaint: respiratory failure from adan virus Subjective Pt with resp. failure due to COVID 19, intubated, course complicated by subcutaneous emphysema , nephrology consulted for MANAN Today tachycardic today requires more O2 today Na 148 , will change IV meds to D5 based , cont current free water Physical exam general: sedated and intubated Neck; Supple, No elevated JVD heart: RRR, normal S1,2 no murmur or rub Chest: CTAB, no rlaes or wheezes Abdomen: Soft , Nt Extremities trace Lt hand swelling Assessment And Plan: Acute kidney injury improving possibly due to COVID Nephropathy Cr stable , but BUN trending up which is could be due to diuresis and steroids Hypernatremia Na 148 , will change IV meds to D5 based , cont current free water Respiratory failure intubated due to COVID 19 COVID 19 Pneumonia cont supportive care S/P plama and Remdesvir DM as per PCP total time spent 55 min Prognosis guarded Physical Examination - Vital Signs Temperature: 99.1 F Blood Pressure: 154/78 Pulse: 119 Respirations: 30 Pulse Ox (%): 88 - Physical Exam Other Physical/Emotional Findings: I did not go physically in his room today. I was able to visualize and speak to him through the window. He seemed okay. He did not appear in any distress. Patient on BiPAP. Patient using less Fi02. Patient reports he is feeling better. - Studies Medications List Reviewed: Yes
[2020-02-25] MEDS: NEPRO 1,000 ML BOT RTH PRN (16:21)
[2020-02-25] MEDS: MEROPENEM IV SCH (17:08)
[2020-02-25] MEDS: NA CHLORIDE 0.9% IV SCH (17:08)
[2020-02-25] MEDS: ACETAMINOPHEN 325 MG TABLET PO PRN (19:59)
[2020-02-26] MEDS: NA CHLORIDE 0.9% IV SCH ×3 (01:18→16:19)
[2020-02-26] MEDS: MEROPENEM IV SCH ×3 (01:18→16:19)
[2020-02-26] MEDS: propofoL 1,000 MG/100 ML VIAL IV PRN ×3 (01:40→20:14)
[2020-02-26] MEDS: CISATRACURIUM INJECTION 2 MG/ML (10 ML Vial) IV SCH ×3 (03:25→11:43)
[2020-02-26] MEDS ORDERED: dexAMETHasone 10 MG/ML VIAL IV SCH ×2 (03:27→09:00)
[2020-02-26 03:52] LABS: Arterial Blood Carboxyhemoglob 1.7 % (0-1.5); Blood Gas Oxyhemoglobin 84.7 % (94-97); Blood O2 Saturation 87.2 % (92-98.5)
[2020-02-26 04:22] LABS: Basophils % 0.7 % (0-1.3); Hematocrit 38.3 % (39.6-49.0); Lymphocytes % 4.2 % (15.3-44.8); MPV 8.7 fL (7.6-11.3); RBC Red Blood Cell Count 4.16 M/uL (4.33-5.43)
[2020-02-26 04:44] LABS: Albumin 1.8 g/dL (3.4-5.0); Bilirubin Total 0.7 mg/dL (0.2-1.0); Potassium 4.9 mmol/L (3.5-5.1)
[2020-02-26 05:12] LABS: Blood Morphology Comment NOT SEEN (NOT SEEN); Platelet Estimate ADEQ
[2020-02-26] MEDS: INSULIN -REGULAR HUMAN 50 UNIT/0.5 ML ML SQ SCH ×4 (06:00→17:45)
[2020-02-26] MEDS: FUROSEMIDE 40 MG/4 ML VIAL IV SCH (07:51)
[2020-02-26] MEDS: INSULIN GLARGINE 100 UNITS/ML SQ SCH ×2 (07:52→20:14)
[2020-02-26] MEDS: FLUCONAZOLE 100 MG TAB PO SCH (07:52)
[2020-02-26] MEDS: ZINC SULFATE 220 MG CAP PO SCH ×2 (07:52→20:17)
[2020-02-26] MEDS: THIAMINE HCL 100 MG TABLET PO SCH (07:54)
[2020-02-26] MEDS: ACETAMINOPHEN 325 MG TABLET PO PRN (07:54)
[2020-02-26] MEDS: ASCORBIC ACID 500 MG TABLET PO SCH (07:54)
[2020-02-26] MEDS: FENTANYL CITR 100 MCG/2 ML IV PRN ×2 (07:54→22:00)
[2020-02-26] MEDS: APIXABAN 5 MG TABLET PO SCH ×2 (07:54→20:13)
[2020-02-26] MEDS: ALBUTEROL 2.5 MG/3 ML NEB SOL NEB SCH ×2 (08:26→20:18)
[2020-02-26] MEDS: BUDESONIDE 0.5 MG/2 ML NEB NEB SCH ×2 (08:26→20:18)
[2020-02-26] MEDS: FAMOTIDINE 20 MG TAB PO SCH (09:00)
[2020-02-26] MEDS: carvediloL 3.125 MG TAB PO SCH ×2 (09:05→16:49)
--- NOTE | 2020-02-26 09:38 | P.PN ---
Subjective Date of Service: 02/26/20 Primary Care Provider: Humberto Wells MD Chief Complaint: respiratory failure from adan virus Subjective: Worsening, Other Review of Systems is unable to be obtained Physical Examination - Vital Signs Temperature: 100.9 F Blood Pressure: 155/60 Pulse: 107 Respirations: 35 Pulse Ox (%): 88 - Physical Exam General: Other (Sedated , Intubated and on mechanical support ) HEENT: Atraumatic, Normocephalic Neck: Supple Respiratory: Diminished, Crackles/rales Cardiovascular: Normal S1 S2, Other (Tachycardia) Capillary refill: <2 Seconds Gastrointestinal: Soft and benign, W/out hepatosplenomegaly Musculoskeletal: No clubbing, No swelling Integumentary: No rashes Neurological: Other (Sedated ) Lymphatics: No axilla or inguinal lymphadenopathy Other Physical/Emotional Findings: I did not go physically in his room today. I was able to visualize and speak to him through the window. He seemed okay. He did not appear in any distress. Patient on BiPAP. Patient using less Fi02. Patient reports he is feeling better. - Studies Medications List Reviewed: Yes Assessment & Plan - Problems (Diagnosis) (1) Pneumonia due to human coronavirus Current Visit: Yes Status: Acute (2) Respiratory failure Current Visit: Yes Status: Acute Plan: Assessment and plan Acute respiratory distress syndrome secondary to Covid pneumonia Leukocytosis suspect underlying secondary bacterial versus fungal infection: Acute on chronic renal failure stage 3 with hypernatremia and hyperkalemia with ATN related to COVID Subcutaneous emphysema Diabetes mellitus type 2 Essential hypertension Hyperlipidemia Chronic renal disease stage III Elevated liver function Plan: Acute respiratory distress syndrome secondary to Covid pneumonia: Intubated on mechanical ventilator support Appreciate help from pulmonology Currently on ventilator, had intermittent episodes of hypoxia Ventilator settings adjusted Status post convalescent plasma and Remdesivir. Appreciate help from pulmonology Pulmicort nebs Cultures negative so far Continue anticoagulation Leukocytosis suspect underlying secondary bacterial versus fungal infection: Continue current treatment Monitor blood, sputum and urine culture results. Acute on chronic renal failure stage 3 with hypernatremia and hyperkalemia with ATN related to COVID: Appreciate help from Nephrology Monitor Is& Os Optimize Lasix dosage. Hypernatremia increased the free water flushes Monitor closely BMP daily Appreciate help from nephrology Diabetes mellitus type 2: Continue Accu-Cheks. On basal insulin as well Will adjust Essential hypertension: Antihypertensives titrated Hyperlipidemia: Statin held due to elevated LFTs Elevated liver function: Patient off medication statin medication. Will monitor LFTs Hyperkalemia Resolved taper off propofol Monitor closely Disposition : Prognosis guarded, patient may need tracheostomy. Discussed in detail with the and the family Discuss about the grave prognosis Family will decide about the code status and let us know Overall prognosis is guarded Qualifiers: Chronicity: acute Time Spent Managing Pts Care (In Minutes): 46
[2020-02-26] MEDS ORDERED: D5W IVPB SCH (10:00)
[2020-02-26] MEDS ORDERED: VANCOMYCIN IVPB SCH (10:00)
--- NOTE | 2020-02-26 11:32 | P.PN ---
Subjective Date of Service: 03/05/20 Primary Care Provider: Humberto Wells MD Chief Complaint: respiratory failure from adan virus Patient's condition is worsening he has had significant episodes of desaturation last night respiratory therapist at trying to adjust his ventilator without much clock is on very high concentrations of oxygen this now running a high temperature cold extremity Review of Systems is unable to be obtained Physical Examination - Vital Signs Temperature: 98.6 F Blood Pressure: 102/52 Pulse: 87 Respirations: 32 Pulse Ox (%): 80 - Physical Exam General: Unresponsive Respiratory: Clear to auscultation bilaterally, Diminished Cardiovascular: Regular rate/rhythm, Edema Other Physical/Emotional Findings: I - Studies Medications List Reviewed: Yes Assessment & Plan - Problems (Diagnosis) (1) Respiratory failure Status: Acute Plan: Patient has refractory respiratory failure not improve acquiring high concentrations of oxygen and modes of ventilator settings have been use by respiratory therapist not running a fever unable to wean off the propofol is not becoming hypercapnic prognosis very poor the repeat chest x-ray did not show any evidence of pneumothorax Qualifiers: Chronicity: acute Physician Review Additional Text: I
--- NOTE | 2020-02-26 13:42 | RAD REPORT ---
EXAM DESCRIPTION: CHEST, ONE VIEW XR CLINICAL HISTORY: Vent COMPARISON: 02/15/2020 TECHNIQUE: AP Chest. FINDINGS: Endotracheal tube, feeding tube and right subclavian PICC line appears stable. Heart is normal in size. Normal cardiomediastinal contours. There is pulmonary vascular congestion. H azy bilateral opacities compatible with pneumonia. No pneumothorax. IMPRESSION: 1. Pulmonary vascular congestion. Bilateral hazy pulmonary infiltrates. Electronically signed by: Nida Vu DO 02/26/2020 5:53 AM CDT Due to temporary technical issues with the PACS/Fluency reporting system, reports are being signed by the in house radiologist without review as a courtesy to ensure prompt reporting. The interpreting r adiologist is fully responsible for the content of the report.
[2020-02-26] MEDS ORDERED: CISATRACURIUM BESYLATE 40 MG in NA CHLORIDE 0.9% 80 ML IV PRN (14:00)
--- NOTE | 2020-02-26 14:10 | CON ---
Reason For Consultation: Tracheostomy request. History Of Present Illness: Mr. Tobin Alfonso is a 60-year-old who was admitted on February 08, 2020 with shortness of breath. He had a COVID-19 test, which was confirmed positive. He was initially treated with nasal cannula and steroids for shortness of breath. On hospital day 1, he required initiation of BiPAP for respiratory support. On hospital day 7, he required intubation due to worsening status despite BiPAP support. The details of his intubation are not easily discernible from the medical record available to the computer, but he may have had difficult intubation. During the week of February 17, the medical record indicates attempts at transferring the patient to a higher level of care for possible ECMO treatment. The patient was denied at [facility] due to lack of available beds and equipment. He has been treated with antiviral therapy, convalescent plasma, and IV steroids. Initial consult was requested on February 22. I reviewed the chart on February 23 with the above-noted findings. Due to COVID positivity and issues related to medical decision making, I did not personally examined the patient, but was able to review the medical record. The record indicates the patient was intubated. He had oxygen saturations in the low 90s with an inspired fraction of oxygen of 85% and a positive end expiratory pressure of 15. The record also indicates additional COVID positivity, leukocytosis at 18.3, and initial elevation of his D-dimer at 1200 at the time of admission, elevated blood sugars and elevated serum sodium and potassium, a creatinine of 1.47, estimated GFR of 49, albumin of 1.9. During his hospitalization, he has had borderline low TSH and an elevated parathyroid hormone of 170. His calcium levels have been in the low to normal range. His procalcitonin on hospital day 1 was 3.59. Assessment and Recommendations: On February 23, I discussed with Dr. Serna regarding current recommendations for tracheostomy in COVID positive patients. Due to the overall high morbidity of the severely ill patients, early tracheostomy is not recommended as there is little evidence to support improval in survival or decrease in hospital stay. Over the last 48 hours, he has continued to struggle from a respiratory standpoint and at the time of this dictation is currently on 100% oxygen. Over the last 24-48 hours, his need for oxygen has increased from 85 to 90 to 95 and now 100%. His oxygen saturation over the last 12 hours has been in the mid 80s predominantly. As of today's dictation, he has been intubated for 11 days due to his high oxygen requirement, high PEEP requirements, he would be a very high risk tracheostomy. During the surgical procedure, particularly in a COVID positive patient, the protocol would be to approach the surgical site and isolate the upper trachea. Prior to incision of the trachea, we would cease all ventilation to reduce aerosolization of respiratory particles. We would then, in an expeditious manner, incise the trachea, retracte the endotracheal tube, place the tracheostomy - inflating the cuff and reconnecting the circuit before resuming ventilation. To safely do this, the patient would need to be able to tolerate 45-60 seconds of complete apnea and complete loss of all positive airway pressure. Given the patient's clinical decompensation over the last 24 hours, I do not recommend tracheostomy in the short term. I will continue to follow the patient from a clinical standpoint. If we see that he is having some recovery of his respiratory function and his oxygen requirements and PEEP requirements are improving, we can reconsider a surgical airway. SHYAM/TESFAYE Voice ID: [id number] Report ID: [id number] MARYLOU
--- NOTE | 2020-02-26 15:40 | PN ---
Date of Progress Note: 02/26/2020 History Of Present Illness: The patient was admitted with COVID pneumonia, developed acute kidney in jury secondary to COVID nephropathy, nonoliguric. The patient maintained on diuresis. The patient o hanh the night had significant hypoxemia even on FiO2 100%, still obtaining 80% of saturation with the patient on bed. Physical Examination: Vital Signs: Blood pressure 115/60, pulse of 107, T-max 100.9. The patient still has good urine out put of 2400. Chest: Crackles bilateral. Heart: S1, S2. Regular. Abdomen: Soft, nontender. Extremity: No edema. Neuro: The patient sedated. Laboratory Data: WBC 24.3, platelets 190, hemoglobin 12.3. Sodium 147, potassium 4.9, bicarb 37, BU N 56, creatinine 1.4, GFR of 51, calcium 9.1, ALT 187, and AST 90. Current Medications: The patient on, include; 1.Fluconazole. 2.Meropenem. 3.Vancomycin. 4.Eliquis. 5.Carvedilol 3.125 b.i.d. 6.Labetalol. 7.Midazolam. 8.Propofol. 9.Lasix 40. 10.Zinc sulfate. 11.Pepcid. 12.Insulin. 13.Fentanyl. Assessment And Plan: Acute kidney injury secondary to COVID nephropathy, oliguric, normal volume. A gain I continue the patient on current dose of Lasix to establish for the patient better volume contr ol. Hopefully that will help the oxygenation. We will keep the patient on the dry side. 1.Hypernatremia. Continue free water. 2.Hypertension, controlled, optimal. Continue current medication. 3.COVID pneumonia, respiratory failure. Continue with ongoing support. 4.Bacterial pneumonia superimposed with COVID pneumonia. Continue current treatment dose appropriat e. 5.Multiorgan failure. Continue supportive care. 6.Diabetes as by primary. MA/MODL Voice ID: [id number] Report ID: [id number]
[2020-02-26] MEDS ORDERED: CISATRACURIUM BESYLATE 100 MG in NA CHLORIDE 0.9% 200 ML IV PRN (15:46)
[2020-02-26 16:10] LABS: Hepatitis C Virus RNA (PCR)log <1.18 log IU/mL
[2020-02-26] MEDS ORDERED: CISATRACURIUM BESYLATE 100 MG in NA CHLORIDE 0.9% 200 ML IV ONE (18:15)
[2020-02-26] MEDS: dexAMETHasone 4 MG/ML VIAL IV SCH (20:13)
[2020-02-26] MEDS: FAMOTIDINE 20 MG/2 ML VIAL IV SCH (20:14)
[2020-02-26] MEDS: MIDAZOLAM HCL 2 MG/2 ML INJ IV PRN (21:03)
[2020-02-27] MEDS: MEROPENEM IV SCH ×3 (00:33→21:16)
[2020-02-27] MEDS: NA CHLORIDE 0.9% IV SCH ×3 (00:33→21:16)
[2020-02-27] MEDS: INSULIN -REGULAR HUMAN 50 UNIT/0.5 ML ML SQ SCH ×4 (00:56→17:11)
[2020-02-27] MEDS: LORazepam 2 MG/ML VIAL IV PRN (01:07)
[2020-02-27] MEDS: propofoL 1,000 MG/100 ML VIAL IV PRN ×4 (03:56→21:15)
[2020-02-27] MEDS: NEPRO 1,000 ML BOT RTH PRN (03:59)
[2020-02-27 05:55] LABS: Absolute Lymphocytes (CBC) 0.4 K/uL (0.7-4.9); Lymphocytes % 2.2 % (15.3-44.8); MPV 9.1 fL (7.6-11.3); RBC Red Blood Cell Count 3.53 M/uL (4.33-5.43)
[2020-02-27] MEDS: carvediloL 3.125 MG TAB PO SCH ×2 (06:00→17:12)
[2020-02-27 06:10] LABS: Potassium 4.7 mmol/L (3.5-5.1)
[2020-02-27] MEDS: BUDESONIDE 0.5 MG/2 ML NEB NEB SCH ×2 (08:00→20:05)
[2020-02-27] MEDS: ALBUTEROL 2.5 MG/3 ML NEB SOL NEB SCH ×2 (08:00→20:05)
--- NOTE | 2020-02-27 08:14 | P.PN ---
Subjective Date of Service: 02/27/20 Primary Care Provider: Humberto Wells MD Chief Complaint: respiratory failure from adan virus Subjective: No new changes (Still intubated on mechanical ventilator support) Review of Systems 10-point ROS is otherwise unremarkable Physical Examination - Vital Signs Temperature: 99.1 F Blood Pressure: 101/53 Pulse: 78 Respirations: 20 Pulse Ox (%): 89 - Physical Exam General: Other (Sedated) HEENT: Atraumatic, PERRLA Neck: Supple Respiratory: Diminished, Crackles/rales Cardiovascular: Normal S1 S2, Other (Tachycardic) Capillary refill: <2 Seconds Gastrointestinal: Soft and benign, W/out hepatosplenomegaly Musculoskeletal: No clubbing, No swelling Integumentary: No rashes Neurological: Other (Sedated) Lymphatics: No axilla or inguinal lymphadenopathy Other Physical/Emotional Findings: I did not go physically in his room today. I was able to visualize and speak to him through the window. He seemed okay. He did not appear in any distress. Patient on BiPAP. Patient using less Fi02. Patient reports he is feeling better. - Studies Medications List Reviewed: Yes Assessment & Plan - Problems (Diagnosis) (1) Pneumonia due to human coronavirus Current Visit: Yes Status: Acute (2) Respiratory failure Current Visit: Yes Status: Acute Plan: Assessment and plan Acute respiratory distress syndrome secondary to Covid pneumonia Leukocytosis suspect underlying secondary bacterial versus fungal infection: Acute on chronic renal failure stage 3 with hypernatremia and hyperkalemia with ATN related to COVID Subcutaneous emphysema Diabetes mellitus type 2 Essential hypertension Hyperlipidemia Chronic renal disease stage III Elevated liver function Plan: Acute respiratory distress syndrome secondary to Covid pneumonia: Intubated on mechanical ventilator support Appreciate help from pulmonology Currently on ventilator, sedated and I also added on nimbex Ventilator settings adjusted Status post convalescent plasma and Remdesivir. Appreciate help from pulmonology Pulmicort nebs Cultures negative so far Continue anticoagulation Leukocytosis suspect underlying secondary bacterial versus fungal infection: Continue current treatment Monitor blood, sputum and urine culture results. Acute on chronic renal failure stage 3 with hypernatremia and hyperkalemia with ATN related to COVID: Appreciate help from Nephrology Monitor Is& Os Optimize Lasix dosage. Hypernatremia increased the free water flushes Monitor closely BMP daily Appreciate help from nephrology Diabetes mellitus type 2: Continue Accu-Cheks. On basal insulin as well Will adjust Essential hypertension: Antihypertensives titrated Hyperlipidemia: Statin held due to elevated LFTs Elevated liver function: Patient off medication statin medication. Will monitor LFTs Hyperkalemia Resolved taper off propofol Monitor closely Disposition : Prognosis guarded, patient may need tracheostomy. Discussed in detail with the and the family Discuss about the grave prognosis Family will decide about the code status Overall prognosis is guarded Qualifiers: Chronicity: acute Time Spent Managing Pts Care (In Minutes): 42
--- NOTE | 2020-02-27 08:30 | P.PN ---
Subjective Date of Service: 02/27/20 Primary Care Provider: Humberto Wells MD Chief Complaint: respiratory failure from adan virus No change patient is on IV a paralytic medication still 100% oxygen Review of Systems is unable to be obtained Physical Examination - Vital Signs Temperature: 99.1 F Blood Pressure: 101/53 Pulse: 78 Respirations: 20 Pulse Ox (%): 89 - Physical Exam Other Physical/Emotional Findings: I did not go physically in his room today. I was able to visualize and speak to him through the window. He seemed okay. He did not appear in any distress. Patient on BiPAP. Patient using less Fi02. Patient reports he is feeling better. - Studies Medications List Reviewed: Yes Assessment & Plan - Problems (Diagnosis) (1) Respiratory failure Current Visit: Yes Status: Acute Plan: Respiratory failure from adan virus no change in his condition still requiring 100% oxygen renal function is slightly worse white count is declining patient is an 19 of peep has not had any significant episodes of desats last night since I paralyzed him is back on propofol had some fever Qualifiers: Chronicity: acute Physician Review Additional Text: I
[2020-02-27] MEDS: dexAMETHasone 4 MG/ML VIAL IV SCH ×2 (09:24→21:15)
[2020-02-27] MEDS: APIXABAN 5 MG TABLET PO SCH ×2 (09:25→21:15)
[2020-02-27] MEDS: FAMOTIDINE 20 MG/2 ML VIAL IV SCH (09:25)
[2020-02-27] MEDS: INSULIN GLARGINE 100 UNITS/ML SQ SCH ×2 (09:25→21:16)
[2020-02-27] MEDS: THIAMINE HCL 100 MG TABLET PO SCH (09:25)
[2020-02-27] MEDS: FUROSEMIDE 40 MG/4 ML VIAL IV SCH ×2 (09:25→21:15)
[2020-02-27] MEDS: ASCORBIC ACID 500 MG TABLET PO SCH (09:25)
[2020-02-27] MEDS: ZINC SULFATE 220 MG CAP PO SCH ×2 (09:26→21:15)
[2020-02-27] MEDS: FLUCONAZOLE 400 MG IVPB 400 MG/200 ML BAG IV SCH (09:27)
[2020-02-27] MEDS ORDERED: D5W IVPB SCH ×2 (10:00→23:00)
[2020-02-27] MEDS ORDERED: VANCOMYCIN IVPB SCH ×2 (10:00→23:00)
--- NOTE | 2020-02-27 11:19 | PN ---
Date of Progress Note: 02/27/2020 Subjective: The patient was admitted with COVID pneumonia. Developed acute kidney injury. Patient has respiratory failure. Maintained on vent. Required high FiO2. Develops subcutaneous emphysema. Physical Examination: Vital Signs: When I saw the patient, blood pressure 101/53, pulse of 78 afebrile. The patient had g ood urine output of 2500. Chest: Crackles bilateral. Heart: S1, S2. Systolic murmur. Abdomen: Soft. Nontender. Extremities: Trace edema. Neuro: The patient is fully sedated, on Nimbex and propofol. The patient had dark bloody urine. Laboratory Data: WBC 18.5, H and H 10.4 and 32. Sodium 142, potassium 4.7, bicarb 34, BUN 89, creat inine 2.3, and calcium 8.8. Current Medications: The patient on include fluconazole, meropenem, vancomycin, breathing treatment, sedation, Eliquis 5 b.i.d., carvedilol 3.125 b.i.d., Lasix 40 daily, dexamethasone, Zofran. Assessment And Plan: 1.Acute kidney injury secondary to COVID pneumonia/toxic acute tubular necrosis secondary to sepsis, nonoliguric, looked to me on the wet side. I am going to go ahead and increase Lasix to 40 mg, and we will continue to monitor the patient. Given the rise in the creatinine, we will follow up on the vanc trough. Continue current dose for the time being. 2.Hypertension, currently controlled, optimal. We will continue current medication. Increase Lasix . 3.Anemia, stable. No need for any IV iron currently giving the severe inflammation that the patient had. 4.COVID pneumonia/bacterial pneumonia. Patient on ledezma coverage. We will follow up with Pulmonary. 5.Respiratory failure. Continue vent support. 6.Subcutaneous pneumothorax. Follow up with Pulmonary. MA/MODL Voice ID: [id number] Report ID: [id number]
[2020-02-27] MEDS: CISATRACURIUM BESYLATE IV PRN (21:15)
[2020-02-27] MEDS: D5W IV PRN (21:15)
[2020-02-27 23:04] LABS: Albumin, (SPE) 2.3 g/dL (3.8-4.8); Alpha-1-Globulins 0.5 g/dL (0.2-0.3); Alpha-2-Globulins 1.3 g/dL (0.5-0.9); Gamma Globulins 1.3 g/dL (0.8-1.7); INTERPRETATION REPORT
[2020-02-28] MEDS: INSULIN -REGULAR HUMAN 50 UNIT/0.5 ML ML SQ SCH ×4 (00:47→17:20)
[2020-02-28] MEDS: propofoL 1,000 MG/100 ML VIAL IV PRN ×3 (04:04→15:54)
[2020-02-28 05:07] LABS: Absolute Lymphocytes (CBC) 0.3 K/uL (0.7-4.9); Basophils % 0.4 % (0-1.3); Lymphocytes % 1.8 % (15.3-44.8); MPV 9.3 fL (7.6-11.3); RBC Red Blood Cell Count 3.42 M/uL (4.33-5.43)
[2020-02-28 05:24] LABS: Potassium 4.5 mmol/L (3.5-5.1)
[2020-02-28] MEDS: carvediloL 3.125 MG TAB PO SCH ×2 (06:00→17:20)
[2020-02-28] MEDS: BUDESONIDE 0.5 MG/2 ML NEB NEB SCH ×2 (07:36→20:00)
[2020-02-28] MEDS: ALBUTEROL 2.5 MG/3 ML NEB SOL NEB SCH ×2 (07:36→20:00)
[2020-02-28] MEDS: FUROSEMIDE 40 MG/4 ML VIAL IV SCH ×2 (09:07→20:57)
[2020-02-28] MEDS: INSULIN GLARGINE 100 UNITS/ML SQ SCH ×2 (09:07→20:56)
[2020-02-28] MEDS: FLUCONAZOLE 400 MG IVPB 400 MG/200 ML BAG IV SCH (09:07)
[2020-02-28] MEDS: dexAMETHasone 4 MG/ML VIAL IV SCH ×2 (09:07→20:55)
[2020-02-28] MEDS: APIXABAN 5 MG TABLET PO SCH ×2 (09:07→20:55)
[2020-02-28] MEDS: ZINC SULFATE 220 MG CAP PO SCH ×2 (09:08→20:58)
[2020-02-28] MEDS: FAMOTIDINE 20 MG/2 ML VIAL IV SCH (09:08)
[2020-02-28] MEDS: THIAMINE HCL 100 MG TABLET PO SCH (09:08)
[2020-02-28] MEDS: ASCORBIC ACID 500 MG TABLET PO SCH (09:09)
[2020-02-28] MEDS: MEROPENEM IV SCH ×2 (09:16→20:57)
[2020-02-28] MEDS: NA CHLORIDE 0.9% IV SCH ×2 (09:16→20:57)
--- NOTE | 2020-02-28 09:54 | P.PN ---
Subjective Date of Service: 02/28/20 Primary Care Provider: Humberto Wells MD Chief Complaint: respiratory failure from adan virus Subjective: No new changes, Other (Patient still on ventilator Not responding well to weaning) Review of Systems is unable to be obtained Physical Examination - Vital Signs Temperature: 97.6 F Blood Pressure: 103/59 Pulse: 87 Respirations: 20 Pulse Ox (%): 95 - Physical Exam General: Other (Sedated ) HEENT: Atraumatic, Normocephalic Neck: Supple Respiratory: Diminished, Crackles/rales Cardiovascular: Normal pulses, Regular rate/rhythm, Normal S1 S2 Capillary refill: <2 Seconds Gastrointestinal: Soft and benign, W/out hepatosplenomegaly Musculoskeletal: No clubbing, No swelling Integumentary: No rashes Neurological: Other (Sedated ) Urinary: Other (No bladder distention) Other Physical/Emotional Findings: I did not go physically in his room today. I was able to visualize and speak to him through the window. He seemed okay. He did not appear in any distress. Patient on BiPAP. Patient using less Fi02. Patient reports he is feeling better. - Studies Laboratory Last Values WBC 12.1 K/uL (4.3-10.9) H D 02/09/20 04:50 RBC 5.14 M/uL (4.33-5.43) 02/09/20 04:50 Hgb 15.2 g/dL (13.6-17.9) 02/09/20 04:50 Hct 45.7 % (39.6-49.0) 02/09/20 04:50 MCV 88.9 fL (80-100) 02/09/20 04:50 MCH 29.5 pg (27.0-35.0) 02/09/20 04:50 MCHC 33.2 g/dL (32.0-36.0) 02/09/20 04:50 RDW 14.4 % (12.1-15.2) 02/09/20 04:50 Plt Count 290 K/uL (152-406) 02/09/20 04:50 MPV 8.2 fL (7.6-11.3) 02/09/20 04:50 Neutrophils % 94.4 % (41.7-73.7) H 02/09/20 04:50 Lymphocytes % 2.8 % (15.3-44.8) L 02/09/20 04:50 Monocytes % 2.8 % (3.3-12.3) L 02/09/20 04:50 Eosinophils % 0.0 % (0-4.4) 02/09/20 04:50 Basophils % 0.0 % (0-1.3) 02/09/20 04:50 Absolute Neutrophils 11.4 K/uL (1.8-8.0) H 02/09/20 04:50 Absolute Lymphocytes 0.3 K/uL (0.7-4.9) L 02/09/20 04:50 Absolute Monocytes 0.3 K/uL (0.1-1.3) 02/09/20 04:50 Absolute Eosinophils 0.0 K/uL (0-0.5) 02/09/20 04:50 Absolute Basophils 0.0 K/uL (0-0.5) 02/09/20 04:50 Morphology Comment Not seen (NOT SEEN) 02/08/20 15:48 PT 15.9 SECONDS (9.5-12.5) H 02/09/20 04:50 INR 1.36 02/09/20 04:50 APTT 35.9 SECONDS (24.3-36.9) 02/09/20 04:50 D-Dimer 1209 FEUng/mL (<500) H* 02/09/20 04:50 Sodium Cancelled 02/09/20 05:00 Potassium Cancelled 02/09/20 05:00 Chloride Cancelled 02/09/20 05:00 Carbon Dioxide Cancelled 02/09/20 05:00 BUN Cancelled 02/09/20 05:00 Creatinine Cancelled 02/09/20 05:00 Estimated GFR Cancelled 02/09/20 05:00 Glucose Cancelled 02/09/20 05:00 Lactic Acid 1.9 mmol/L (0.4-2.0) 02/09/20 04:50 Calcium Cancelled 02/09/20 05:00 Phosphorus 1.4 mg/dL (2.5-4.9) L 02/09/20 04:50 Magnesium 2.3 mg/dL (1.8-2.4) 02/09/20 04:50 Ferritin 826.9 ng/mL (26-388) H 02/09/20 04:50 Total Bilirubin 0.6 mg/dL (0.2-1.0) 02/09/20 04:50 AST 49 U/L (15-37) H 02/09/20 04:50 ALT 55 U/L (12-78) 02/09/20 04:50 Alkaline Phosphatase 88 U/L (45-117) 02/09/20 04:50 Lactate Dehydrogenase 638 U/L (87-241) H 02/09/20 04:50 Troponin I < 0.02 ng/mL (0.0-0.045) 02/09/20 04:50 C-Reactive Protein 288.00 mg/L (<3.00) H 02/09/20 04:50 NT-Pro-B Natriuret Pep 374 pg/mL (<125) H 02/09/20 04:50 Serum Total Protein 7.8 g/dL (6.4-8.2) 02/09/20 04:50 Albumin 2.7 g/dL (3.4-5.0) L 02/09/20 04:50 Globulin 5.1 g/dL (2.3-3.5) H 02/09/20 04:50 Albumin/Globulin Ratio 0.5 (1.1-1.8) L 02/09/20 04:50 Procalcitonin 3.59 ng/mL (<0.50) H 02/09/20 04:50 Medications List Reviewed: Yes Assessment & Plan - Problems (Diagnosis) (1) Pneumonia due to human coronavirus Current Visit: Yes Status: Acute (2) Respiratory failure Current Visit: Yes Status: Acute Plan: Assessment and plan Acute respiratory distress syndrome secondary to Covid pneumonia Leukocytosis suspect underlying secondary bacterial versus fungal infection: Acute on chronic renal failure stage 3 with hypernatremia and hyperkalemia with ATN related to COVID Subcutaneous emphysema Diabetes mellitus type 2 Essential hypertension Hyperlipidemia Chronic renal disease stage III Elevated liver function Plan: Acute respiratory distress syndrome secondary to Covid pneumonia: Intubated on mechanical ventilator support Appreciate help from pulmonology Currently on ventilator, sedated Status post convalescent plasma and Remdesivir. Pulmicort nebs Cultures negative so far Continue anticoagulation Leukocytosis suspect underlying secondary bacterial versus fungal infection: Continue current treatment Monitor blood, sputum and urine culture results. Acute on chronic renal failure stage 3 with hypernatremia and hyperkalemia with ATN related to COVID: Appreciate help from Nephrology Monitor Is& Os Optimize Lasix dosage. Hypernatremia increased the free water flushes Monitor closely BMP daily Appreciate help from nephrology Diabetes mellitus type 2: Continue Accu-Cheks. On basal insulin as well Will adjust Essential hypertension: Antihypertensives titrated Hyperlipidemia: Statin held due to elevated LFTs Elevated liver function: Patient off medication statin medication. Will monitor LFTs Hyperkalemia Resolved taper off propofol Monitor closely Disposition : Prognosis guarded Family yet to decide about the code status Overall prognosis is guarded Qualifiers: Chronicity: acute Physician Review Additional Text: I Time Spent Managing Pts Care (In Minutes): 42
[2020-02-28 09:58] LABS: Arterial Blood Carboxyhemoglob 1.3 % (0-1.5); Blood Gas Oxyhemoglobin 89.1 % (94-97); Blood O2 Saturation 91.3 % (92-98.5)
--- NOTE | 2020-02-28 10:16 | P.PN ---
Subjective Date of Service: 02/28/20 Primary Care Provider: Humberto Wells MD Chief Complaint: respiratory failure from adan virus Subjective Pt with resp. failure due to COVID 19, intubated, course complicated by subcutaneous emphysema , nephrology consulted for MANAN Today no change in clinical status Cr trending up , look euvoleumic , will rpt CXR tomorrow and consider to reduce lasix if Cr cont to trend up then will need to initiate HD high vanco level , hold vancomycin for now Physical exam general: sedated and intubated Neck; Supple, No elevated JVD heart: RRR, normal S1,2 no murmur or rub Chest: CTAB, no rlaes or wheezes Abdomen: Soft , Nt Extremities no edema Assessment And Plan: Acute kidney injury initially cr improved to 1.4 , now trending up to 2.7 possibly due to COVID Nephropathy if Cr cont to trend up then will need to initiate HD high vanco level , hold vancomycin for now Hypernatremia resolved Respiratory failure intubated due to COVID 19 COVID 19 Pneumonia cont supportive care S/P plasma and Remdesvir DM as per PCP sepsis cont abx hold vancomycin total time spent 55 min Prognosis guarded Physical Examination - Vital Signs Temperature: 97.6 F Blood Pressure: 103/59 Pulse: 87 Respirations: 20 Pulse Ox (%): 95 - Physical Exam Other Physical/Emotional Findings: I did not go physically in his room today. I was able to visualize and speak to him through the window. He seemed okay. He did not appear in any distress. Patient on BiPAP. Patient using less Fi02. Patient reports he is feeling better. - Studies Medications List Reviewed: Yes
--- NOTE | 2020-02-28 10:56 | P.PN ---
Subjective Date of Service: 03/05/20 Primary Care Provider: Humberto Wells MD Chief Complaint: respiratory failure from adan virus No change still on high concentrations of oxygen on propofol and paralytic agents Review of Systems is unable to be obtained Physical Examination - Vital Signs Temperature: 97.6 F Blood Pressure: 103/59 Pulse: 87 Respirations: 20 Pulse Ox (%): 95 - Physical Exam General: Other (Deferred) - Studies Medications List Reviewed: Yes Assessment & Plan - Problems (Diagnosis) (1) Respiratory failure Status: Acute Plan: No change in patient's condition will try and decrease his propofol and paralytic agents serum ferritin and CRP levels ordered titrate sat to 88% repeat arterial blood gases he is PO2 65 on 100% oxygen renal function is worse white count stable patient is on triple antibiotic blood cultures and negative Dc vancomycin and 2 0 decrease the nephrotoxicity Qualifiers: Chronicity: acute Physician Review Additional Text: I
[2020-02-28 12:34] LABS: C-Reactive Protein 83.2 mg/L (<3.00); Ferritin 1052.7 ng/mL (26-388)
[2020-02-28] MEDS: NEPRO 1,000 ML BOT RTH PRN (15:52)
[2020-02-28] MEDS: LORazepam 2 MG/ML VIAL IV PRN ×3 (16:27→23:43)
[2020-02-28] MEDS: D5W IV PRN (22:54)
[2020-02-28] MEDS: CISATRACURIUM BESYLATE IV PRN (22:54)
[2020-02-29] MEDS: LORazepam 2 MG/ML VIAL IV PRN ×4 (03:00→21:54)
[2020-02-29] MEDS: propofoL 1,000 MG/100 ML VIAL IV PRN ×2 (04:57→16:20)
[2020-02-29 05:18] LABS: Absolute Lymphocytes (CBC) 0.3 K/uL (0.7-4.9); Basophils % 0.7 % (0-1.3); Hematocrit 33.5 % (39.6-49.0); Lymphocytes % 1.5 % (15.3-44.8); MPV 9.3 fL (7.6-11.3); RBC Red Blood Cell Count 3.75 M/uL (4.33-5.43)
[2020-02-29] MEDS: carvediloL 3.125 MG TAB PO SCH ×2 (05:18→16:01)
[2020-02-29 05:25] LABS: Albumin 1.9 g/dL (3.4-5.0); Phosphorus 5.6 mg/dL (2.5-4.9); Potassium 4.2 mmol/L (3.5-5.1)
[2020-02-29] MEDS: INSULIN -REGULAR HUMAN 50 UNIT/0.5 ML ML SQ SCH ×4 (05:27→18:00)
[2020-02-29] MEDS: BUDESONIDE 0.5 MG/2 ML NEB NEB SCH ×2 (08:10→19:25)
[2020-02-29] MEDS: ALBUTEROL 2.5 MG/3 ML NEB SOL NEB SCH ×2 (08:10→19:25)
[2020-02-29] MEDS: ASCORBIC ACID 500 MG TABLET PO SCH (09:00)
[2020-02-29] MEDS: ZINC SULFATE 220 MG CAP PO SCH ×2 (09:00→20:48)
[2020-02-29] MEDS: APIXABAN 5 MG TABLET PO SCH ×2 (09:00→20:48)
[2020-02-29] MEDS: THIAMINE HCL 100 MG TABLET PO SCH (09:00)
--- NOTE | 2020-02-29 09:40 | P.PN ---
Subjective Date of Service: 03/05/20 (Telephone visit) Primary Care Provider: Humberto Wells MD Chief Complaint: respiratory failure from adan virus No change. No change in O2 requirement Physical Examination - Vital Signs Temperature: 98.5 F Blood Pressure: 136/75 Pulse: 110 Respirations: 19 Pulse Ox (%): 93 - Studies Medications List Reviewed: Yes Assessment & Plan - Problems (Diagnosis) (1) Respiratory failure Status: Acute Plan: Resp failure no change. Ferrtin level elevated. CRP has sig declined .WBC elevatedPrognosis poor/LAbs reviewed Qualifiers: Chronicity: acute
--- NOTE | 2020-02-29 10:10 | P.PN ---
Subjective Date of Service: 02/29/20 Primary Care Provider: Humberto Wells MD Chief Complaint: respiratory failure from adan virus Subjective Pt with resp. failure due to COVID 19, intubated, course complicated by subcutaneous emphysema , nephrology consulted for MANAN Today O2 sat 91 on 100FIO@ with PEEP of 18 Cr trending up , pt might require to initiate renal replacement therapy if BUn/cr cont to trend up poor prognosis Physical exam general: sedated and intubated Neck; Supple, No elevated JVD heart: RRR, normal S1,2 no murmur or rub Chest: CTAB, no rlaes or wheezes Abdomen: Soft , Nt Extremities no edema Assessment And Plan: Acute kidney injury initially cr improved to 1.4 , now trending up to 2.7 possibly due to COVID Nephropathy ans Johanny trauma Cr trending up , pt might require to initiate renal replacement therapy if BUn/cr cont to trend up high vanco level , hold vancomycin for now Hypernatremia resolved Hypoxic Respiratory failure intubated o2 sat in low 90s with FiO2 off 100 and PEEP of 18 due to COVID 19 COVID 19 Pneumonia cont supportive care S/P plasma and Remdesvir DM as per PCP sepsis cont abx hold vancomycin total time spent 55 min Poor Prognosis Physical Examination - Vital Signs Temperature: 98.5 F Blood Pressure: 136/75 Pulse: 110 Respirations: 19 Pulse Ox (%): 93 - Physical Exam Other Physical/Emotional Findings: I did not go physically in his room today. I was able to visualize and speak to him through the window. He seemed okay. He did not appear in any distress. Patient on BiPAP. Patient using less Fi02. Patient reports he is feeling better. - Studies Medications List Reviewed: Yes Assessment And Plan Physician Review Additional Text: I
--- NOTE | 2020-02-29 10:25 | P.PN ---
Subjective Date of Service: 02/29/20 Primary Care Provider: Humberto Wells MD Chief Complaint: respiratory failure from adan virus Subjective: No new changes Review of Systems is unable to be obtained Physical Examination - Vital Signs Temperature: 98.5 F Blood Pressure: 136/75 Pulse: 110 Respirations: 19 Pulse Ox (%): 93 - Physical Exam General: Other (Sedated ) HEENT: Atraumatic, Normocephalic Neck: Supple, 2+ carotid pulse no bruit Respiratory: Diminished, Crackles/rales Cardiovascular: Regular rate/rhythm, Normal S1 S2 Capillary refill: <2 Seconds Gastrointestinal: Soft and benign, W/out hepatosplenomegaly Musculoskeletal: No clubbing, No swelling Integumentary: No rashes, No tenderness/swelling Neurological: Other (Sedated) Lymphatics: No axilla or inguinal lymphadenopathy - Studies Medications List Reviewed: Yes Assessment & Plan - Problems (Diagnosis) (1) Pneumonia due to human coronavirus Current Visit: Yes Status: Acute (2) Respiratory failure Current Visit: Yes Status: Acute Plan: Assessment and plan Acute respiratory distress syndrome secondary to Covid pneumonia Leukocytosis suspect underlying secondary bacterial versus fungal infection: Acute on chronic renal failure stage 3 with hypernatremia and hyperkalemia with ATN related to COVID Subcutaneous emphysema Diabetes mellitus type 2 Essential hypertension Hyperlipidemia Chronic renal disease stage III Elevated liver function Plan: Acute respiratory distress syndrome secondary to Covid pneumonia: Still Intubated on mechanical ventilator support Appreciate help from pulmonology Currently on ventilator, sedated Status post convalescent plasma and Remdesivir. Pulmicort nebs Cultures negative so far Continue anticoagulation Leukocytosis suspect underlying secondary bacterial versus fungal infection: Continue current treatment Monitor blood, sputum and urine culture results. Acute on chronic renal failure stage 3 with hypernatremia and hyperkalemia with ATN related to COVID: Appreciate help from Nephrology Monitor Is& Os Optimize Lasix dosage. Monitored renal parameters Hypernatremia increased the free water flushes Monitor closely BMP daily Appreciate help from nephrology Diabetes mellitus type 2: Continue Accu-Cheks. On basal insulin as well Will adjust Essential hypertension: Antihypertensives titrated Hyperlipidemia: Statin held due to elevated LFTs Elevated liver function: Patient off medication statin medication. Will monitor LFTs Hyperkalemia Resolved taper off propofol CRP trending down Disposition : Prognosis guarded Family yet to decide about the code status Overall prognosis is guarded Qualifiers: Chronicity: acute Physician Review Additional Text: I Time Spent Managing Pts Care (In Minutes): 45
[2020-02-29] MEDS: FAMOTIDINE 20 MG/2 ML VIAL IV SCH (11:07)
[2020-02-29] MEDS: FUROSEMIDE 40 MG/4 ML VIAL IV SCH ×2 (11:07→20:49)
[2020-02-29] MEDS: dexAMETHasone 4 MG/ML VIAL IV SCH ×2 (11:07→20:48)
[2020-02-29] MEDS: INSULIN GLARGINE 100 UNITS/ML SQ SCH ×2 (11:08→21:09)
[2020-02-29] MEDS: NA CHLORIDE 0.9% IV SCH ×2 (11:18→20:49)
[2020-02-29] MEDS: FLUCONAZOLE 400 MG IVPB 400 MG/200 ML BAG IV SCH (11:18)
[2020-02-29] MEDS: MEROPENEM IV SCH ×2 (11:18→20:49)
[2020-02-29] MEDS: LACTULOSE 20 GM/30 ML UCUP PO PRN (16:16)
[2020-02-29] MEDS ORDERED: CISATRACURIUM INJECTION 2 MG/ML (10 ML Vial) IV ONE (20:15)
[2020-02-29] MEDS: FENTANYL CITR 100 MCG/2 ML IV PRN (21:14)
[2020-02-29] MEDS: D5W IV PRN (21:56)
[2020-02-29] MEDS: CISATRACURIUM BESYLATE IV PRN (21:56)
[2020-03-01] MEDS: carvediloL 3.125 MG TAB PO SCH ×2 (05:21→18:16)
[2020-03-01 05:48] LABS: Absolute Lymphocytes (CBC) 0.3 K/uL (0.7-4.9); Basophils % 0.9 % (0-1.3); Hematocrit 33.4 % (39.6-49.0); MPV 9.3 fL (7.6-11.3)
[2020-03-01] MEDS: NEPRO 1,000 ML BOT RTH PRN (05:57)
[2020-03-01] MEDS: INSULIN -REGULAR HUMAN 50 UNIT/0.5 ML ML SQ SCH ×5 (05:58→23:59)
[2020-03-01 06:13] LABS: Albumin 1.8 g/dL (3.4-5.0); Potassium 4.3 mmol/L (3.5-5.1)
[2020-03-01] MEDS: ALBUTEROL 2.5 MG/3 ML NEB SOL NEB SCH ×2 (07:45→20:56)
[2020-03-01] MEDS ORDERED: THIAMINE 200 MG/2 ML INJ IVP SCH (09:00)
[2020-03-01] MEDS: INSULIN GLARGINE 100 UNITS/ML SQ SCH ×2 (09:00→21:05)
--- NOTE | 2020-03-01 09:46 | P.PN ---
Subjective Date of Service: 03/01/20 Primary Care Provider: Humberto Wells MD Chief Complaint: respiratory failure from adan virus Subjective: No new changes, Other (Still intubated on mechanical ventilator.) Review of Systems is unable to be obtained Physical Examination - Vital Signs Temperature: 99.6 F Blood Pressure: 106/70 Pulse: 104 Respirations: 18 Pulse Ox (%): 92 - Physical Exam General: Other (Sedated) HEENT: Atraumatic, Normocephalic Neck: Supple Respiratory: Diminished, Crackles/rales Cardiovascular: Regular rate/rhythm, Normal S1 S2 Capillary refill: <2 Seconds Gastrointestinal: Soft and benign, W/out hepatosplenomegaly Musculoskeletal: No clubbing, No swelling Integumentary: No rashes Neurological: Other (Sedated) Lymphatics: No axilla or inguinal lymphadenopathy - Studies Medications List Reviewed: Yes Assessment & Plan - Problems (Diagnosis) (1) Pneumonia due to human coronavirus Current Visit: Yes Status: Acute (2) Respiratory failure Current Visit: Yes Status: Acute Plan: Assessment and plan Acute respiratory distress syndrome secondary to Covid pneumonia Leukocytosis suspect underlying secondary bacterial versus fungal infection: Acute on chronic renal failure stage 3 with hypernatremia and hyperkalemia with ATN related to COVID Subcutaneous emphysema Diabetes mellitus type 2 Essential hypertension Hyperlipidemia Chronic renal disease stage III Elevated liver function Plan: Acute respiratory distress syndrome secondary to Covid pneumonia: No acute changes noted Still Intubated on mechanical ventilator support Appreciate help from pulmonology Currently on ventilator, sedated Status post convalescent plasma and Remdesivir, steroids. Pulmicort nebs Cultures negative Continue anticoagulation Leukocytosis suspect underlying secondary bacterial versus fungal infection: Continue current treatment Monitor blood, sputum and urine culture results. Acute on chronic renal failure stage 3 with hypernatremia and hyperkalemia with ATN related to COVID: Appreciate help from Nephrology Monitor Is& Os Optimize Lasix dosage. Monitor renal parameters Renal parameters still elevated Hypernatremia Resolved With free water flushes Monitor closely BMP daily Appreciate help from nephrology Diabetes mellitus type 2: Continue Accu-Cheks. On basal insulin as well Will adjust insulin Essential hypertension: Antihypertensives titrated Hyperlipidemia: Statin held due to elevated LFTs Elevated liver function: Patient off medication statin medication. Will monitor LFTs Hyperkalemia Resolved CRP trending down Disposition : Prognosis guarded Family yet to decide about the code status Overall prognosis is guarded Qualifiers: Chronicity: acute Physician Review Additional Text: I Time Spent Managing Pts Care (In Minutes): 45
[2020-03-01] MEDS: METHYLPREDNISOLONE 125 MG INJ IV SCH ×4 (10:31→23:59)
[2020-03-01] MEDS: FAMOTIDINE 20 MG/2 ML VIAL IV SCH (10:32)
[2020-03-01] MEDS: ASCORBIC ACID 500 MG TABLET PO SCH (10:33)
[2020-03-01] MEDS: APIXABAN 5 MG TABLET PO SCH (10:34)
[2020-03-01] MEDS: FUROSEMIDE 40 MG/4 ML VIAL IV SCH (10:34)
[2020-03-01] MEDS: ZINC SULFATE 220 MG CAP PO SCH ×2 (10:34→20:23)
[2020-03-01] MEDS: NA CHLORIDE 0.9% IV SCH ×2 (10:35→20:22)
[2020-03-01] MEDS: MEROPENEM IV SCH ×2 (10:35→20:22)
[2020-03-01] MEDS: FLUCONAZOLE 400 MG IVPB 400 MG/200 ML BAG IV SCH (10:35)
[2020-03-01] MEDS: LACTULOSE 20 GM/30 ML UCUP PO PRN (10:37)
[2020-03-01] MEDS: propofoL 1,000 MG/100 ML VIAL IV PRN ×3 (10:37→22:55)
--- NOTE | 2020-03-01 12:27 | P.PN ---
Subjective Date of Service: 03/05/20 Primary Care Provider: Humberto Wells MD Chief Complaint: respiratory failure from adan virus No change. No change in O2 requirement patient is still on paralytics and a propofol Physical Examination - Vital Signs Temperature: 99.6 F Blood Pressure: 106/70 Pulse: 104 Respirations: 18 Pulse Ox (%): 92 - Studies Medications List Reviewed: Yes Assessment & Plan - Problems (Diagnosis) (1) Respiratory failure Status: Acute Plan: Respiratory failure no change in oxygen concentration will plan to do prone ventilation today increase the dose of steroids renal function is worse in a renal lease to address maybe back off on the diuretics for now prognosis very poor white count is declining is on maximal therapy maximum ventilator support spoke right lens to the [id number] who was in the medical feels explained to her about his condition prone ventilation the fact that his white count is declining Qualifiers: Chronicity: acute Physician Review Additional Text: I
--- NOTE | 2020-03-01 12:50 | P.PN ---
Subjective Date of Service: 03/01/20 Primary Care Provider: Humberto Wells MD Chief Complaint: respiratory failure from adan virus Subjective: Worsening Subjective Pt with resp. failure due to COVID 19, intubated, course complicated by subcutaneous emphysema , nephrology consulted for MANAN Today O2 sat 86 on 100FIO@ with PEEP of 18 plan to change to prone position Bun an Cr cont to trend up BUN > 100 , will need to start on HD, but need to hold Eliquis for 24-48hr before catheter insertion discussed with staff and Physical exam general: sedated and intubated Neck; Supple, No elevated JVD heart: RRR, normal S1,2 no murmur or rub Chest: CTAB, no rlaes or wheezes Abdomen: Soft , Nt Extremities no edema Assessment And Plan: Acute kidney injury initially cr improved to 1.4 , now trending up to 2.7 possibly due to COVID Nephropathy and Johanny trauma BUN > 100 , will need to start on HD, but need to hold Eliquis for 24-48hr before catheter insertion high vanco level , hold vancomycin for now Hypernatremia resolved Hypoxic Respiratory failure intubated o2 sat in low 90s with FiO2 off 100 and PEEP of 18 due to COVID 19 COVID 19 Pneumonia cont supportive care S/P plasma and Remdesvir DM as per PCP sepsis cont abx hold vancomycin total time spent 55 min Poor Prognosis Physical Examination - Vital Signs Temperature: 99.6 F Blood Pressure: 106/70 Pulse: 104 Respirations: 18 Pulse Ox (%): 92 - Physical Exam Other Physical/Emotional Findings: I did not go physically in his room today. I was able to visualize and speak to him through the window. He seemed okay. He did not appear in any distress. Patient on BiPAP. Patient using less Fi02. Patient reports he is feeling better. - Studies Medications List Reviewed: Yes Assessment And Plan Physician Review Additional Text: I
[2020-03-01] MEDS ORDERED: LORazepam 2 MG/ML VIAL IV PRN (16:06)
[2020-03-01] MEDS ORDERED: MIDAZOLAM HCL 2 MG/2 ML INJ IV PRN (16:07)
[2020-03-01] MEDS ORDERED: FENTANYL CITR 100 MCG/2 ML IV PRN (16:10)
[2020-03-01] MEDS: ACETAMINOPHEN 325 MG TABLET PO PRN (16:22)
[2020-03-01] MEDS: CISATRACURIUM BESYLATE IV PRN (18:15)
[2020-03-01] MEDS: D5W IV PRN (18:15)
[2020-03-01] MEDS: ATORVASTATIN 40 MG TAB PO SCH (20:22)
[2020-03-01] MEDS: MELATONIN 3 MG TABLET PO SCH (20:22)
[2020-03-01] MEDS: THIAMINE 200 MG/2 ML INJ IVP SCH (20:23)
[2020-03-02 04:48] LABS: Absolute Lymphocytes (CBC) 0.3 K/uL (0.7-4.9); Basophils % 0.3 % (0-1.3); Hematocrit 33.7 % (39.6-49.0); Lymphocytes % 2.2 % (15.3-44.8)
[2020-03-02 05:02] LABS: Albumin 1.8 g/dL (3.4-5.0); Phosphorus 8.3 mg/dL (2.5-4.9); Potassium 4.7 mmol/L (3.5-5.1)
[2020-03-02 05:19] LABS: Blood Morphology Comment NOT SEEN (NOT SEEN); Platelet Estimate ADEQ
[2020-03-02] MEDS: carvediloL 3.125 MG TAB PO SCH ×2 (05:24→17:33)
[2020-03-02] MEDS: INSULIN -REGULAR HUMAN 50 UNIT/0.5 ML ML SQ SCH ×3 (05:38→17:31)
[2020-03-02] MEDS: METHYLPREDNISOLONE 125 MG INJ IV SCH ×3 (05:39→17:30)
[2020-03-02] MEDS: propofoL 1,000 MG/100 ML VIAL IV PRN ×4 (05:49→22:33)
[2020-03-02] MEDS ORDERED: D5W IV ONE (07:30)
[2020-03-02] MEDS ORDERED: NA CHLORIDE 0.9% IV ONE (07:30)
[2020-03-02] MEDS ORDERED: CISATRACURIUM BESYLATE IV ONE ×2 (07:30)
[2020-03-02] MEDS: ALBUTEROL 2.5 MG/3 ML NEB SOL NEB SCH ×2 (07:47→20:30)
[2020-03-02] MEDS: ASCORBIC ACID 500 MG TABLET PO SCH (08:24)
[2020-03-02] MEDS: THIAMINE 200 MG/2 ML INJ IVP SCH ×2 (08:25→20:26)
[2020-03-02] MEDS: INSULIN GLARGINE 100 UNITS/ML SQ SCH ×2 (08:25→20:24)
[2020-03-02] MEDS: FAMOTIDINE 20 MG/2 ML VIAL IV SCH (08:25)
[2020-03-02] MEDS: ZINC SULFATE 220 MG CAP PO SCH ×2 (08:25→20:32)
[2020-03-02] MEDS: FLUCONAZOLE 400 MG IVPB 400 MG/200 ML BAG IV SCH (08:28)
[2020-03-02] MEDS: NA CHLORIDE 0.9% IV SCH ×2 (08:28→20:25)
[2020-03-02] MEDS: MEROPENEM IV SCH ×2 (08:28→20:25)
[2020-03-02] MEDS ORDERED: NA CHLORIDE 0.9% 500 ML IV ONE (09:06)
--- NOTE | 2020-03-02 09:48 | P.PN ---
Subjective Date of Service: 03/02/20 Primary Care Provider: Humberto Wells MD Chief Complaint: respiratory failure from adan virus Subjective: No new changes, Other (Still Intubated and on mechanical Vent Support) Review of Systems is unable to be obtained Physical Examination - Vital Signs Temperature: 99.4 F Blood Pressure: 123/69 Pulse: 99 Respirations: 18 Pulse Ox (%): 84 - Physical Exam General: Other (Sedated ) HEENT: Atraumatic, Normocephalic Neck: Supple Respiratory: Diminished, Crackles/rales Cardiovascular: Regular rate/rhythm, Normal S1 S2 Gastrointestinal: Soft and benign, W/out hepatosplenomegaly Musculoskeletal: No clubbing Integumentary: No rashes Neurological: Other (Sedated ) - Studies Medications List Reviewed: Yes Assessment & Plan - Problems (Diagnosis) (1) Pneumonia due to human coronavirus Current Visit: Yes Status: Acute (2) Respiratory failure Current Visit: Yes Status: Acute Plan: Assessment and plan Acute respiratory distress syndrome secondary to Covid pneumonia Leukocytosis suspect underlying secondary bacterial versus fungal infection: Acute on chronic renal failure stage 3 with hypernatremia and hyperkalemia with ATN related to COVID Subcutaneous emphysema Diabetes mellitus type 2 Essential hypertension Hyperlipidemia Chronic renal disease stage III Elevated liver function Plan: Acute respiratory distress syndrome secondary to Covid pneumonia: No acute changes noted Still Intubated on mechanical ventilator support Appreciate help from pulmonology Currently on ventilator, sedated Status post convalescent plasma and Remdesivir, Increased the dose of steroids. Pulmicort nebs Tried Proning Cultures negative Continue anticoagulation Leukocytosis suspect underlying secondary bacterial versus fungal infection: Continue current treatment Monitor blood, sputum and urine culture results. Acute on chronic renal failure stage 3 with hypernatremia and hyperkalemia with ATN related to COVID: Appreciate help from Nephrology Monitor Is& Os Optimize Lasix dosage. Monitored renal parameters Renal parameters still uptrending May need Dialysis Await further recommendation from Nephrology Hypernatremia Resolved Monitor closely BMP daily Appreciate help from nephrology Diabetes mellitus type 2: Continue Accu-Cheks. On basal insulin as well Will adjust insulin Essential hypertension: Antihypertensives titrated Hyperlipidemia: Statin held due to elevated LFTs Elevated liver function: Patient off medication statin medication. Will monitor LFTs Hyperkalemia Resolved CRP trending down Disposition : Prognosis guarded Family yet to decide about the code status Overall prognosis is guarded Qualifiers: Chronicity: acute Physician Review Additional Text: I
[2020-03-02] MEDS: NA CHLORIDE 0.9% 1,000 ML IV SCH (09:51)
--- NOTE | 2020-03-02 12:10 | P.PN ---
Subjective Date of Service: 03/05/20 Primary Care Provider: Humberto Wells MD Chief Complaint: respiratory failure from adan virus No change in patient's condition is still continues to remain very hypoxic febrile renal function is worse no change with prone position there ARDS have now been increased Physical Examination - Vital Signs Temperature: 99.4 F Blood Pressure: 123/69 Pulse: 99 Respirations: 18 Pulse Ox (%): 84 - Studies Medications List Reviewed: Yes Assessment & Plan - Problems (Diagnosis) (1) Respiratory failure Status: Acute Plan: Patient now has refractory ARDS he is on much higher doses of steroids no change with prone ventilation worsening renal failure white count has declined to 13.3 patient is still on 100% oxygen on IV propofol paralytic agents hypoxic hypercapnic Qualifiers: Chronicity: acute
[2020-03-02] MEDS ORDERED: METHYLPREDNISOLONE 125 MG INJ ONE (12:38)
[2020-03-02] MEDS ORDERED: ENOXAPARIN 100 MG/ML SYR SQ ONE (18:52)
[2020-03-02] MEDS: MELATONIN 3 MG TABLET PO SCH (20:31)
[2020-03-02] MEDS: ATORVASTATIN 40 MG TAB PO SCH (20:31)
[2020-03-02] MEDS ORDERED: ENOXAPARIN 100 MG/ML SYR SQ SCH (21:00)
--- NOTE | 2020-03-02 23:52 | PN ---
Date of Progress Note: 03/02/2020 Chief Complaint: Acute kidney injury due to severe acute tubular necrosis associated with severe pre renal azotemia as well as hyperazotemia. BUN is over 100 and it has increased since yesterday. Crea tinine level is up and the patient has fluid overload. He has COVID infection. He remains intubated . He has subcutaneous emphysema. BUN is over 100. Dialysis will be started. The patient had dialysis catheter placed today. O2 saturation is about 86% to 90% on FiO2 100% and PEEP of 18 and Pulmonary Service is planning to ch pam to progression. The patient remains in ICU. He is intubated. He has dialysis catheter. He remains hemodynamically stable. Laboratory Data: Hemoglobin 10.8, WBC 13.3, platelet count 246,000. Sodium 143, potassium 4.7, chlo ride 100, CO2 of 34, BUN is 144, creatinine 3.17, glucose 213, phosphorus 8.3, calcium 8.6. Blood ga s showed pH 7.34, pCO2 62.4, PO2 65.0, SpO2 is 89 and 91. Impression And Plan: Severe acute kidney injury, remains nonoliguric, although there is severe hyper azotemia, respiratory acidosis. The patient has COVID infection. X-ray shows infiltrates bilaterall y. Plan is to start dialysis to obtain metabolic clearance and ultrafiltration. Hyperkalemia is con trolled, although the hyperazotemia is escalating and chest x-ray showed pulmonary vascular congestio n, bilateral hazy pulmonary infiltrates. The patient has hypoxemia and he will start dialysis. Plan is to advance dialysis gradually and advance metabolic clearance and ultrafiltration. Monitor blood pressure during dialysis and adjust ultrafiltration goal as tolerated. EB/MODL Voice ID: [id number] Report ID: [id number]
[2020-03-03] MEDS: METHYLPREDNISOLONE 125 MG INJ IV SCH ×4 (00:31→17:00)
[2020-03-03] MEDS: INSULIN -REGULAR HUMAN 50 UNIT/0.5 ML ML SQ SCH ×4 (00:41→17:27)
[2020-03-03] MEDS: NA CHLORIDE 0.9% 1,000 ML IV SCH ×2 (01:17→15:26)
[2020-03-03] MEDS: propofoL 1,000 MG/100 ML VIAL IV PRN ×3 (02:37→19:28)
[2020-03-03] MEDS: D5W IV PRN ×2 (02:38→17:50)
[2020-03-03] MEDS: CISATRACURIUM BESYLATE IV PRN ×2 (02:38→17:50)
[2020-03-03] MEDS: carvediloL 3.125 MG TAB PO SCH (05:43)
[2020-03-03 07:42] LABS: Magnesium 3.1 mg/dL (1.8-2.4); Phosphorus 9.9 mg/dL (2.5-4.9)
[2020-03-03 07:47] LABS: Potassium 5.6 mmol/L (3.5-5.1)
--- NOTE | 2020-03-03 08:29 | RAD REPORT ---
EXAM DESCRIPTION: RAD - Chest Single View - 03/03/2020 8:07 am CLINICAL HISTORY: resp failure Chest pain. COMPARISON: Chest Single View dated 02/26/2020; Chest Single View dated 02/25/2020; Chest Single View dated 02/22/2020; Chest Single View dated 02/20/2020 FINDINGS: Portable technique limits examination quality. Mild improvement in lung aeration is seen since comparative study. The heart is normal in size. Tip o f the ET tube is above the jonel. Enteric tube descends into the stomach.Right-sided PICC line is un changed in position. IMPRESSION: Mild improvement in bilateral pulmonary opacities seen since 02/26/2020 study.
[2020-03-03] MEDS: ALBUTEROL 2.5 MG/3 ML NEB SOL NEB SCH (08:30)
[2020-03-03] MEDS ORDERED: Enoxaparin 120 MG/0.8 ML SYR SQ SCH (09:00)
--- NOTE | 2020-03-03 09:02 | P.PN ---
Subjective Date of Service: 03/03/20 Primary Care Provider: Humberto Wells MD Chief Complaint: respiratory failure from adan virus Subjective: No new changes, Other (The patien is hypotensive) Review of Systems is unable to be obtained Physical Examination - Vital Signs Temperature: 98.6 F Blood Pressure: 85/56 Pulse: 102 Respirations: 20 Pulse Ox (%): 86 - Physical Exam General: Other (sedated) HEENT: Atraumatic, Normocephalic Neck: Supple Respiratory: Diminished, Crackles/rales Cardiovascular: Regular rate/rhythm, Normal S1 S2 Capillary refill: >2 Seconds Gastrointestinal: Soft and benign, W/out hepatosplenomegaly Musculoskeletal: No clubbing, No swelling Integumentary: No rashes Neurological: Other (Sedated ) Lymphatics: No axilla or inguinal lymphadenopathy - Studies Medications List Reviewed: Yes Assessment & Plan - Problems (Diagnosis) (1) Pneumonia due to human coronavirus Current Visit: Yes Status: Acute (2) Respiratory failure Current Visit: Yes Status: Acute Plan: Assessment and plan Acute respiratory distress syndrome secondary to Covid pneumonia Leukocytosis suspect underlying secondary bacterial versus fungal infection: Acute on chronic renal failure stage 3 with hypernatremia and hyperkalemia with ATN related to COVID Subcutaneous emphysema Diabetes mellitus type 2 Essential hypertension Hyperlipidemia Chronic renal disease stage III Elevated liver function Plan: Acute respiratory distress syndrome secondary to Covid pneumonia: Still Intubated on mechanical ventilator support Appreciate help from pulmonology Currently on ventilator, sedated Status post convalescent plasma and Remdesivir, Tried Proning Increased the dose of steroids. Pulmicort nebs Cultures negative Continue anticoagulation Leukocytosis suspect underlying secondary bacterial versus fungal infection: Continue current treatment Monitor blood, sputum and urine culture results. Acute on chronic renal failure stage 3 with hypernatremia and hyperkalemia with ATN related to COVID: Appreciate help from Nephrology Monitor Is& Os Optimize Lasix dosage. Monitored renal parameters Renal parameters still uptrending May need Dialysis Await further recommendation from Nephrology Hypernatremia Resolved Monitor closely BMP daily Appreciate help from nephrology Diabetes mellitus type 2: Continue Accu-Cheks. On basal insulin as well Will adjust insulin Hyperlipidemia: Statin held due to elevated LFTs Elevated liver function: Patient off medication statin medication. Will monitor LFTs Hyperkalemia dialysis today Antihyperkalemic measures Septic shock Start on Levophed will hold antihypertensives Monitor closely Will repeat cultures Disposition : Prognosis guarded Family yet to decide about the code status Overall prognosis is guarded Qualifiers: Chronicity: acute Physician Review Additional Text: I Time Spent Managing Pts Care (In Minutes): 45
[2020-03-03] MEDS: INSULIN GLARGINE 100 UNITS/ML SQ SCH ×2 (09:23→21:42)
[2020-03-03] MEDS: FAMOTIDINE 20 MG/2 ML VIAL IV SCH (09:23)
[2020-03-03] MEDS: MEROPENEM IV SCH ×2 (09:23→21:43)
[2020-03-03] MEDS: ASCORBIC ACID 500 MG TABLET PO SCH (09:23)
[2020-03-03] MEDS: NA CHLORIDE 0.9% IV SCH ×2 (09:23→21:43)
[2020-03-03] MEDS: ZINC SULFATE 220 MG CAP PO SCH ×2 (09:23→21:42)
[2020-03-03] MEDS: THIAMINE 200 MG/2 ML INJ IVP SCH ×2 (09:24→21:44)
--- NOTE | 2020-03-03 10:49 | P.OP ---
Preoperative diagnosis: Need for Urgent Hemodialysis Postoperative diagnosis: Need for Urgent Hemodialysis Primary procedure: Placement of LEFT femoral Hemodialysis Catheter Secondary procedure: Micro intoducer and ultrasound guidance used Anesthesia: Local 1% Estimated blood loss: <5cc Specimen: none Findings: dark, non-pulsatile blood returned Complications: None Implants: LEFT femoral vein temporary hemodialysis catheter placed Transferred to: ICU Condition: Critical
[2020-03-03] MEDS: Enoxaparin 120 MG/0.8 ML SYR SQ SCH (11:26)
[2020-03-03] MEDS: NOREPINEPHRINE 4 MG in D5W 250 ML IV PRN ×2 (12:06→21:40)
--- NOTE | 2020-03-03 12:20 | P.PN ---
Subjective Date of Service: 03/05/20 Primary Care Provider: Humberto Wells MD Chief Complaint: respiratory failure from adan virus No change patient is still hypoxic still on maximum ventilatory support did not tolerate dialysis due to hypotension no change with prone position ventilation Review of Systems is unable to be obtained Physical Examination - Vital Signs Temperature: 98.6 F Blood Pressure: 85/56 Pulse: 102 Respirations: 20 Pulse Ox (%): 86 - Studies Medications List Reviewed: Yes Assessment & Plan - Problems (Diagnosis) (1) Respiratory failure Status: Acute Plan: Respiratory failure is secondary to her refractory ARDS his steroid dose has been increased with a significant decline in CRP levels worsening renal function unable to tolerate dialysis prognosis poor continue with supportive therapy he is on paralytics and intravenous IV sedation I will increase the dose of his steroids again chest x-ray shows an improvement patient is hypotensive agree with Levophed Dc beta-blockers Qualifiers: Chronicity: acute
[2020-03-03] MEDS: FLUCONAZOLE 400 MG IVPB 400 MG/200 ML BAG IV SCH (12:28)
[2020-03-03] MEDS ORDERED: NA CHLORIDE 0.9% 500 ML IV ONE (12:58)
--- NOTE | 2020-03-03 14:52 | P.CNS ---
Date of Consult: 03/02/20 PC: I was asked to see this 60-year-old male with end-stage renal disease and covered 19 for the insertion of a hemodialysis catheter. HPC: Patient is been in the hospital since February 07. Has increasing morbidity is. Now in renal failure. SOC: No known allergies SYS REVIEW: Patient is currently intubated, on 20 of PEEP, bladder percent FiO2 with only any percent sats. Has not been making any progress. Cannot be taken off his pressure support at the moment. He is on a propofol drip, with paralytic agents. O/E intubated, the ET tube is intact HEENT: Negative ABD: Soft nondistended LOCO: Intact DATA: Obvious respiratory end-stage renal disease IMPRESSION: This patient requires dialysis, and a temporary dialysis catheter niece be placed. He is not a candidate for a subclavian line. PLAN: I will attempt to place a femoral dialysis catheter.
[2020-03-03] MEDS ORDERED: ALBUTEROL 2.5 MG/3 ML NEB SOL NEB ONE (15:00)
[2020-03-03] MEDS ORDERED: D50W 25 GM/50 ML SYRINGE/VIAL IV ONE (15:00)
--- NOTE | 2020-03-03 15:00 | P.OP ---
Date of Service: 03/02/20 Surgeon: Lilly Preoperative diagnosis: End-stage renal disease Postoperative diagnosis: End-stage renal disease Procedure performed: Attempted placement of a right femoral vein temporary hemodialysis catheterx 2 Technique: The patient was positioned on the ICU bed with the leg slightly abducted. We stylus position of the femoral artery with the hand-held Doppler. This area was marked. The right groin was now prepped with a chlorhexidine solution. It was then draped in usual aseptic manner. After injecting with 1% lidocaine into this area to allow for adequate analgesia throughout the procedure a finer needle was used to cannulate the femoral vein. We were able to keep her finger on the artery and stay out of that area. Good blood flow having been were achieved the guidewire was now passed down through our wire. The opening at the skin level was widened. We passed the introducer down through the wire. The hole was gradually widened out. The hemodialysis catheter was now passed over the guidewire. Unfortunately during the procedure part of the guidewire became kinked. We were unable to advanced the catheter over the wire safely. At this point the guidewire and catheter were removed. We obtained another set, to start again. Pressure was held over the area of initial insertion to ensure adequate hemostasis. On the 2nd attempt once again the right groin was prepped with a chlorhexidine solution. Again 1% lidocaine was injected into the area. The final needle was used to find the cannulate taken subclavian vein. Once again the wire was passed down to the hilum he and went easily. On passing the dilators down through the subcutaneous tissue it became apparent there were unable to advance it safely. Once again the catheter hold on the wire. At this point the procedure was abandoned and the catheter was withdrawn a sterile dressing was applied once again to this area. I will consult with 1 of the other general surgeons to see if they can help establish the venous access for emergent dialysis. At the end of the procedure the patient was in the same condition, no evidence of any hematoma. EBL: Less than 20 cc. Patient condition: Critical
[2020-03-03] MEDS ORDERED: ALBUTEROL 2.5 MG/3 ML NEB SOL ONE (15:06)
[2020-03-03] MEDS ORDERED: INSULIN -REGULAR HUMAN 50 UNIT/0.5 ML ML IV ONE (15:15)
[2020-03-03] MEDS ORDERED: NA CHLORIDE 0.9% 250 ML IV ONE (19:44)
[2020-03-03] MEDS: ATORVASTATIN 40 MG TAB PO SCH (21:42)
[2020-03-03] MEDS: MELATONIN 3 MG TABLET PO SCH (21:42)
[2020-03-03] MEDS: APIXABAN 5 MG TABLET PO SCH (21:42)
--- NOTE | 2020-03-03 23:27 | PN ---
Date of Progress Note: 03/03/2020 Subjective: The patient was admitted with COVID pneumonia, developed respiratory distress, intubated , complicated with subcutaneous pneumothorax. The patient had also ARDS, vent-dependent, requiring h igh FiO2, high PEEP. The patient developed COVID nephropathy, nonoliguric. The patient start to martine ng dialysis dependent. The patient received dialysis yesterday. At the night, the patient developed low blood pressure, was started on Levophed. Physical Examination: Vital Signs: When I saw the patient, blood pressure 97/58, pulse of 110. The patient on FiO2 100%, saturating around 92-94%. The patient today start to have being oliguric. Chest: Crackles on the left base. Heart: S1, S2. Tachycardic. Abdomen: Soft, nontender. Extremities: No edema. Neurologic: The patient is sedated on vent. Laboratory Data: WBC 13.3, H and H 10.8/33.7, platelets 247. Potassium 5.6, sodium 136, bicarb 27, BUN 134, creatinine 3.7, glucose 331, calcium 7.2, phosphorus 9.9, magnesium 3.1. ABG showed pH 7.34 , CO2 62, O2 65, saturation of 89. Current Medications: The patient on include Eliquis, Tylenol, Nepro tube feeding, fentanyl, fluconaz ole, insulin, melatonin, midazolam, propofol, thiamine, and zinc sulfate. Assessment And Plan: 1.Acute kidney injury secondary to COVID nephropathy, oliguric, superimposed with poor perfusion, to xic acute tubular necrosis, complicated with hyperkalemia. I am going to continue the patient on uday lysis 3 times a week and we will monitor the patient. 2.Hypertension, currently hypotension with septic shock. Look to me possible on the dry side. I am going to go ahead and bolus the patient with 500 of normal saline and we will follow up the patient. 3.Hyperkalemia. We will give the patient the cocktail of albuterol and D50 with insulin. We will m onitor. 4.COVID pneumonia, acute respiratory distress syndrome. Continue current supportive care. Follow u p with Pulmonary. 5.Secondary hyperparathyroidism. We will start the patient on Renvela. MA/MODL Voice ID: [id number] Report ID: [id number]
[2020-03-04] MEDS: INSULIN -REGULAR HUMAN 50 UNIT/0.5 ML ML SQ SCH ×4 (00:36→17:07)
[2020-03-04] MEDS: METHYLPREDNISOLONE 125 MG INJ IV SCH ×2 (00:37→08:17)
--- NOTE | 2020-03-04 01:05 | OP ---
Date of Procedure: 03/02/2020 Surgeon: Heath Cazares MD, Preoperative Diagnosis: Need for urgent hemodialysis. Postoperative Diagnosis: Need for urgent hemodialysis. Procedure Performed: Placement of left femoral hemodialysis catheter using microintroducer under ult rasound guidance. Anesthesia: Local with 1% lidocaine used. Estimated Blood Loss: Less than 5 mL. Specimen: None. Findings: Dark red nonpulsatile blood return. Complications: None. Implants: Left femoral vein temporary hemodialysis catheter placed. Condition: The patient remained in ICU in critical condition throughout the procedure. Procedure In Detail: I was consulted by Dr. Carr to assist with the patient, who was having diffi cult access for hemodialysis as he had some abnormal anatomy. Therefore, using ultrasound guidance, I prepped and draped in the usual sterile fashion. Using ultrasound guidance, I placed the microintr oducer needle into the left femoral vein under direct vision without evidence of complication. The i nitiation of blood draw was performed at this point. Dark red nonpulsatile blood was return. Microw oscar was advanced. At this point, the needle was removed and I performed a small jaden incision over t he insertion site. At this point, I used the microintroducer sheath over the wire and placed into th e left femoral vein without evidence of complication. The microwire was removed. The inner cannula of the introducer sheath was removed and dark red nonpulsatile blood was returned. At this point, I then advanced a standard wire through the introducer sheath and then the introducer sheath was remove d, performed sequential dilatation using Seldinger technique and dilatation after being performed was easy. As such, I placed the catheter into the femoral vein without evidence of complication and the standard wire was removed. At this point, dark red nonpulsatile blood was return from both ports. Both were flushed easily with saline. At this point, packed with heparinized saline without evidence of complication. The catheter was then secured to the skin using an included 2-0 silk sutures and t he sterile dressing was placed over top. The patient tolerated the procedure well without evidence o f complication, remained in critical condition in the ICU throughout the procedure. TK/MODL Voice ID: [id number] Report ID: [id number]
[2020-03-04] MEDS: D5W IV PRN ×2 (01:26→10:03)
[2020-03-04] MEDS: CISATRACURIUM BESYLATE IV PRN ×2 (01:26→10:03)
[2020-03-04] MEDS: propofoL 1,000 MG/100 ML VIAL IV PRN ×2 (02:57→15:12)
[2020-03-04] MEDS: NA CHLORIDE 0.9% 1,000 ML IV SCH (03:08)
[2020-03-04] MEDS ORDERED: NOREPINEPHRINE 4 MG/4 ML VIAL ONE (03:50)
[2020-03-04] MEDS ORDERED: D5W 250 ML IV ONE (03:50)
[2020-03-04 07:25] VITALS: BMI 37.4
[2020-03-04] MEDS: ASCORBIC ACID 500 MG TABLET PO SCH (08:13)
[2020-03-04] MEDS: NA CHLORIDE 0.9% IV SCH (08:13)
[2020-03-04] MEDS: MEROPENEM IV SCH (08:13)
[2020-03-04] MEDS: ZINC SULFATE 220 MG CAP PO SCH (08:14)
[2020-03-04] MEDS: THIAMINE 200 MG/2 ML INJ IVP SCH (08:14)
[2020-03-04] MEDS: FAMOTIDINE 20 MG/2 ML VIAL IV SCH (08:17)
[2020-03-04] MEDS: INSULIN GLARGINE 100 UNITS/ML SQ SCH (08:17)
[2020-03-04] MEDS: FLUCONAZOLE 400 MG IVPB 400 MG/200 ML BAG IV SCH (08:18)
[2020-03-04] MEDS: APIXABAN 5 MG TABLET PO SCH (08:20)
[2020-03-04] MEDS: Enoxaparin 120 MG/0.8 ML SYR SQ SCH (08:21)
--- NOTE | 2020-03-04 08:25 | RAD REPORT ---
EXAM DESCRIPTION: RAD - Chest Single View - 03/04/2020 7:02 am CLINICAL HISTORY: resp failure Chest pain. COMPARISON: Chest Single View dated 03/03/2020; Chest Single View dated 02/26/2020; Chest Single View dated 02/25/2020; Chest Single View dated 02/22/2020 FINDINGS: Portable technique limits examination quality. Bilateral interstitial pulmonary opacities are again noted, appearing grossly unchanged since compara tive study. The heart is mildly enlarged. Enteric tube descends into the upper abdomen. Right-sided P ICC line is unchanged in position.Endotracheal tube tip is not clearly seen.
[2020-03-04] MEDS ORDERED: NOREPINEPHRINE 4mg/D5W 250mL 4 MG/250 ML BAG IV ONE (08:57)
[2020-03-04 09:25] LABS: Absolute Lymphocytes (CBC) 0.5 K/uL (0.7-4.9); Basophils % 0.9 % (0-1.3); Hematocrit 25.1 % (39.6-49.0); Lymphocytes % 2.4 % (15.3-44.8); MPV 9.7 fL (7.6-11.3); RBC Red Blood Cell Count 2.69 M/uL (4.33-5.43)
[2020-03-04 10:29] LABS: Albumin 1.3 g/dL (3.4-5.0); Potassium 5.5 mmol/L (3.5-5.1); Protein, Total 4.2 g/dL (6.4-8.2)
--- NOTE | 2020-03-04 10:59 | RAD REPORT ---
EXAM DESCRIPTION: RAD - Chest Single View - 03/04/2020 10:50 am CLINICAL HISTORY: E-tube placement Chest pain. COMPARISON: Chest Single View dated 03/04/2020; Chest Single View dated 03/03/2020; Chest Single View dated 02/26/2020; Chest Single View dated 02/25/2020 FINDINGS: Portable technique limits examination quality. Tip of the ET tube is above the jonel. Enteric tube descends in the stomach. Right-sided PICC line h as tip in the SVC. Bilateral pulmonary opacities are again noted, mildly progressive since comparativ e study. The heart is upper limit of normal in size.
--- NOTE | 2020-03-04 11:03 | P.PN ---
Subjective Date of Service: 03/04/20 Primary Care Provider: Humberto Wells MD Chief Complaint: respiratory failure from adan virus Subjective: No new changes, Worsening Review of Systems is unable to be obtained Physical Examination - Vital Signs Temperature: 98.7 F Blood Pressure: 87/36 Pulse: 99 Respirations: 20 Pulse Ox (%): 83 - Physical Exam General: Other (Sedated ) HEENT: Atraumatic, Normocephalic Neck: Supple Respiratory: Diminished, Crackles/rales Cardiovascular: Regular rate/rhythm, Normal S1 S2 Capillary refill: <2 Seconds Gastrointestinal: Soft and benign, W/out hepatosplenomegaly Musculoskeletal: No clubbing, No swelling Integumentary: No rashes Neurological: Other (Sedated, ) Lymphatics: No axilla or inguinal lymphadenopathy - Studies Medications List Reviewed: Yes Assessment & Plan - Problems (Diagnosis) (1) Pneumonia due to human coronavirus Current Visit: Yes Status: Acute (2) Respiratory failure Current Visit: Yes Status: Acute Plan: Assessment and plan Acute respiratory distress syndrome secondary to Covid pneumonia Leukocytosis suspect underlying secondary bacterial versus fungal infection: Acute on chronic renal failure stage 3 with hypernatremia and hyperkalemia with ATN related to COVID Subcutaneous emphysema Diabetes mellitus type 2 Essential hypertension Hyperlipidemia Chronic renal disease stage III Elevated liver function Plan: Acute respiratory distress syndrome secondary to Covid pneumonia: Still Intubated on mechanical ventilator support Appreciate help from pulmonology Currently on ventilator, sedated Status post convalescent plasma and Remdesivir, Tried Proning Increased the dose of steroids. Changed from Solu-Medrol to hydrocortisone as recommended by Nephrology Pulmicort nebs Cultures negative Continue anticoagulation Leukocytosis suspect underlying secondary bacterial versus fungal infection: Continue current treatment Monitor blood, sputum and urine culture results. Acute on chronic renal failure stage 3 with hypernatremia and hyperkalemia with ATN related to COVID: Appreciate help from Nephrology Monitor Is& Os Optimize Lasix dosage. Monitored renal parameters Renal parameters still high Status post dialysis SLEDGE Hypernatremia Resolved Monitor closely BMP daily Appreciate help from nephrology Diabetes mellitus type 2: Continue Accu-Cheks. On basal insulin as well Will adjust insulin Hyperlipidemia: Statin held due to elevated LFTs Elevated liver function: Patient off medication statin medication. Will monitor LFTs Hyperkalemia dialysis today Antihyperkalemic measures Septic shock on Levophed at 30 mcg Added on Albumin and vasopressin Monitor closely Repeat cultures Multiorgan failure Patient is slightly decompensated Monitor closely Disposition : Prognosis guarded Family yet to decide about the code status Overall prognosis is guarded Qualifiers: Chronicity: acute Physician Review Additional Text: I Time Spent Managing Pts Care (In Minutes): 46
[2020-03-04 11:14] LABS: Anisocytosis 1+; Blood Morphology Comment NOTED (NOT SEEN); Platelet Estimate ADEQ; Urine White Blood Cell Casts OK
[2020-03-04] MEDS: NOREPINEPHRINE 8 MG in D5W 250 ML IV PRN ×2 (11:27→15:20)
[2020-03-04] MEDS ORDERED: VASOPRESSIN 80 UNIT in NA CHLORIDE 0.9% 250 ML IV PRN (12:00)
[2020-03-04] MEDS ORDERED: METHYLPREDNISOLONE 125 MG INJ IV SCH (12:00)
[2020-03-04] MEDS ORDERED: ALBUMIN HUMAN 25% 200 ML IV ONE (12:01)
--- NOTE | 2020-03-04 12:19 | P.PN ---
Subjective Date of Service: 03/05/20 Primary Care Provider: Humberto Wells MD Chief Complaint: respiratory failure from adan virus Patient's condition has worsened he is now in had refractory shock requiring high doses of vasopressors renal function worsen able to dialysis still on maximum ventilatory support Physical Examination - Vital Signs Temperature: 98.7 F Blood Pressure: 87/36 Pulse: 99 Respirations: 20 Pulse Ox (%): 83 - Studies Medications List Reviewed: Yes Assessment & Plan - Problems (Diagnosis) (1) Respiratory failure Status: Acute Plan: patient has refractory respiratory failure and refractory is shock on vasopressin maximum therapy still on 100% off FiO2 unable to do dialysis due to hypotension renal function is worse all we can do at this point is to increase his steroids given more insulin prognosis very poor patient on likely to survive Qualifiers: Chronicity: acute
[2020-03-04] MEDS ORDERED: ALBUTEROL 2.5 MG/3 ML NEB SOL NEB ONE (12:37)
[2020-03-04] MEDS ORDERED: D50W 25 GM/50 ML SYRINGE/VIAL IV ONE (12:37)
[2020-03-04] MEDS ORDERED: D50W 25 GM/50 ML SYRINGE/VIAL IV PRN (12:38)
[2020-03-04] MEDS ORDERED: GLUCAGON 1 MG/VIAL IM PRN (12:38)
[2020-03-04] MEDS ORDERED: INSULIN -REGULAR HUMAN 50 UNIT/0.5 ML ML IV ONE (13:00)
[2020-03-04] MEDS ORDERED: MIDODRINE HCL 5 MG TABLET PO SCH ×2 (14:00)
[2020-03-04] MEDS ORDERED: CALCIUM GLUC 10% INJ 4.65 MEQ in NA CHLORIDE 0.9% 100 ML IV SCH (16:00)
[2020-03-04] MEDS ORDERED: PARICALCITOL 2 MCG/ML VIAL IV SCH (16:00)
[2020-03-04 16:10] VITALS: O2SAT 74
[2020-03-04] MEDS ORDERED: HYDROCORTISONE SUC 100 MG INJ IV SCH ×2 (17:00→18:00)
--- NOTE | 2020-03-04 18:38 | PN ---
Date of Progress Note: 03/04/2020 Subjective: The patient was admitted with COVID pneumonia, developed respiratory failure, and subcut aneous pneumothorax. The patient had acute kidney injury, oliguric, required to start on dialysis. Last dialysis 2 days ago. The patient had low blood pressure on the last 24/48 hours. Placed on Lev ophed today, had to be on vasopressin. Blood pressure is still marginally low. Physical Examination: Vital Signs: Blood pressure 87/36, pulse of 99, requiring still 100% FiO2. Chest: Faint crackles on the left base. Heart: S1, S2. Tachy. Abdomen: Soft, nontender. Extremities: No edema. Neuro: The patient is sedated. Laboratory Data: WBC 21, H and H 8/25.1, platelets 289. Sodium 128, potassium 5.5, bicarb 19, BUN 1 61, creatinine 5.2, glucose 458, calcium 5.9. PTH 170, triglyceride 320. Current Medications: The patient on include fluconazole, meropenem, cetrizine, vasopressin, Levophed , atorvastatin, propofol, Pepcid, Zofran, insulin, prednisone. IV fluid normal saline at 70 per hour . Assessment And Plan: 1.Acute kidney injury secondary to multiorgan failure, poor perfusion, acute tubular necrosis, toxic acute tubular necrosis, low blood pressure, oliguric, normal volume, marginal hyperkalemia, and acid osis. I am going to go ahead and postpone the dialysis for today and we will follow up the patient. Hopefully tomorrow, we will be able to do dialysis. 2.Secondary hyperparathyroidism with significant hypocalcemia. I am going to start the patient on Z emplar. 3.Hypertension, currently hypotension. Continue pressor. 4.Septic shock, poor perfusion, acute tubular necrosis, multiorgan failure. I agree with Levophed a nd vasopressin. We are going to switch Solu-Medrol to hydrocortisone for the mineral effect. We mayte l add for the patient midodrine 10 mg b.i.d. and tomorrow hopefully if we needing dialysis, we are go ing to try to do SLED. We will follow up the patient. 5.Multiorgan failure secondary to COVID pneumonia. Continue supportive care, follow up with hospita list and Critical Care. 6.Hyperkalemia. We are going to treat with albuterol, D50 and insulin, and we will follow up. SOLANGE/MODL Voice ID: [id number] Report ID: [id number]
--- NOTE | 2020-03-05 09:11 | P.DS ---
Admission Date: 02/09/20 Discharge Date: 03/05/20 Primary Care Provider: Humberto Wells MD Disposition: Reason for Admission: respiratory failure from adan virus - Problems (1) Pneumonia due to human coronavirus Status: Acute (2) Respiratory failure Status: Acute Qualifiers: Chronicity: acute Brief History of Present Illness: 59-year-old male with past medical history of hypertension and hyperlipidemia presents to the emergency room complaining of worsening shortness of breath. Patient states that 2 weeks ago patient was screened for Covid and was informed last week that he was negative. Since then he states that his [id number], brother and sister have all tested positive. States that brother and sister were in [facility] floating the natalia and shortly after tested positive. Patient also states that at work he is usually in contact with many people. States that he has not been very compliant with wearing a mask. States that approximately 1 week ago patient started with a cough. States that the cough has progressively worsened. States that he vomited 6 x 2 days ago, 2 x 1 day ago and has not vomited today. States that he continues with the cough and feels short of breath. In the emergency room patient was tested for Covid pneumonia. Currently blood work is pending. He is requiring O2 support at 2 L nasal cannula to maintain his oxygen saturations above 90% patient states he does not use oxygen at home. States that he is a little sore across the upper right and left abdominal quadrants likely from vomiting. In emergency room patient received IV steroids and IV Lasix. Fluids were discontinued and patient was placed on O2 support. Hospital Course: Cardio respiratory arrest Multiorgan failure Acute respiratory distress syndrome secondary to Covid pneumonia Septic shock Acute on chronic renal failure stage 3 with hypernatremia and hyperkalemia with ATN related to COVID Subcutaneous emphysema Diabetes mellitus type 2 Essential hypertension Hyperlipidemia Chronic renal disease stage III Elevated liver function 60-year-old male with past medical history of diabetes hypertension hyperlipidemia admitted with shortness of breath and worsening of respiratory discomfort. He had a prolonged hospital stay as he was Intubated and was on mechanical ventilator support Status post convalescent plasma and Remdesivir, Tried Proning , steroids , Along with anticoagulation and other supportive measures Multiple consultants were involved in the care of the patient including pulmonology and nephrology. In spite of all the effort patient went into septic shock and multiorgan failure and was started on dialysis as well. Patient went to cardiac arrest and subsequently. Vital Signs/Physical Exam: Temp Pulse Resp BP Pulse Ox 97.1 F 71 20 56/23 L 66 L 03/04/20 16:00 03/04/20 18:45 03/04/20 18:45 03/04/20 18:45 03/04/20 18:45 Laboratory Data at Discharge: WBC 21.0 K/uL (4.3-10.9) H* D 03/04/20 08:25 Hgb 8.0 g/dL (13.6-17.9) L D 03/04/20 08:25 Hct 25.1 % (39.6-49.0) L D 03/04/20 08:25 Plt Count 289 K/uL (152-406) 03/04/20 08:25 PT 15.9 SECONDS (9.5-12.5) H 02/09/20 04:50 INR 1.36 02/09/20 04:50 APTT 35.9 SECONDS (24.3-36.9) 02/09/20 04:50 Sodium 128 mmol/L (136-145) L 03/04/20 Unknown Potassium 5.5 mmol/L (3.5-5.1) H 03/04/20 Unknown BUN 161 mg/dL (7-18) H D 03/04/20 Unknown Creatinine 5.20 mg/dL (0.55-1.3) H* D 03/04/20 Unknown Glucose 458 mg/dL (74-106) H* 03/04/20 Unknown Uric Acid 3.0 mg/dL (3.5-7.2) L 02/19/20 05:25 Phosphorus 9.9 mg/dL (2.5-4.9) H* 03/03/20 05:30 Magnesium 3.1 mg/dL (1.8-2.4) H D 03/03/20 05:30 Total Bilirubin 1.0 mg/dL (0.2-1.0) 03/04/20 Unknown AST 103 U/L (15-37) H 03/04/20 Unknown ALT 119 U/L (12-78) H 03/04/20 Unknown Alkaline Phosphatase 73 U/L (45-117) 03/04/20 Unknown Troponin I < 0.02 ng/mL (0.0-0.045) 02/09/20 04:50 Triglycerides 320 mg/dL (<150) H 03/04/20 Unknown Cholesterol 205 mg/dL (<200) H 02/24/20 Unknown HDL Cholesterol 35 mg/dL (40-60) L 02/24/20 Unknown Cholesterol/HDL Ratio 5.86 02/24/20 Unknown Home Medications: Candesartan/Hydrochlorothiazid [Candesartan-Hctz 32-12.5 mg Tb] 1 tab PO DAILY 02/08/20 Ezetimibe [Zetia] 10 mg PO DAILY 02/08/20 Rosuvastatin [Crestor] 10 mg PO DAILY 02/08/20 bisoproloL fumarate [Zebeta] 10 mg PO DAILY 02/08/20
--- NOTE | 2020-03-05 13:51 | CON ---
Date of Consultation: 03/03/2020 Brief History Of Present Illness: The patient is a 60-year-old male who came in with history of hype rtension, hyperlipidemia with complaints of shortness of breath and he was tested positive and found to have coronavirus. He had a worsening respiratory function and continued to progressively get wors e due to his concomitant COVID infection. He was placed in the ICU, intubated, and had hemodynamic i nstability, multiorgan failure. Dr. Carr was consulted to place a temporary hemodialysis catheter , which was challenging and as such, Dr. Carr requested that I assist with this and as such I came in to help place a tunnel hemodialysis catheter in the femoral position on an emergent basis. There fore, past medical history and information is obtained predominantly from the chart. Past Medical History: Significant for a nasal septal surgery and inguinal hernia repair. He lives a t home with his . There was no history of smoking. Alcohol was done recreationally. No recreat ional drug use by report. Home Medications: Unable to obtain. Allergies: UNABLE TO OBTAIN. Review of Systems: Unable to obtain. Physical Examination: Vital signs: The patient was hemodynamically unstable, on multiple pressors, ventilator sedated. Ex amination was truncated and focused on the inguinal areas and groin as this was the location for plac emkhadijah. The right femoral area had been accessed and a catheter was unable to be placed. As such I a ccessed the left groin area and assessed this area to be appropriate for placement of a femoral vein temporary hemodialysis catheter. I used ultrasound guidance to verify this and found the vein to be of adequate size and position. Assessment And Plan: This is a 60-year-old male who presents with COVID infection, sedated, intubate d, hemodynamic instability, acute multiorgan failure requiring hemodialysis. I placed the catheter e mergently in the left femoral area without evidence of complication. Thank you for this interesting consult. FABIANA/TESFAYE Voice ID: [id number] Report ID: [id number]
[2020-03-05 21:32] VITALS: BP 87/36; TEMP 98.7
== END 2020-03-04 22:00 | disposition expired | DRG 870 ==
LOC: ER 14:04 → ERHOLD 16:20 → 3RD-ICU 17:55 → OBSVTOIN 02-09 07:12 → 3RD-ICU 02-09 11:41
PROVIDERS: ADMIT Internal Medicine Sleep Medicine; ATTEND Family Medicine
PROC: 8E0ZXY6 Isolation (ICD-10-PCS; 2020-02-09)
PROC: 30233K1 Transfusion of Nonautologous Frozen Plasma into Peripheral Vein, Percutaneous Approach (ICD-10-PCS; 2020-02-10)
PROC: 3E04329 Introduction of Other Anti-infective into Central Vein, Percutaneous Approach (ICD-10-PCS; 2020-02-10)
PROC: 5A1955Z Respiratory Ventilation, Greater than 96 Consecutive Hours (ICD-10-PCS; principal; 2020-02-15)
PROC: 0BH17EZ Insertion of Endotracheal Airway into Trachea, Via Natural or Artificial Opening (ICD-10-PCS; 2020-02-15)
PROC: 02HV33Z Insertion of Infusion Device into Superior Vena Cava, Percutaneous Approach (ICD-10-PCS; 2020-02-15)
PROC: 06HY33Z Insertion of Infusion Device into Lower Vein, Percutaneous Approach (ICD-10-PCS; 2020-03-02)
PROC: 5A1D70Z Performance of Urinary Filtration, Intermittent, Less than 6 Hours Per Day (ICD-10-PCS; 2020-03-02)
DX: A41.89 Other specified sepsis (principal); U07.1 COVID-19; J12.89 Other viral pneumonia; J80 Acute respiratory distress syndrome; R65.21 Severe sepsis with septic shock; N17.0 Acute kidney failure with tubular necrosis; E44.1 Mild protein-calorie malnutrition; T79.7XXA Traumatic subcutaneous emphysema, initial encounter; E87.0 Hyperosmolality and hypernatremia; J93.83 Other pneumothorax; N25.81 Secondary hyperparathyroidism of renal origin; Z68.20 Body mass index [BMI] 20.0-20.9, adult; E78.5 Hyperlipidemia, unspecified; N18.3 Chronic kidney disease, stage 3 (moderate); I12.9 Hypertensive chronic kidney disease with stage 1 through stage 4 chronic kidney disease, or unspecified chronic kidney disease; R79.89 Other specified abnormal findings of blood chemistry; R31.9 Hematuria, unspecified; E87.5 Hyperkalemia; E11.22 Type 2 diabetes mellitus with diabetic chronic kidney disease; L89.229 Pressure ulcer of left hip, unspecified stage; R00.0 Tachycardia, unspecified; E83.51 Hypocalcemia; I46.9 Cardiac arrest, cause unspecified; Z90.49 Acquired absence of other specified parts of digestive tract
CPT/HCPCS: 36415; 36430; 36569; 71045; 76770; 80048; 80053; 80061; 80069; 80076; 80202; 81003; 81015; 82435; 82533; 82550; 82553; 82565; 82570; 82728; 82805; 82947; 83036; 83605; 83615; 83735; 83880; 83935; 83970; 84100; 84132; 84145; 84156; 84165; 84300; 84443; 84478; 84484; 84550; 85025; 85027; 85379; 85610; 85730; 86021; 86038; 86140; 86160; 86225; 86317; 86430; 86704; 86706; 86850; 86900; 86901; 86927; 87040; 87070; 87081; 87086; 87088; 87205; 87340; 87522; 87804; 90935; 94002; 94003; 94640; 94660; 94667; 94668; 94760; 96374; 99285; G0378; J0330; J0456; J0610; J0692; J1100; J1450; J1644; J1650; J1720; J1815; J1940; J2250; J2501; J2704; J2930; J3010; J3370; J3411; J7030; J7040; J7050; J7060; J7510; P9047; U0002